=== PATIENT | female | born 1935 | race Caucasian/White ===

== ENCOUNTER 2016-08-24 17:09 | Inpatient (IN) | payer OTHER ==
[~2016-08-24] VITALS: Ht 162.6 cm; Wt 64.8 kg
[~2016-08-24 17:09] MED LIST: ANT25 PO; ASPI325T45 PO; ATOR-22 PO; CITA20TA4 PO; CYAN10004 PO; LCTS240 PO; LISI1TAB3 PO; LISI20TA3 PO; METO-452 PO; OXYB10TA13 PO; WARF5TAB90 PO
[2016-08-24] MEDS ORDERED: PANTOprazole INJ 80 MG in DEXTROSE 5% 100ML IV SCH (17:45)
[2016-08-24 17:55] LABS: URINE APPEARANCE CLEAR (CLEAR); URINE BILIRUBIN NEG (NEG); URINE COLOR YELLOW; URINE NITRITE NEG (NEG); URINE SPECIFIC GRAVITY 1.017 (1.000-1.030); UROBILINOGEN NEG (NEG); ZZUR CULT IF INDIC CLEAN CATCH NO
[2016-08-24 18:00] LABS: MANUAL MICROSCOPIC REQUIRED? NO; REVIEW REQ? NO
[2016-08-24] MEDS ORDERED: PANTOprazole INJ 40 MG in DEXTROSE 5% 100ML IV SCH (18:00)
[2016-08-24 18:22] LABS: INR 2.1 (0.9-1.1); PARTIAL THROMBOPLASTIN RATIO 1.1; PROTHROMBIN TIME (PATIENT) 22.9 SECONDS (9.0-12.0)
[2016-08-24 18:24] LABS: HEMATOCRIT 22.8 % (37-47); MEAN CORPUSCULAR HEMOGLOBIN 18.5 pg (25-34); MEAN CORPUSCULAR HGB CONC 28.9 g/dl (32-36); MEAN PLATELET VOLUME 8.3 fL (7.4-10.4); PLATELET COUNT 326 K/uL (130-400); RED BLOOD COUNT 3.56 M/uL (4.2-5.4); WHITE BLOOD COUNT 6.57 K/uL (4.8-10.8)
[2016-08-24] MEDS ORDERED: SERT50TA PO (18:25)
[2016-08-24] MEDS ORDERED: WARF2TAB8 PO (18:25)
[2016-08-24 18:30] LABS: BLOOD UREA NITROGEN 16 mg/dl (7-18); CALCIUM 8.5 mg/dl (8.5-10.1); CARBON DIOXIDE 27 mmol/L (21-32); CHLORIDE 108 mmol/L (98-107); CREATININE 0.81 mg/dl (0.60-1.20); GLUCOSE 92 mg/dl (70-99); POTASSIUM 4.1 mmol/L (3.5-5.1); SODIUM 142 mmol/L (136-145)
[2016-08-24] MEDS ORDERED: ACET500T57 PO (18:39)
[2016-08-24] MEDS ORDERED: MRLP17X PO (18:39)
[2016-08-24] MEDS ORDERED: LACT10SO17 PO (18:39)
[2016-08-24] MEDS ORDERED: ONDANSETRON INJ 2 MG/ML 2 ML VIAL IV PRN (18:45)
[2016-08-24] MEDS ORDERED: ACETAMINOPHEN 325 MG TAB PO PRN (18:45)
[2016-08-24] MEDS ORDERED: PHYTONADIONE 5 MG TAB PO STA (18:53)
[2016-08-24] MEDS ORDERED: SODIUM CHLORIDE 0.9% 1000ML 1,000 ML IV SCH (19:00)
[2016-08-24 19:20] VITALS: BP 122/75; PULSE 89; TEMP 36.8; O2SAT 100; Ht 162.6 cm; Wt 64.8 kg
[2016-08-24 19:46] LABS: BASO % 0.9 %; BASO ABS # 0.06 K/uL (0-0.2); COMPLETE YES; EOS % 4.4 %; HYPOCHROMIA PRESENT; IG% 0.2 %; LYMPH % 27.4 %; MICROCYTOSIS PRESENT; MONO % 12.5 %; NEUT % 54.6 %; POLYCHROMASIA 1+; TEAR DROP CELLS 1+
--- NOTE | 2016-08-24 20:48 | History and Physical ---
History & Physical Date & Time of Service: August 24, 2016 at 19:05 Chief Complaint: Hemoglobins Are Low Primary Care Physician: Vipul Eduardo M.D.([email or web address]) History of Present Illness Source: patient, family (sons at bedside) This is an 81 year old female with PMH of AF on Coumadin, hx TIA, hypertension, and other problems listed below who was sent to the ED from PCP Dr. Eduardo's office for abnormal labs. Patient was seen in clinic today for routine f/u and outpatient Hg was 6.8 with baseline of 12 on last labs in early 2015. Patient reports generalized weakness, fatigue, PRIETO, intermittent lightheadedness for past few months. She denies noting dark/ tarry stool or hematochezia. No other bleeding noted. She bruises easily. Denies weight loss, fever, URI sx, cough, dyspnea at rest, palpitations, abdominal pain, nausea, vomiting, diarrhea, constipation, dysuria, frequency, focal neurological symptoms. Denies prior GIB. Last colonoscopy in 2013 in [place] significant for polypectomy of tubular adenoma. No prior EGD. Denies hx of GERD or PUD. Last dose of Coumadin was this morning. Denies taking NSAIDs. In the ER rectal exam showed dark brown heme positive per ER provider. 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 (8) TIA (transient ischemic attack) Status: Resolved Surgical Problems: (1) S/P oophorectomy Permanent Comment: left Status: Chronic (2) S/P partial colectomy Permanent Comment: 04/26/98 Status: Chronic (3) S/P partial hysterectomy Status: Chronic (4) S/P small bowel resection Permanent Comment: 01/18/99 Status: Chronic Family History FH: cancer Social History Smoking Status: Never Smoker Alcohol Use: none Marital Status: Multi-Drug Resistant Organisms History of MDRO: No Allergies Coded Allergies: No Known Allergies (Unverified , 08/24/16) Home Medications Scheduled Atorvastatin (Lipitor), 20 MG PO DAILY Lisinopril (Zestril), 30 MG PO DAILY Metoprolol Succinate (Toprol Xl), 25 MG PO DAILY Sertraline (Zoloft), 1.5 TAB PO DAILY Warfarin Sod (Jantoven), 2 MG PO DIRECTED Scheduled PRN Acetaminophen (Acetaminophen), 1,000 MG PO Q6 PRN for Pain or Fever Lactulose (Chronulac), 15 ML PO BID PRN for Constipation Polyethylene (Miralax), 17 GM PO DAILY PRN for Constipation Review of Systems Ten systems reviewed and negative except as noted in HPI. Physical Exam Vital Signs Date Time Temp Pulse Resp B/P Pulse Ox O2 Delivery O2 Flow Rate FiO2 08/24/16 17:15 37.0 98 18 100/67 100 Room Air General Appearance: WD/WN, no apparent distress, + pertinent finding (pleasant alert elderly female, appears comfortable, not in distress, sons at bedside) Head: normocephalic, atraumatic Eyes: normal inspection, PERRL, EOMI ENT: hearing grossly normal, pharynx normal Neck: supple, trachea midline Respiratory/Chest: lungs clear, normal breath sounds, no respiratory distress, no accessory muscle use Cardiovascular: no murmur, + irregularly irregular (rate 90s) Abdomen/GI: normal bowel sounds, non tender, soft Diagnostics Laboratory Results Results Past 24 Hours Test 08/24/16 17:35 08/24/16 18:01 Range/Units Urine Color YELLOW Urine Appearance CLEAR CLEAR Urine pH 6.0 4.5-7.5 Urine Specific [place] 1.017 1.000-1.030 Urine Protein NEG NEG Urine Glucose (UA) NEG NEG Urine Ketones NEG NEG Urine Occult Blood NEG NEG Urine Nitrite NEG NEG Urine Bilirubin NEG NEG Urine Urobilinogen NEG NEG Urine Leukocyte Esterase SMALL NEG Urine WBC (Auto) 1-5 0-5 /hpf Urine RBC (Auto) 0-4 0-4 /hpf Urine Hyaline Casts (Auto) 1-5 0-5 /lpf Urine Epithelial Cells (Auto) 10-20 0-5 /lpf Urine Bacteria (Auto) NEG NEG White Blood Count 6.57 4.8-10.8 K/uL Red Blood Count 3.56 4.2-5.4 M/uL Hemoglobin 6.6 12.0-16.0 g/dL Hematocrit 22.8 37-47 % Mean Corpuscular Volume 64.0 80-100 fL Mean Corpuscular Hemoglobin 18.5 25-34 pg Mean Corpuscular Hemoglobin Concent 28.9 32-36 g/dl Platelet Count 326 130-400 K/uL Mean Platelet Volume 8.3 7.4-10.4 fL RDW Standard Deviation 45.2 36.4-46.3 fL RDW Coefficient of Variation 19.2 11.5-14.5 % Prothrombin Time 22.9 9.0-12.0 SECONDS Prothromb Time International Ratio 2.1 0.9-1.1 Activated Partial Thromboplast Time 29.1 21.0-31.0 SECONDS Partial Thromboplastin Ratio 1.1 Sodium Level 142 136-145 mmol/L Potassium Level 4.1 3.5-5.1 mmol/L Chloride Level 108 98-107 mmol/L Carbon Dioxide Level 27 21-32 mmol/L Anion Gap 7.0 3-11 mmol/L Blood Urea Nitrogen 16 7-18 mg/dl Creatinine 0.81 0.60-1.20 mg/dl Est Creatinine Clear Calc Drug Dose 49.2 ml/min Estimated GFR () 78.9 Estimated GFR (Non- 68.1 BUN/Creatinine Ratio 20.0 10-20 Random Glucose 92 70-99 mg/dl Calcium Level 8.5 8.5-10.1 mg/dl Troponin I < 0.015 0-0.045 ng/ml EKG atrial fibrillation, 95 bpm, no ST or T wave abnormality Impression Assessment and Plan SYMPTOMATIC ANEMIA Secondary to GI bleed in setting of Coumadin anticoagulation (INR is 2.1) Possible upper GIB; noted to have dark heme + stool by ER provider Hemodynamics relatively stable- HR 90s, BP 100 systolic Hg 6.8 as outpatient earlier today -> 6.6 in ER; baseline 12 in early 2005 No prior EGD; colonoscopy 2013- tubular adenoma Continue Protonix drip started in ER Will give 2 units FFP and 5 mg PO vitamin K Transfuse 1 unit pRBC; will hold additional 2 units Monitor H/H q8h; transfuse PRN for goal Hg > 8 Gentle IVFs at 70 cc/ hour NPO except sips/ chips, then NPO after midnight Recheck CBC and INR in am Consult GI; Case aware PERMANENT ATRIAL FIBRILLATION Rate in 90s Continue metoprolol with parameters Hold Coumadin for GIB HYPERTENSION BP is low normal 100 systolic Gentle IVF's Hold lisinopril Continue metoprolol with parameters DEPRESSION Continue Zoloft DYSLIPIDEMIA Hold statin for now DVT PROPHYLAXIS SCDs due to GIB FULL CODE Per my discussion with the patient DISPOSITION Admit to telemetry Lives alone Follows with Dr. Eduardo for primary care Patient seen in collaboration with Dr. Morse. Please see her addendum. ATTENDING NOTE : record reviewed pt interviewed and examined care coordinated with Melissa Bauman PA-C please see her documentation for detail patient history Briefly 81 yo F with hx of Chronic Afib on Coumadin found to have profound anemia during routine office visit pt reports of feeling weak and tired, getting fatigued easily , poor endurance does not recall having dark stool Hb 6.8 with microcytic anemia , concern for possible GI bleed pt in Coumadin INR therapeutic 2.1 stool heme occult positive in ED P/E: GEN : no sign of distress , sclera non icteric HEENT : nAD HT ; regular S1/S2 LUNGS; CTA no wheeze or rales ABDOMEN : soft,non tender EXT : no rash or deformity NEURO: AAO x3, no focal deficit A/P: SYMPTOMATIC ANEMIA : ordered for PRRB tx -goal to Keep H b> 8 pt remains stable hemodynamically NPO ordered for PPI gtt monitor H&H closely GI eval requested possible endoscopic procedure tomorrow CHRONIC AFIB : remains rate controlled monitor in tele cont beta nicole Hold Coumadin for concern for GI bleed need to reverse INR for GI /Endoscopic procedure tomorrow ordered for FFP and vit K repeat INR in AM FULL CODE Please refer to Melissa Zambrano documentation for discussion of other issues Erika Morse MD Resuscitation Status FULL RESUSCITATION VTE Prophylaxis VTE Risk Assessment Done? Y/N: Yes Risk Level: Moderate Given or contraindicated: T.E.D. Stockings, SCD's Additional Copies To Vipul Eduardo M.D.(HUGH)
[2016-08-24] MEDS ORDERED: PNEUMOCOCCAL POLYSACCHARIDES 25 MCG/0.5 ML VIAL/SYR IM. ONE (21:30)
[2016-08-24] MEDS ORDERED: PNEUMOCOCCAL ADMINISTRATION CHARGE ONE (21:30)
[2016-08-24] MEDS: PANTOprazole INJ 40 MG in DEXTROSE 5% 100ML IV SCH (22:04)
--- NOTE | 2016-08-24 23:04 | EMERGENCY ROOM VISIT NOTE ---
History Report prepared by Elidia: Lauren Betancourt Under the Supervision of: Dr. Harlan Deleon M.D. First contact with patient: 17:22 Chief Complaint: ABNORMAL LABS Stated Complaint: HEMOGLOBINS ARE LOW History of Present Illness The patient is a 81 year old female who presents to the Emergency Room with abnormal labs. The patient recently saw her PCP and had her labs checked for the first time in about 1 year. Her hemoglobin level was 6 and she was called today and told to come to the ED for further evaluation. The patient reports that she has been feeling more weak and tired recently. She notes that her stools have been darker than usual. She also reports shortness of breath with exertion. The patient denies headache, vomiting, hematochezia, abdominal pain, chest pain, urinary symptoms, and any leg swelling. She denies any recent injury or falls. She denies any cuts or bleeding. She denies any history of ulcers. She has been eating normally. She is on Coumadin. The patient has been taking her medications as prescribed. She notes only intermittent NSAID use as needed for headaches. Source of History: patient Onset: [employer] Position: other (global) Symptom Intensity: hemoglobin of 6 Timing: constant Modifying Factors (Worsening): exertion Associated Symptoms: + SOB, + fatigue, + melena, + weakness, No abdominal pain, No chest pain, No headache, No hematochezia, No urinary symptoms, No vomiting Review of Systems See HPI for pertinent positives & negatives. A total of 10 systems reviewed and were otherwise negative. 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 Social History Smoking Status: Never Smoker Alcohol Use: none Drug Use: none Marital Status: Housing Status: lives with family Current/Historical Medications Scheduled Atorvastatin (Lipitor), 20 MG PO DAILY Lisinopril (Zestril), 30 MG PO DAILY Metoprolol Succinate (Toprol Xl), 25 MG PO DAILY Sertraline (Zoloft), 1.5 TAB PO DAILY Warfarin Sod (Jantoven), 2 MG PO DIRECTED Scheduled PRN Acetaminophen (Acetaminophen), 1,000 MG PO Q6 PRN for Pain or Fever Lactulose (Chronulac), 15 ML PO BID PRN for Constipation Polyethylene (Miralax), 17 GM PO DAILY PRN for Constipation Allergies Coded Allergies: No Known Allergies (Unverified , 08/24/16) Physical Exam Vital Signs Date Time Temp Pulse Resp B/P Pulse Ox O2 Delivery O2 Flow Rate FiO2 08/24/16 17:15 37.0 98 18 100/67 100 Room Air Physical Exam GENERAL: Patient is well appearing and in no acute distress. HEENT: No acute trauma, normocephalic atraumatic, mucous membranes moist, no nasal congestion, no scleral icterus, pale conjunctiva. NECK: No stridor, no adenopathy, no meningismus, trachea is midline. LUNGS: No dyspnea. Clear to auscultation and equal bilaterally. No wheeze, no rhonchi. HEART: Regular rate and rhythm. No murmurs, rubs, gallops appreciated. ABDOMEN: Soft, nontender, bowel sounds positive, no masses appreciated, no peritonitis. RECTAL: Dark brown, heme positive stool, normal perirectal area, no tenderness, no lacerations. BACK: No midline tenderness, no CVA tenderness EXTREMITIES: Normal motion all extremities, no cyanosis, no edema. NEUROLOGIC: Alert and oriented, no acute motor or sensory deficits, no focal weakness, cranial nerves grossly intact. SKIN: No rash, no jaundice, no diaphoresis. Medical Decision & Procedures Laboratory Results 08/24/16 18:01 Red Blood Count 3.56, Mean Corpuscular Volume 64.0, Mean Corpuscular Hemoglobin 18.5, Mean Corpuscular Hemoglobin Concent 28.9, Mean Platelet Volume 8.3, Neutrophils (%) (Auto) 54.6, Lymphocytes (%) (Auto) 27.4, Monocytes (%) (Auto) 12.5, Eosinophils (%) (Auto) 4.4, Basophils (%) (Auto) 0.9, Neutrophils # (Auto ) 3.59, Lymphocytes # (Auto) 1.80, Monocytes # (Auto) 0.82, Eosinophils # (Auto ) 0.29, Basophils # (Auto) 0.06 08/24/16 18:01 Test 08/24/16 17:35 08/24/16 18:01 Urine Color YELLOW Urine Appearance CLEAR (CLEAR) Urine pH 6.0 (4.5-7.5) Urine Specific [place] 1.017 (1.000-1.030) Urine Protein NEG (NEG) Urine Glucose (UA) NEG (NEG) Urine Ketones NEG (NEG) Urine Occult Blood NEG (NEG) Urine Nitrite NEG (NEG) Urine Bilirubin NEG (NEG) Urine Urobilinogen NEG (NEG) Urine Leukocyte Esterase SMALL (NEG) Urine WBC (Auto) 1-5 /hpf (0-5) Urine RBC (Auto) 0-4 /hpf (0-4) Urine Hyaline Casts (Auto) 1-5 /lpf (0-5) Urine Epithelial Cells (Auto) 10-20 /lpf (0-5) Urine Bacteria (Auto) NEG (NEG) White Blood Count 6.57 K/uL (4.8-10.8) Red Blood Count 3.56 M/uL (4.2-5.4) Hemoglobin 6.6 g/dL (12.0-16.0) Hematocrit 22.8 % (37-47) Mean Corpuscular Volume 64.0 fL (80-100) Mean Corpuscular Hemoglobin 18.5 pg (25-34) Mean Corpuscular Hemoglobin Concent 28.9 g/dl (32-36) Platelet Count 326 K/uL (130-400) Mean Platelet Volume 8.3 fL (7.4-10.4) Neutrophils (%) (Auto) 54.6 % Lymphocytes (%) (Auto) 27.4 % Monocytes (%) (Auto) 12.5 % Eosinophils (%) (Auto) 4.4 % Basophils (%) (Auto) 0.9 % Neutrophils # (Auto) 3.59 K/uL (1.4-6.5) Lymphocytes # (Auto) 1.80 K/uL (1.2-3.4) Monocytes # (Auto) 0.82 K/uL (0.11-0.59) Eosinophils # (Auto) 0.29 K/uL (0-0.5) Basophils # (Auto) 0.06 K/uL (0-0.2) RDW Standard Deviation 45.2 fL (36.4-46.3) RDW Coefficient of Variation 19.2 % (11.5-14.5) Immature Granulocyte % (Auto) 0.2 % Immature Granulocyte # (Auto) 0.01 K/uL (0.00-0.02) Polychromasia 1+ Hypochromasia PRESENT Microcytosis PRESENT Tear Drop Cells 1+ Prothrombin Time 22.9 SECONDS (9.0-12.0) Prothromb Time International Ratio 2.1 (0.9-1.1) Activated Partial Thromboplast Time 29.1 SECONDS (21.0-31.0) Partial Thromboplastin Ratio 1.1 Anion Gap 7.0 mmol/L (3-11) Est Creatinine Clear Calc Drug Dose 49.2 ml/min Estimated GFR () 78.9 Estimated GFR (Non- 68.1 BUN/Creatinine Ratio 20.0 (10-20) Calcium Level 8.5 mg/dl (8.5-10.1) Total Bilirubin 0.9 mg/dl (0.2-1) Direct Bilirubin 0.2 mg/dl (0-0.2) Aspartate Amino Transf (AST/SGOT) 18 U/L (15-37) Alanine Aminotransferase (ALT/SGPT) 16 U/L (12-78) Alkaline Phosphatase 56 U/L (45-117) Troponin I < 0.015 ng/ml (0-0.045) Total Protein 6.7 gm/dl (6.4-8.2) Albumin 3.3 gm/dl (3.4-5.0) Laboratory results as reviewed by me. Medications Administered Medications (Trade) Dose Ordered Sig/[place]aven Route Start Time Stop Time Status Last Admin Dose Admin Pantoprazole Sodium 80 mg/ Dextrose 120 ml @ 480 mls/hr TODAY@1745 IV 08/24/16 17:45 08/24/16 17:59 DC 08/24/16 17:45 480 MLS/HR Pantoprazole Sodium/Dextrose (Protonix Inj/D5 100ml) 100 ml @ 20 mls/hr Q5H IV 08/24/16 18:00 08/24/16 22:59 DC 08/24/16 19:10 20 MLS/HR ECG Indication: weakness Rate (beats per minute): 95 Rhythm: atrial fibrillation Findings: no acute ischemic change, other (normal QTC) ED Course 1722: The patient was evaluated in room C6. A complete history and physical exam was performed. The patient consented to receiving blood. At this time I discussed the results and treatment plan with the patient. I answered all pertaining questions that she had. She expressed understanding and verbalized agreement. 1731: I discussed the patient's case with her son and he is in agreement with the treatment plan as well. 1745: Pantoprazole Sodium 80 mg/Dextrose 120 ml @ 480 mls/hr IV 1746: I spoke with ADAM Iniguez. We discussed the patients case and [facility] 1800: Pantoprazole Sodium 40 mg/Dextrose 100 ml @ 20 mls/hr IV Medical Decision Differential: Diverticulitis, AVM, Coagulopathy, Colitis, Malignancy, Upper GI bleed, Fissure, Hemorrhoids, amongst other pathologies entertained. 81 yr old female arrives for evaluation of anemia. She notes feeling weak over the last few months having periodic dark stools. Clearly heme positive. History of GERD and is on Coumadin. INR 2.1 and discussed with hospitalist who will manage this. Given IV Protonix. 1 Unit PRBC ordered after extensive discussion of risks benefits with patient and she agrees. No abdominal TTP. Stable here and in no distress. Consults Time Called: 1741 Consulting Physician: Carol Bauman PA-C Returned Call: 1745 I spoke with ADAM Iniguez. We discussed the patients case and [facility]. Impression Primary Impression: Acute GI bleeding Additional Impression: Blood loss anemia Scribe Attestation The scribe's documentation has been prepared under my direction and personally reviewed by me in its entirety. I confirm that the note above accurately reflects all work, treatment, procedures, and medical decision making performed by me. Departure Information Dispostion Being Evaluated By Hospitalist Referrals Ruiz Davis M.D. (PCP) Patient Instructions My [facility] Problem Qualifiers
[2016-08-24 23:19] VITALS: BP 126/76; PULSE 90; TEMP 36.7; O2SAT 98
[2016-08-24 23:34] VITALS: BP 125/81; PULSE 85; TEMP 36.9; O2SAT 99
[2016-08-25] VITALS (24 sets, daily range): BP systolic 106–139; BP diastolic 59–96; PULSE 83–98; TEMP 36.5–36.9; O2SAT 93–100
[2016-08-25] MEDS: PANTOprazole INJ 40 MG in DEXTROSE 5% 100ML IV SCH ×3 (05:00→15:29)
[2016-08-25 07:48] LABS: HEMATOCRIT 24.2 % (37-47); MEAN CELL VOLUME 67.8 fL (80-100); MEAN CORPUSCULAR HEMOGLOBIN 20.7 pg (25-34); MEAN CORPUSCULAR HGB CONC 30.6 g/dl (32-36); MEAN PLATELET VOLUME 8.5 fL (7.4-10.4); PLATELET COUNT 264 K/uL (130-400); RED BLOOD COUNT 3.57 M/uL (4.2-5.4); WHITE BLOOD COUNT 6.07 K/uL (4.8-10.8)
--- NOTE | 2016-08-25 07:48 | Gastrointestinal Consultation ---
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 Pt was seen and evaluated this AM. She tells me as an outpatient she was feeling over all well up until about two three months ago. At this time, there was progressive worsening fatigue, weakness and PRIETO. She always felt well after resting. Denies any epigastric abdominal pain, signs of acid reflux, nausea, vomiting, black or bloody stools. Her last colonoscopy was in [facility] in 2013 and was overall benign - there is a distant history of colon CA w/ resection in 1998. Today, denies fever, chills, chest pain, SOB, abdominal pain, black/bloody stools. 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 Past Surgical History: left oophorectomy, partial colectomy 1998, partial hysterectomy, small bowel resection 1998 Family History FH: cancer Social History Smoking Status: Never Smoker Alcohol Use: none Drug Use: none Marital Status: Housing Status: lives with family Allergies Coded Allergies: No Known Allergies (Unverified , 08/24/16) Current Medications Home Meds and Scripts Medications Dose Route/Sig Max Daily Dose Days Date Category Dose Instructions Miralax (Polyethylene) 17 Gm Pow 17 Gm PO DAILY PRN 08/24/16 Reported Chronulac (Lactulose) 10 Gm/15 Ml Syrp 15 Ml PO BID PRN 08/24/16 Reported Acetaminophen 500 Mg Tab 1,000 Mg PO Q6 PRN 15 08/24/16 Reported Zoloft (Sertraline HCl) 50 Mg Tab 1.5 Tab PO DAILY 08/24/16 Reported Jantoven (Warfarin Sodium) 2 Mg Tab 2 Mg PO DIRECTED 08/24/16 Reported Take 2 mg by mouth on Sunday, Sunday, Sunday, Sunday. Take 4 mg by mouth on Sunday, , Sunday. Lipitor (Atorvastatin Calcium) 20 Mg Tab 20 Mg PO DAILY 05/05/15 Reported Zestril (Lisinopril) 30 Mg Tab 30 Mg PO DAILY 05/05/15 Reported Toprol Xl (Metoprolol Succinate) 50 Mg Tab 25 Mg PO DAILY 02/24/12 Reported Review of Systems Constitutional: No chills, No fever Respiratory: No cough, No shortness of breath Abdomen: No GI bleeding, No constipation, No diarrhea, No nausea, No pain, No vomiting Physical Exam Date Time Temp Pulse Resp B/P Pulse Ox O2 Delivery O2 Flow Rate FiO2 08/25/16 06:24 36.9 92 16 119/62 97 08/25/16 05:24 36.8 88 16 125/72 97 08/25/16 04:54 36.8 90 16 126/72 97 08/25/16 04:39 36.7 92 16 115/80 97 08/25/16 04:00 Room Air 08/25/16 03:45 36.7 88 16 116/81 97 08/25/16 02:45 36.8 93 16 115/86 97 08/25/16 02:15 36.8 84 20 117/79 98 08/25/16 02:08 36.8 84 16 118/71 98 08/25/16 01:04 36.8 88 16 110/59 97 08/25/16 00:04 36.7 98 20 120/77 99 08/24/16 23:59 Room Air 08/24/16 23:34 36.9 85 20 125/81 99 08/24/16 23:19 36.7 90 20 126/76 98 08/24/16 19:20 36.8 89 20 122/75 100 Room Air 08/24/16 17:15 37.0 98 18 100/67 100 Room Air General Appearance: no apparent distress Eyes: PERRL ENT: hearing grossly normal Neck: supple Respiratory/Chest: lungs clear Cardiovascular: no murmur, + irregularly irregular Abdomen: normal bowel sounds, non tender, soft, no organomegaly, no pulsatile mass Neurologic/Psych: alert, normal mood/affect, oriented x 3 Skin: normal color, warm/dry Laboratory Results Last 24 Hours Test 08/24/16 17:35 08/24/16 18:01 08/25/16 04:44 08/25/16 06:00 Urine Color YELLOW Urine Appearance CLEAR Urine pH 6.0 Urine Specific [place] 1.017 Urine Protein NEG Urine Glucose (UA) NEG Urine Ketones NEG Urine Occult Blood NEG Urine Nitrite NEG Urine Bilirubin NEG Urine Urobilinogen NEG Urine Leukocyte Esterase SMALL Urine WBC (Auto) 1-5 /hpf Urine RBC (Auto) 0-4 /hpf Urine Hyaline Casts (Auto) 1-5 /lpf Urine Epithelial Cells (Auto) 10-20 /lpf Urine Bacteria (Auto) NEG White Blood Count 6.57 K/uL Red Blood Count 3.56 M/uL Hemoglobin 6.6 g/dL Hematocrit 22.8 % Mean Corpuscular Volume 64.0 fL Mean Corpuscular Hemoglobin 18.5 pg Mean Corpuscular Hemoglobin Concent 28.9 g/dl Platelet Count 326 K/uL Mean Platelet Volume 8.3 fL Neutrophils (%) (Auto) 54.6 % Lymphocytes (%) (Auto) 27.4 % Monocytes (%) (Auto) 12.5 % Eosinophils (%) (Auto) 4.4 % Basophils (%) (Auto) 0.9 % Neutrophils # (Auto) 3.59 K/uL Lymphocytes # (Auto) 1.80 K/uL Monocytes # (Auto) 0.82 K/uL Eosinophils # (Auto) 0.29 K/uL Basophils # (Auto) 0.06 K/uL RDW Standard Deviation 45.2 fL RDW Coefficient of Variation 19.2 % Immature Granulocyte % (Auto) 0.2 % Immature Granulocyte # (Auto) 0.01 K/uL Polychromasia 1+ Hypochromasia PRESENT Microcytosis PRESENT Tear Drop Cells 1+ Prothrombin Time 22.9 SECONDS Prothromb Time International Ratio 2.1 Activated Partial Thromboplast Time 29.1 SECONDS Partial Thromboplastin Ratio 1.1 Sodium Level 142 mmol/L Potassium Level 4.1 mmol/L Chloride Level 108 mmol/L Carbon Dioxide Level 27 mmol/L Anion Gap 7.0 mmol/L Blood Urea Nitrogen 16 mg/dl Creatinine 0.81 mg/dl Est Creatinine Clear Calc Drug Dose 49.2 ml/min Estimated GFR () 78.9 Estimated GFR (Non- 68.1 BUN/Creatinine Ratio 20.0 Random Glucose 92 mg/dl Calcium Level 8.5 mg/dl Total Bilirubin 0.9 mg/dl Direct Bilirubin 0.2 mg/dl Aspartate Amino Transf (AST/SGOT) 18 U/L Alanine Aminotransferase (ALT/SGPT) 16 U/L Alkaline Phosphatase 56 U/L Troponin I < 0.015 ng/ml Total Protein 6.7 gm/dl Albumin 3.3 gm/dl Impression Patient is a 81 year old female with suspected SOLO without any s/s of gross GI bleeding - she caries a history of colon CA w/ resection in 1998. Plan NPO EGD today with Dr. Thakur Colonoscopy Sunday if admitted with Dr. Donnelly Primary team please arrange prep 20 mg of dulcolax at 1700 4L co-lytely 1500 NPO after midnight Continue current treatment Hold Coumadin Trend H&H Transfuse as needed PPI once daily Further recommendations pending results of EGD. GI to follow. ATTESTATION: I have performed a history and physical examination of this patient and reviewed the electronic record. Specifically, on history the patient has not noted bleeding or any significant gastrointestinal symptoms and on physical examination there is on abdominal tenderness. I have discussed the case with ADAM Tolbert. The above note reflects my findings, conclusions, and recommendations. Abdias Thakur MD
[2016-08-25 08:04] LABS: INR 1.6 (0.9-1.1); PROTHROMBIN TIME (PATIENT) 17.2 SECONDS (9.0-12.0)
[2016-08-25 08:22] LABS: BUN/CREATININE RATIO 18.3 (10-20); CREATININE 0.75 mg/dl (0.60-1.20); POTASSIUM 3.7 mmol/L (3.5-5.1)
[2016-08-25] MEDS: METOPROLOL SUCC 25MG EXT REL TAB PO SCH (08:48)
[2016-08-25 08:57] LABS: CALCIUM 8.8 mg/dl (8.5-10.1)
[2016-08-25] MEDS ORDERED: SERTRALINE HCL 50 MG TAB PO SCH (09:00)
[2016-08-25] MEDS ORDERED: PROPOFOL IV EMULSION 10 MG/ML 20 ML VIAL IV ONE (11:49)
[2016-08-25] MEDS ORDERED: LIDOCAINE HCL 2% 2 ML VIAL (20MG/ML) ONE (11:49)
[2016-08-25] MEDS ORDERED: PHENYLEPHRINE HCL INJ 10 MG/ML VIAL ONE (11:49)
--- NOTE | 2016-08-25 12:22 | GI REPORT ---
Procedure Date: 08/25/2016 11:34 AM Procedure: Upper GI endoscopy Indications: Iron deficiency anemia Medicines: Monitored Anesthesia Care Complications: No immediate complications. Estimated blood loss: None. Estimated Blood Loss: Estimated blood loss: none. Procedure: Pre-Anesthesia Assessment: - Prior to the procedure, a History and Physical was performed, and patient medications, allergies and sensitivities were reviewed. The patient's tolerance of previous anesthesia was reviewed. - ASA Grade Assessment: III - A patient with severe systemic disease. After obtaining informed consent, the endoscope was passed under direct vision. Throughout the procedure, the patient's blood pressure, pulse, and oxygen saturations were monitored continuously. The scope was introduced through the mouth, and advanced to the third part of the duodenum. Small bowel enteroscopy was deemed necessary. The upper GI endoscopy was accomplished with ease. The patient tolerated the procedure well. Findings: The upper third of the esophagus, middle third of the esophagus and lower third of the esophagus were normal. A mild Schatzki ring (acquired) was found at the gastroesophageal junction. A medium-sized hiatus hernia was present. The entire examined stomach was normal. Biopsies were taken with a cold forceps for Helicobacter pylori testing. The examined duodenum was normal. Biopsies for histology were taken with a cold forceps for evaluation of celiac disease. Verification of patient identification for the specimens was done by the physician and nurse using the patient's name, date and medical record number. Impression: - Normal upper third of esophagus, middle third of esophagus and lower third of esophagus. - Mild Schatzki ring. - Medium-sized hiatus hernia. - Normal stomach. Biopsied. - Normal examined duodenum. Biopsied. Recommendation: - Perform a colonoscopy at appointment to be scheduled. - [facility]. Abdias Thakur M.D. Abdias Thakur MD 08/25/2016 12:23:17 PM This report has been signed electronically. Note Initiated On: 08/25/2016 11:34 AM I attest to the content of the Intraoperative Record and orders documented therein, exceptions below
[2016-08-25] MEDS ORDERED: ESMOLOL HCL 10 MG/ML 10 ML VIAL ONE (12:26)
--- NOTE | 2016-08-25 13:47 | Anesthesiology Progress Note ---
Anesthesia Post Op Note Date & Time August 25, 2016 at 13:47 Vital Signs Pain Intensity: 0.0 Vital Signs Past 12 Hours Date Time Temp Pulse Resp B/P Pulse Ox O2 Delivery O2 Flow Rate FiO2 08/25/16 13:19 36.5 83 22 115/71 100 Room Air 08/25/16 12:53 98 20 142/82 98 Room Air 08/25/16 12:35 98 20 109/77 98 Room Air 08/25/16 12:20 90 20 111/81 98 Room Air 08/25/16 11:06 37 95 20 119/69 97 Room Air 08/25/16 10:39 36.9 84 18 117/72 96 Room Air 08/25/16 10:38 36.9 84 18 117/72 96 Room Air 08/25/16 08:00 100 Room Air 08/25/16 07:46 36.9 98 16 139/96 100 Room Air 08/25/16 06:24 36.9 92 16 119/62 97 08/25/16 05:24 36.8 88 16 125/72 97 08/25/16 04:54 36.8 90 16 126/72 97 08/25/16 04:39 36.7 92 16 115/80 97 08/25/16 04:00 Room Air 08/25/16 03:45 36.7 88 16 116/81 97 08/25/16 02:45 36.8 93 16 115/86 97 08/25/16 02:15 36.8 84 20 117/79 98 08/25/16 02:08 36.8 84 16 118/71 98 Notes Mental Status: alert / awake / arousable, participated in evaluation Pt Amnestic to Procedure: Yes Nausea / Vomiting: adequately controlled Pain: adequately controlled Airway Patency, RR, SpO2: stable & adequate BP & HR: stable & adequate Hydration State: stable & adequate Anesthetic Complications: no major complications apparent
--- NOTE | 2016-08-25 16:28 | Discharge Instructions ---
Discharge Instructions Date of Service August 25, 2016. Admission Reason for Admission: Anemia Gi Bleed Discharge Discharge Diagnosis / Problem: ANEMIA /POSSIBLE GASTROINTESTINAL BLEED Discharge Goals Goal(s): Decrease discomfort, Improve disease control, Diagnostic testing Activity Recommendations Activity Limitations: resume your previous activity . Instructions / Follow-Up Instructions / Follow-Up HOSPITAL FOLLOW UP WITH DR SMITH IN A WEEK , OFFICE WILL CALL WITH APPOINTMENT YOU CAN START TAKING COUMADIN , LAB WORK : PT/INR , COMPLETE BLOOD COUNT ON Sunday08/28/[address] SMITH OFFICE IF YOU NOTICE DARK STOOL DO NOT TAKE MOTRIN ,ALEVE, NAPROXEN , IBUPROFEN, ADVIL -NO NSAID'S MAY CAUSE WORSENING OF ACID REFLUX , GASTRITIS CAUSING BLEEDING YOU WILL NEED AN OUT PATIENT COLONOSCOPY GASTROENTEROLOGY OFFICE WILL CALL TO SCHEDULE THE APPOINTMENT , COUMADIN NEEDS TO BE ON HOLD 2-3 DAYS PRIOR TO COLONOSCOPY PLEASE CONTACT COUMADIN CLINIC FOR INSTRUCTIONS Current Hospital Diet Patient's current hospital diet: AHA Diet (Heart Healthy) Discharge Diet Recommended Diet: AHA Diet (Heart Healthy) Procedures Procedures Performed: EGD with biopsy Pending Studies Studies pending at discharge: yes List of pending studies: COMPLETE BLOOD COUNT ON Sunday08/28/16 Medical Emergencies . Who to Call and When: Medical Emergencies: If at any time you feel your situation is an emergency, please call 911 immediately. . Non-Emergent Contact Non-Emergency issues call your: Primary Care Provider . . "Provider Documentation" section prepared by Erika Morse. . VTE Core Measure Inpt VTE Proph given/why not?: Jacinto Arthur, SCD's [place] Drug Monitoring Program Search Results: no issues identified
--- NOTE | 2016-08-25 20:08 | Progress Note ---
Internal Med Progress Note Date of Service: August 25, 2016. Provider Documentation: SUBJECTIVE: feels fine , weakness and fatigue has improved no dark stool tolerating diet well had EGD earlier , normal finding , no evidence of bleeding noted pt is will be scheduled for out pt colonoscopy next week OBJECTIVE: Vital Signs-as noted below Exam: General-elderly female, very pleasant , no sign of distress Eyes-sclera non icteric ENT-NAd Neck-no JVD , no thyromegaly Lungs-CTA Heart-regular S1/S2 Abdomen-soft, non tender Extremities-no lower ext edema, no rash or deformity Neuro-no focal neurological deficit , AAO x3 Lab data as noted below. ASSESSMENT & PLAN: SYMPTOMATIC ANEMIA possible secondary to GI bleed in setting of Coumadin anticoagulation (INR is 2.1) Possible upper GIB; noted to have dark heme + stool by ER provider Hemodynamics relatively stable- HR 90s, BP 100 systolic on presentation Hg 6.8 as outpatient -> 6.6 in ER; baseline 12 in early 2005 No prior EGD; colonoscopy 2013- tubular adenoma pt given 1 unit of PRBC transfusion , Hb improved to 7.6 appropriate correction will order 1 more Unit of PRBC tx today -goal Hb > 8 given 2 units FFP and 5 mg PO vitamin K to reverse INR for EGD underwent EGD -no evidence of bleeding noted diet advanced IV Protonix D/aditya appreciate GI eval plan to discharge home after correction of anemia out pt colonoscopic eval PERMANENT ATRIAL FIBRILLATION remains rate controlled in Afib Continue metoprolol with parameters Hold Coumadin for GIB HYPERTENSION BP stable Continue metoprolol with parameters DEPRESSION Continue Zoloft DYSLIPIDEMIA resume statin DVT PROPHYLAXIS scd and Teds avoid anticoagulation due to concern for GI bleed /anemia DISPOSITION Plan for discharge home tomorrow Medicine follow up with Dr Eduardo pt will need out pt follow up with GI for colonoscopy Vital Signs: Date Time Temp Pulse Resp B/P Pulse Ox O2 Delivery O2 Flow Rate FiO2 08/25/16 19:38 36.7 96 18 106/76 96 Room Air 08/25/16 18:49 36.9 85 16 125/77 98 08/25/16 17:49 36.8 91 16 108/66 95 08/25/16 17:30 36.5 92 17 111/81 97 08/25/16 16:57 36.6 95 16 106/66 96 Room Air 08/25/16 16:00 96 Room Air 08/25/16 13:19 36.5 83 22 115/71 100 Room Air 08/25/16 12:53 98 20 142/82 98 Room Air 08/25/16 12:35 98 20 109/77 98 Room Air 08/25/16 12:20 90 20 111/81 98 Room Air 08/25/16 11:06 37 95 20 119/69 97 Room Air 08/25/16 10:39 36.9 84 18 117/72 96 Room Air 08/25/16 10:38 36.9 84 18 117/72 96 Room Air 08/25/16 08:00 100 Room Air 08/25/16 07:46 36.9 98 16 139/96 100 Room Air 08/25/16 06:24 36.9 92 16 119/62 97 08/25/16 05:24 36.8 88 16 125/72 97 08/25/16 04:54 36.8 90 16 126/72 97 08/25/16 04:39 36.7 92 16 115/80 97 08/25/16 04:00 Room Air 08/25/16 03:45 36.7 88 16 116/81 97 08/25/16 02:45 36.8 93 16 115/86 97 08/25/16 02:15 36.8 84 20 117/79 98 08/25/16 02:08 36.8 84 16 118/71 98 08/25/16 01:04 36.8 88 16 110/59 97 08/25/16 00:04 36.7 98 20 120/77 99 08/24/16 23:59 Room Air 08/24/16 23:34 36.9 85 20 125/81 99 08/24/16 23:19 36.7 90 20 126/76 98 Lab Results: Results Past 24 Hours Test 08/25/16 06:44 08/25/16 14:17 Range/Units White Blood Count 6.07 4.8-10.8 K/uL Red Blood Count 3.57 4.2-5.4 M/uL Hemoglobin 7.4 7.7 12.0-16.0 g/dL Hematocrit 24.2 27.0 37-47 % Mean Corpuscular Volume 67.8 80-100 fL Mean Corpuscular Hemoglobin 20.7 25-34 pg Mean Corpuscular Hemoglobin Concent 30.6 32-36 g/dl RDW Standard Deviation 51.6 36.4-46.3 fL RDW Coefficient of Variation 21.2 11.5-14.5 % Platelet Count 264 130-400 K/uL Mean Platelet Volume 8.5 7.4-10.4 fL Prothrombin Time 17.2 9.0-12.0 SECONDS Prothromb Time International Ratio 1.6 0.9-1.1 Sodium Level 142 136-145 mmol/L Potassium Level 3.7 3.5-5.1 mmol/L Chloride Level 107 98-107 mmol/L Carbon Dioxide Level 27 21-32 mmol/L Anion Gap 8.0 3-11 mmol/L Blood Urea Nitrogen 14 7-18 mg/dl Creatinine 0.75 0.60-1.20 mg/dl Est Creatinine Clear Calc Drug Dose 50.8 ml/min Estimated GFR () 86.6 Estimated GFR (Non- 74.8 BUN/Creatinine Ratio 18.3 10-20 Random Glucose 84 70-99 mg/dl Calcium Level 8.8 8.5-10.1 mg/dl
[2016-08-25] MEDS: PANTOprazole SOD 40 MG TAB PO SCH (20:34)
[2016-08-26 00:08] VITALS: BP 110/70; PULSE 74; TEMP 36.7; O2SAT 96
[2016-08-26 06:26] LABS: HEMATOCRIT 29.4 % (37-47)
[2016-08-26 06:41] LABS: INR 1.4 (0.9-1.1); PROTHROMBIN TIME (PATIENT) 15.2 SECONDS (9.0-12.0)
[2016-08-26] MEDS: METOPROLOL SUCC 25MG EXT REL TAB PO SCH (07:53)
[2016-08-26] MEDS: PANTOprazole SOD 40 MG TAB PO SCH (07:53)
[2016-08-26 07:57] VITALS: BP 138/78; PULSE 100; TEMP 36.6; O2SAT 100
[2016-08-26 08:31] VITALS: O2SAT 100
[2016-08-26] MEDS ORDERED: ATORVASTATIN 20 MG TAB PO SCH (09:00)
[2016-08-26] MEDS ORDERED: LISINOPRIL 10 MG TAB PO SCH (09:00)
[2016-08-26 10:57] VITALS: BP 138/78; PULSE 100; TEMP 36.6; O2SAT 100
--- NOTE | 2016-08-26 13:24 | Progress Note ---
Internal Med Progress Note Date of Service: August 26, 2016. Provider Documentation: SUBJECTIVE: pt been ready since 8 am today to discharged no complain of fatigue or weakness, no SOB no dark stool morning H&H shows Hb 9 no nausea finished regular diet breakfast Son and daughter present at bedside OBJECTIVE: Vital Signs-as noted below Exam: General-elderly female, very pleasant , no sign of distress Eyes-sclera non icteric ENT-NAd Neck-no JVD , no thyromegaly Lungs-CTA Heart-regular S1/S2 Abdomen-soft, non tender Extremities-no lower ext edema, no rash or deformity Neuro-no focal neurological deficit , AAO x3 Lab data as noted below. ASSESSMENT & PLAN: SYMPTOMATIC ANEMIA possible secondary to GI bleed in setting of Coumadin anticoagulation (INR i 2.1 ) Possible upper GIB; noted to have dark heme + stool by ER provider Hemodynamics relatively stable- HR 90s, BP 100 systolic on presentation Hg 6.8 as outpatient -> 6.6 in ER; baseline 12 in early 2005 No prior EGD; colonoscopy 2013- tubular adenoma pt given total 2 units of PRBC transfusion , Hb improved to ~9 appropriate correction given 2 units FFP and 5 mg PO vitamin K to reverse INR for EGD underwent EGD -no evidence of bleeding noted appreciate GI eval plan to discharge home after correction of anemia out pt colonoscopic eval Coumadin resumed, needs to be held 2-3 days prior to coloscopy needs to be coordinated with Coumadin clinic stable to be discharged home today PERMANENT ATRIAL FIBRILLATION remains rate controlled in Afib Continue metoprolol with parameters Coumadin resumed -high risk for CVA ; Hx of prior TIA Calculated CHAD2 score ~3 pt will have repeat Lab check CBC , PT/INR check on Sunday08/28/16 Coumadin needs to be held 2-3 days prior to coloscopy needs to be coordinated with Coumadin clinic HYPERTENSION BP stable Continue metoprolol /Lisinopril DEPRESSION Continue Zoloft DYSLIPIDEMIA on statin FORGETFULNESS /POSSIBLE EARLY DEMENTIA /DEPRESSION : pt's children Daughter and son are concern regarding pt's memory and cognitive decline having more forgetfulness, reports of paying same bill twice strong family hx of dementia also been depressed since her last October pt recently moved to [facility] in [facility] was scheduled to see Neurology for possible dementia assessment pt's last visit to Dr Eduardo on 08/24/16 where her depression symptom was addressed Zoloft dose was increased to 75 mg daily ( was on 50 mg daily ) pt wants to follow up with her Family physician for depression /dementia management pt and family counselled regarding safety issues encouraged the Daughter /son to help in financial decision making /paying bills and participate in medical decision making family in agreement DVT PROPHYLAXIS scd and Teds avoid anticoagulation due to concern for GI bleed /anemia DISPOSITION discharge home today Medicine follow up with Dr Eduardo pt will need out pt follow up with GI for colonoscopy Vital Signs: Date Time Temp Pulse Resp B/P Pulse Ox O2 Delivery O2 Flow Rate FiO2 08/26/16 10:57 36.6 100 16 100 Room Air 08/26/16 08:31 100 Room Air 08/26/16 08:00 Room Air 08/26/16 07:57 36.6 100 16 138/78 100 Room Air 08/26/16 00:08 36.7 74 16 110/70 96 08/26/16 00:00 Room Air 08/25/16 22:06 36.5 88 16 126/78 93 Room Air 08/25/16 21:43 36.8 95 20 97 08/25/16 20:00 Room Air 08/25/16 19:49 36.6 85 16 117/71 98 08/25/16 19:38 36.7 96 18 106/76 96 Room Air 08/25/16 18:49 36.9 85 16 125/77 98 08/25/16 17:49 36.8 91 16 108/66 95 08/25/16 17:30 36.5 92 17 111/81 97 08/25/16 16:57 36.6 95 16 106/66 96 Room Air 08/25/16 16:00 96 Room Air 08/25/16 13:19 36.5 83 22 115/71 100 Room Air Lab Results: Results Past 24 Hours Test 08/25/16 14:17 08/26/16 05:40 Range/Units Hemoglobin 7.7 9.0 12.0-16.0 g/dL Hematocrit 27.0 29.4 37-47 % Prothrombin Time 15.2 9.0-12.0 SECONDS Prothromb Time International Ratio 1.4 0.9-1.1
--- NOTE | 2016-08-26 13:27 | Discharge Summary ---
Discharge Summary Date of Service August 26, 2016. Discharge Summary Admission Date: August 24, 2016 at 18:08 Discharge Date: August 26, 2016 Discharge Disposition: Home Principal Diagnosis: ANEMIA /POSSIBLE GASTROINTESTINAL BLEED Procedures: Procedures Performed: EGD with biopsy Impression: - Normal upper third of esophagus, middle third of esophagus and lower third of esophagus. - Mild Schatzki ring. - Medium-sized hiatus hernia. - Normal stomach. Biopsied. - Normal examined duodenum. Biopsied. Consultations: [facility] DR DANIEL Pending Studies/Follow-Up: List of pending studies: COMPLETE BLOOD COUNT ON Sunday08/28/16 Medication Reconciliation Continued Medications: Acetaminophen (Acetaminophen) 500 Mg Tab 1000 MG PO Q6 PRN for Pain or Fever for 15 Days, #120 TAB Atorvastatin (Lipitor) 20 Mg Tab 20 MG PO DAILY, TAB Lactulose (Chronulac) 10 Gm/15 Ml Syrp 15 ML PO BID PRN for Constipation Lisinopril (Zestril) 30 Mg Tab 30 MG PO DAILY, TAB Metoprolol Succinate (Toprol Xl) 50 Mg Tab 25 MG PO DAILY, TAB Polyethylene (Miralax) 17 Gm Pow 17 GM PO DAILY PRN for Constipation Sertraline (Zoloft) 50 Mg Tab 1.5 TAB PO DAILY, TAB Warfarin Sod (Jantoven) 2 Mg Tab 2 MG PO DIRECTED, TAB Take 2 mg by mouth on Sunday, Sunday, Sunday, Sunday. Take 4 mg by mouth on Sunday, , Sunday. Referrals At Discharge Follow up Referrals: Physician Referral - Please Call For Appointment with Vipul Smith M.D.( RINKU) Admission Information HPI (per Admitting provider): This is an 81 year old female with PMH of AF on Coumadin, hx TIA, hypertension, and other problems listed below who was sent to the ED from PCP Dr. Smith's office for abnormal labs. Patient was seen in clinic today for routine f/u and outpatient Hg was 6.8 with baseline of 12 on last labs in early 2016. Patient reports generalized weakness, fatigue, PRIETO, intermittent lightheadedness for past few months. She denies noting dark/ tarry stool or hematochezia. No other bleeding noted. She bruises easily. Denies weight loss, fever, URI sx, cough, dyspnea at rest, palpitations, abdominal pain, nausea, vomiting, diarrhea, constipation, dysuria, frequency, focal neurological symptoms. Denies prior GIB. Last colonoscopy in 2013 in [place] significant for polypectomy of tubular adenoma. No prior EGD. Denies hx of GERD or PUD. Last dose of Coumadin was this morning. Denies taking NSAIDs. In the ER rectal exam showed dark brown heme positive per ER provider. Physical Exam (per Admitting): General Appearance: WD/WN, no apparent distress, + pertinent finding ( pleasant alert elderly female, appears comfortable, not in distress, sons at bedside) Head: normocephalic, atraumatic Eyes: normal inspection, PERRL, EOMI ENT: hearing grossly normal, pharynx normal Neck: supple, trachea midline Respiratory/Chest: lungs clear, normal breath sounds, no respiratory distress, no accessory muscle use Cardiovascular: no murmur, + irregularly irregular (rate 90s) Abdomen/GI: normal bowel sounds, non tender, soft Hospital Course SYMPTOMATIC ANEMIA possible secondary to GI bleed in setting of Coumadin anticoagulation (INR i 2.1 ) Possible upper GIB; noted to have dark heme + stool by ER provider Hemodynamics relatively stable- HR 90s, BP 100 systolic on presentation Hg 6.8 as outpatient -> 6.6 in ER; baseline 12 in early 2005 No prior EGD; colonoscopy 2013- tubular adenoma pt given total 2 units of PRBC transfusion , Hb improved to ~9 appropriate correction given 2 units FFP and 5 mg PO vitamin K to reverse INR for EGD underwent EGD -no evidence of bleeding noted appreciate GI eval plan to discharge home after correction of anemia out pt colonoscopic eval Coumadin resumed, needs to be held 2-3 days prior to coloscopy needs to be coordinated with Coumadin clinic stable to be discharged home today PERMANENT ATRIAL FIBRILLATION remains rate controlled in Afib Continue metoprolol with parameters Coumadin resumed -high risk for CVA ; Hx of prior TIA Calculated CHAD2 score ~3 pt will have repeat Lab check CBC , PT/INR check on Sunday08/28/16 Coumadin needs to be held 2-3 days prior to coloscopy needs to be coordinated with Coumadin clinic HYPERTENSION BP stable Continue metoprolol /Lisinopril DEPRESSION Continue Zoloft DYSLIPIDEMIA on statin FORGETFULNESS /POSSIBLE EARLY DEMENTIA /DEPRESSION : pt's children Daughter and son are concern regarding pt's memory and cognitive decline having more forgetfulness, reports of paying same bill twice strong family hx of dementia also been depressed since her last October pt recently moved to [facility] in [facility] was scheduled to see Neurology for possible dementia assessment pt's last visit to Dr Smith on 08/24/16 where her depression symptom was addressed Zoloft dose was increased to 75 mg daily ( was on 50 mg daily ) pt wants to follow up with her Family physician for depression /dementia management pt and family counselled regarding safety issues encouraged the Daughter /son to help in financial decision making /paying bills and participate in medical decision making family in agreement DVT PROPHYLAXIS scd and Teds avoid anticoagulation due to concern for GI bleed /anemia DISPOSITION discharge home today Medicine follow up with Dr Smith pt will need out pt follow up with GI for colonoscopy Total time spent on discharge = This includes examination of the patient, discharge planning, medication reconciliation, and communication with other providers. Discharge Instructions Discharge Instructions Date of Service August 25, 2016. Admission Reason for Admission: Anemia Gi Bleed Discharge Discharge Diagnosis / Problem: ANEMIA /POSSIBLE GASTROINTESTINAL BLEED Discharge Goals Goal(s): Decrease discomfort, Improve disease control, Diagnostic testing Activity Recommendations Activity Limitations: resume your previous activity . Instructions / Follow-Up Instructions / Follow-Up HOSPITAL FOLLOW UP WITH DR SMITH IN A WEEK , OFFICE WILL CALL WITH APPOINTMENT YOU CAN START TAKING COUMADIN , LAB WORK : PT/INR , COMPLETE BLOOD COUNT ON Sunday08/28/[address] SMITH OFFICE IF YOU NOTICE DARK STOOL DO NOT TAKE MOTRIN ,ALEVE, NAPROXEN , IBUPROFEN, ADVIL -NO NSAID'S MAY CAUSE WORSENING OF ACID REFLUX , GASTRITIS CAUSING BLEEDING YOU WILL NEED AN OUT PATIENT COLONOSCOPY GASTROENTEROLOGY OFFICE WILL CALL TO SCHEDULE THE APPOINTMENT , COUMADIN NEEDS TO BE ON HOLD 2-3 DAYS PRIOR TO COLONOSCOPY PLEASE CONTACT COUMADIN CLINIC FOR INSTRUCTIONS Current Hospital Diet Patient's current hospital diet: AHA Diet (Heart Healthy) Discharge Diet Recommended Diet: AHA Diet (Heart Healthy) Procedures Procedures Performed: EGD with biopsy Pending Studies Studies pending at discharge: yes List of pending studies: COMPLETE BLOOD COUNT ON Sunday08/28/16 Medical Emergencies . Who to Call and When: Medical Emergencies: If at any time you feel your situation is an emergency, please call 911 immediately. . Non-Emergent Contact Non-Emergency issues call your: Primary Care Provider . . "Provider Documentation" section prepared by Erika Morse. . VTE Core Measure Inpt VTE Proph given/why not?: JONNY Wilson's [place] Drug Monitoring Program Search Results: no issues identified Additional Copies To Vipul Smith M.D.(RINKU) Abdias Daniel M.D.
[2016-08-26] MEDS ORDERED: WARFARIN SOD 2 MG TAB PO ONE (16:00)
[2016-08-27] MEDS ORDERED: BISACODYL 5 MG TABEC PO ONE (17:00)
[2016-08-27] MEDS ORDERED: LAVAGE SOLUTION 4000ML PO ONE (17:00)
[2016-09-06] MEDS ORDERED: CHOL100010 PO (08:08)
[2016-09-06] MEDS ORDERED: CALC-393 PO (08:08)
[2016-10-09] MEDS ORDERED: SERT-234 PO (10:26)
[2016-10-09] MEDS ORDERED: CYAN500T13 PO (10:26)
[2016-10-09] MEDS ORDERED: MECL1TAB42 PO (10:26)
[2016-10-12] MEDS ORDERED: METO-478 PO (15:28)
== END 2016-08-26 12:30 | disposition home or self-care (01) | DRG 378 ==
LOC: ENRESERVDT → ENRESERVTM → C.EDB 17:10 → C.2E 18:08 → C.MS2W 08-25 21:58
PROVIDERS: ADMIT Hospitalist; ATTEND Hospitalist
PROC: 0DJ08ZZ Inspection of Upper Intestinal Tract, Via Natural or Artificial Opening Endoscopic (ICD-10-PCS; principal; 2016-08-25 11:00)
DX: K92.2 Gastrointestinal hemorrhage, unspecified (principal); D59.4 Other nonautoimmune hemolytic anemias; F32.9 Major depressive disorder, single episode, unspecified; E78.5 Hyperlipidemia, unspecified; I48.2 Chronic atrial fibrillation; I10 Essential (primary) hypertension; Z86.73 Personal history of transient ischemic attack (TIA), and cerebral infarction without residual deficits; Z90.711 Acquired absence of uterus with remaining cervical stump; Z79.01 Long term (current) use of anticoagulants

== ENCOUNTER → 2016-10-02 | Outpatient (CLI) | payer OTHER ==
[~2016-10-02] MED LIST changes: +ACET500T57 PO; -ANT25 PO; -ASPI325T45 PO; +CALC-393 PO; +CHOL100010 PO; -CITA20TA4 PO; -CYAN10004 PO; +CYAN500T13 PO; +LACT10SO17 PO; -LCTS240 PO; -LISI20TA3 PO; +MECL1TAB42 PO; +METO-478 PO; +MRLP17X PO; +OPTIRAY 320 IV PRN; -OXYB10TA13 PO; +SERT-234 PO; +SERT50TA PO; +TPRSR50 PO; +WARF2TAB8 PO; -WARF5TAB90 PO
[2016-10-02 12:26] LABS: BLOOD UREA NITROGEN 16 mg/dl (7-18); BUN/CREATININE RATIO 21.8 (10-20); CREATININE 0.72 mg/dl (0.60-1.20)
--- NOTE | 2016-10-02 14:26 | DIAGNOSTIC IMAGING REPORT ---
CT SCAN OF THE ABDOMEN AND PELVIS WITH IV CONTRAST CLINICAL HISTORY: Colon cancer. COMPARISON STUDY: No priors. TECHNIQUE: Following the IV administration of 92 cc of Optiray 320, CT scan of the abdomen and pelvis is performed from the lung bases to the proximal femora. Images are reviewed in the axial, sagittal, and coronal planes. IV contrast was administered without complication. Automated dose control exposure was utilized. CT DOSE: 365.57 mGy.cm FINDINGS: Lung bases: The heart is mildly enlarged and without pericardial effusion. Emphysematous changes observed. No airspace consolidation or pleural effusion is seen. There are numerous (greater than 5) 2-3 mm pulmonary nodules at the right lung base. Liver: The contrast-enhanced liver is normal in size, contour, and attenuation. There is minimal central intrahepatic biliary ductal dilatation. The hepatic veins and portal veins are patent. Gallbladder: Surgically absent noting clips in the gallbladder fossa. Spleen: Normal in size and attenuation. A 10 mm low-attenuation/cystic lesion in the spleen seen on image #59 and is of indeterminant but of doubtful significance. Pancreas: There is moderate glandular atrophy of the pancreas which is grossly unremarkable. Adrenal glands: Unremarkable. Kidneys: The contrast enhanced kidneys are atrophic and without hydronephrosis. There are bilateral extrarenal pelvises. The kidneys enhance symmetrically. Foci of cortical scarring are noted in the interpolar right kidney. Abdominal vasculature: The abdominal aorta is normal in course and caliber noting moderate atherosclerotic calcification. Stomach and bowel: There is a moderate to large hiatal hernia with the proximally half of the stomach located in the thoracic cavity. The duodenum is normal in configuration. There are postoperative changes from sigmoid colon resection with colocolonic anastomosis. No bowel obstruction is seen. There is mild colonic fecal retention. Scattered colonic diverticula are identified. There is no CT evidence of acute diverticulitis. The appendix is not identified and reported surgically absent. Peritoneum: There is no intraperitoneal free air or abdominal ascites. Lymphadenopathy: None. Pelvic viscera: The bladder is decompressed and grossly unremarkable. The uterus is surgically absent. No adnexal lesion is seen. Skeletal structures: The skeletal structures are osteopenic. Sclerotic change is noted in the pubic symphysis. Mild lumbosacral spondylosis is observed. No lytic or blastic lesions are seen. IMPRESSION: 1. There is no evidence of metastatic disease in the abdomen or pelvis. 2. There are postoperative changes from sigmoid colon resection with colocolonic anastomosis. No bowel obstruction is seen. 3. There are several (greater than 5) 2-3 mm pulmonary nodules at the right lung base. Some of these demonstrate a groundglass configuration and these are of indeterminant but doubtful significance. 4. Cardiomegaly. 5. Moderate to large hiatal hernia. 6. Additional findings as above. Electronically signed by: David Parmar M.D. 10/02/2016 2:24 PM Dictated Date/Time: 10/02/2016 2:17 PM
== END | disposition home or self-care (01) ==
LOC: C.CTS 11:16
PROVIDERS: ATTEND Surgery
DX: C18.9 Malignant neoplasm of colon, unspecified (principal)

== ENCOUNTER 2016-10-24 08:47 | Inpatient (IN) | payer OTHER ==
[2016-10-09 10:26] VITALS: BMI 25.0
--- NOTE | 2016-10-09 11:00 | PAT Medication Instructions ---
Service Date Oct 09, 2016. Current Home Medication List Acetaminophen (Acetaminophen), 500 MG PO Q6 PRN for Pain or Fever Atorvastatin (Lipitor), 20 MG PO QAM Calcium Carbonate (Calcium), 1 TAB PO QAM Cholecalciferol (Vitamin D), 1 TAB PO QAM Cyanocobalamin (Vitamin B12 500MCG), 1,000 MCG PO QAM Lactulose (Chronulac), 15 ML PO BID PRN for Constipation Lisinopril (Zestril), 30 MG PO QAM Meclizine Hcl (Meclizine Hcl), 1 TAB PO TID PRN for N Metoprolol Succinate (Toprol Xl), 25 MG PO QAM Polyethylene (Miralax), 17 GM PO DAILY PRN for Constipation Sertraline (Zoloft), 100 MG PO QAM Warfarin Sod (Jantoven), 2 MG PO DIRECTED Medication Instructions For Your Scheduled Surgery - Check with surgeon/coumadin clinic for instructions: Warfarin Sod (Jantoven), 2 MG PO DIRECTED - Hold the following medications the morning of surgery: Polyethylene (Miralax), 17 GM PO DAILY PRN for Constipation Lisinopril (Zestril), 30 MG PO QAM Lactulose (Chronulac), 15 ML PO BID PRN for Constipation Calcium Carbonate (Calcium), 1 TAB PO QAM Cholecalciferol (Vitamin D), 1 TAB PO QAM Cyanocobalamin (Vitamin B12 500MCG), 1,000 MCG PO QAM - Take the following medications the morning of surgery with a sip of water: Sertraline (Zoloft), 100 MG PO QAM Metoprolol Succinate (Toprol Xl), 25 MG PO QAM Meclizine Hcl (Meclizine Hcl), 1 TAB PO TID PRN for N (if needed) Acetaminophen (Acetaminophen), 500 MG PO Q6 PRN for Pain or Fever (if needed) Atorvastatin (Lipitor), 20 MG PO QAM - Take the following medications as scheduled the night before surgery: Polyethylene (Miralax), 17 GM PO DAILY PRN for Constipation Meclizine Hcl (Meclizine Hcl), 1 TAB PO TID PRN for N (if needed) Acetaminophen (Acetaminophen), 500 MG PO Q6 PRN for Pain or Fever (if needed) Atorvastatin (Lipitor), 20 MG PO QAM If you have any questions please call us at [phone] or [phone] or [phone]
[2016-10-09 11:33] LABS: BASO % 0.9 %; BASO ABS # 0.07 K/uL (0-0.2); EOS % 5.7 %; HEMATOCRIT 30.7 % (37-47); IG% 0.3 %; LYMPH % 24.6 %; LYMPH ABS # 1.86 K/uL (1.2-3.4); MEAN CELL VOLUME 72.9 fL (80-100); MEAN CORPUSCULAR HEMOGLOBIN 22.1 pg (25-34); MEAN CORPUSCULAR HGB CONC 30.3 g/dl (32-36); MEAN PLATELET VOLUME 8.7 fL (7.4-10.4); MONO % 10.7 %; NEUT % 57.8 %; PLATELET COUNT 343 K/uL (130-400); RED BLOOD COUNT 4.21 M/uL (4.2-5.4); WHITE BLOOD COUNT 7.55 K/uL (4.8-10.8)
[2016-10-09 12:10] LABS: ANISOCYTOSIS PRESENT; COMPLETE YES; HYPOCHROMIA PRESENT; POLYCHROMASIA 1+
[~2016-10-24] VITALS: Ht 160 cm; Wt 70.1 kg
[2016-10-24] VITALS (10 sets, daily range): BP systolic 100–134; BP diastolic 67–97; PULSE 91–147; TEMP 36.4–37.4; O2SAT 91–100; Ht 160 cm; Wt 70.1 kg
[~2016-10-24 08:47] MED LIST changes: +ATROPINE SULFATE 0.1 MG/ML 5ML SYR IV PRN; +EpHEDrine SULFATE INJ 50 MG/ML AMP IV PRN; +FENTANYL CITRATE INJ 50 MCG/1 ML 2 ML VIAL IV PRN; +HYDROmorphone INJ 1 MG/ML SYR IV PRN; +LACTATED RINGER'S 1000ML 1,000 ML IV SCH; -METO-452 PO; -METO-478 PO; +METO1TAB31 PO; +ONDANSETRON INJ 2 MG/ML 2 ML VIAL IV PRN; -OPTIRAY 320 IV PRN; -SERT50TA PO; -TPRSR50 PO
[2016-10-24 09:19] LABS: HEMATOCRIT 31.2 % (37-47)
[2016-10-24 09:38] LABS: INR 1.1 (0.9-1.1); PARTIAL THROMBOPLASTIN RATIO 0.9; PROTHROMBIN TIME (PATIENT) 11.4 SECONDS (9.0-12.0)
[2016-10-24] MEDS ORDERED: FENTANYL CITRATE INJ 50 MCG/1 ML 2 ML VIAL ONE (11:12)
--- NOTE | 2016-10-24 11:12 | History & Physical Bridge Note ---
H&P Re-Evaluation Bridge Note: I have examined the patient, reviewed the History & Physical and in the interval since the performance of the History & Physical I have noted the following changes of clinical significance: No changes noted family x5 at bedside
[2016-10-24] MEDS ORDERED: CEFOXITIN SOD 1 GM VIAL ONE (11:53)
[2016-10-24] MEDS ORDERED: ONDANSETRON INJ 2 MG/ML 2 ML VIAL ONE ×2 (12:34→14:13)
[2016-10-24] MEDS ORDERED: LIDOCAINE HCL 2% 2 ML VIAL (20MG/ML) ONE (12:34)
[2016-10-24] MEDS ORDERED: ROCURONIUM BROMIDE 10 MG/ML 5 ML VIAL ONE (12:34)
[2016-10-24] MEDS ORDERED: PROPOFOL IV EMULSION 10 MG/ML 20 ML VIAL IV ONE (12:34)
[2016-10-24] MEDS ORDERED: PHENYLEPHRINE HCL INJ 10 MG/ML VIAL ONE (12:36)
[2016-10-24] MEDS ORDERED: EpHEDrine SULFATE INJ 50 MG/ML AMP ONE (12:36)
[2016-10-24] MEDS ORDERED: GLYCOPYRROLATE INJ 0.2 MG/ML VIAL ONE (13:26)
[2016-10-24] MEDS ORDERED: NEOSTIGMINE METHYLSULFATE 5 MG/5 ML SYR ONE (13:26)
[2016-10-24] MEDS ORDERED: ONDANSETRON INJ 2 MG/ML 2 ML VIAL IV PRN (13:45)
[2016-10-24] MEDS ORDERED: MoRPHine SULFATE 2 MG/ML CARP IV PRN (13:45)
--- NOTE | 2016-10-24 13:49 | [facility] Operative Report ---
Operative Report Operative Date Oct 24, 2016. Pre-Operative Diagnosis Hepatic Flexure Mass Post-Operative Diagnosis Same as preoperative, adhesions Procedure(s) Performed Exploratory Laparatomy, Lysis of Adhesion, Partial Omentectomy, Hepatic Flexure Resection with side to side ascending colon to transverse colon anastomosis hand sewn Surgeon Dr. Lai Piper Drug Safety Scientist Surgeon(s) Vipul Lawrence PA-C Estimated Blood Loss 75ml Findings dense abd adhesion tattooed area hepatic flexure Specimens Microbiology: 1. 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 Description of Procedure general anesthesia, diehl placed midline incision marta 5 inches long adhesions of omentum to abd found thick , partial omentectomy performed , adhesions to ruq incision from open gallbladder taken down, tattooed area identified hepatic flexure mass palpated immobilized ascending colon, small bowel prox to ileocolic valve strictly adherent pelvis(did not molest) elected to resect hep flexure from ascending colon to right of middle colic artery(concerned about blood supply since pt had previous sigmoid resection) staple line on resection oversewn with 3-0 silk, side to side anastomosis performed usin 3-0 chromic inner layer and 3-0 silk outer layer(good blood supply at anastomosis mesenteric closed with 3-0 silk. ng tube positioned in stomach, fascia closed with interrupted 1-0 pbs, 1/4 liliana sub cut, lauro skin edges, dressing applied ebl marta 75cc spec to lab I attest to the content of the Intraoperative Record and any orders documented therein. Any exceptions are noted below.
--- NOTE | 2016-10-24 14:29 | Anesthesiology Progress Note ---
Anesthesia Post Op Note Date & Time Oct 24, 2016 at 14:28 Vital Signs Pain Intensity: 2 Vital Signs Past 12 Hours Date Time Temp Pulse Resp B/P (MAP) Pulse Ox O2 Delivery O2 Flow Rate FiO2 10/24/16 14:20 36.2 88 20 106/78 100 Nasal Cannula 2 10/24/16 14:10 88 21 117/70 100 Nasal Cannula 2 10/24/16 14:00 96 22 110/70 100 Mask 10 10/24/16 13:50 129 24 117/70 98 Mask 10 10/24/16 13:44 36.0 114 14 114/97 100 Mask 10 10/24/16 09:20 36.8 147 22 134/97 99 Notes Mental Status: alert / awake / arousable, participated in evaluation Pt Amnestic to Procedure: Yes Nausea / Vomiting: adequately controlled Pain: adequately controlled Airway Patency, RR, SpO2: stable & adequate BP & HR: stable & adequate Hydration State: stable & adequate Anesthetic Complications: no major complications apparent
[2016-10-24] MEDS: LACTATED RINGER'S 1000ML 1,000 ML IV SCH ×2 (15:16→20:13)
[2016-10-24] MEDS ORDERED: METOPROLOL TARTRATE 25 MG TAB PO ONE (16:26)
--- NOTE | 2016-10-24 16:46 | Cardiology Consultation ---
Cardiology Consultation Date of Consultation: Oct 24, 2016 Requesting Physician: Dr. Piper Attending Statement Processor: Dr. Vicente Ledesma History of Present Illness Patient is a 81 year old female seen for consultation regarding atrial fibrillation. Patient had abdominal surgery, colectomy performed today for colon cancer. Currently nothing by mouth with NG tube to low intermittent suction. History of chronic atrial fibrillation on chronic oral anticoagulation with Coumadin. Heart rates averaging 100-110 bpm. Patient is still mildly sedated from her procedure. She denies chest pain or shortness of breath at rest. No abdominal discomfort, lower extremity edema, orthopnea, PND , or palpitations. Offers no complaints at this time. 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 Head: The patient denies headache and prior head trauma. Cardiovascular: The patient denies chest pain or chest discomfort, dyspnea on exertion, palpitations, PND, orthopnea, edema, spontaneous shortness of breath, syncope and near syncope. Pulmonary: The patient denies cough, wheeze, pleurisy, hemoptysis, sputum, and excessive snoring. Gastrointestinal: The patient denies nausea, vomiting, diarrhea, constipation, bloating, hematemesis, hematochezia, and abdominal pain. Skin: The patient denies diaphoresis and rash. Musculoskeletal: The patient denies joint pain, joint swelling, myalgia, back pain, neck pain and prior injuries. Neurological: The patient denies prior stroke and seizures Allergies Coded Allergies: No Known Allergies (Unverified , 10/24/16) Medications Reported Home Medications Medications Dose Route/Sig Max Daily Dose Days Date Category Toprol Xl (Metoprolol Succinate) 25 Mg Tab 25 Mg PO BID 10/12/16 Reported Vitamin B12 500MCG (Cyanocobalamin) 500 Mcg Tab 1,000 Mcg PO QAM 10/09/16 Reported Zoloft (Sertraline HCl) 100 Mg Tab 100 Mg PO QAM 10/09/16 Reported Meclizine Hcl 25 Mg Tab 1 Tab PO TID PRN 10 10/09/16 Reported Vitamin D (Cholecalciferol) 1,000 Unit Tab 1 Tab PO QAM 09/06/16 Reported Calcium (Calcium Carbonate) 600 Mg Tab 1 Tab PO QAM 09/06/16 Reported Miralax (Polyethylene) 17 Gm Pow 17 Gm PO DAILY PRN 08/24/16 Reported Chronulac (Lactulose) 10 Gm/15 Ml Syrp 15 Ml PO BID PRN 08/24/16 Reported Acetaminophen 500 Mg Tab 500 Mg PO Q6 PRN 15 08/24/16 Reported Jantoven (Warfarin Sodium) 2 Mg Tab 2 Mg PO DIRECTED 08/24/16 Reported Lipitor (Atorvastatin Calcium) 20 Mg Tab 20 Mg PO QAM 05/05/15 Reported Zestril (Lisinopril) 30 Mg Tab 30 Mg PO QAM 05/05/15 Reported Physical Exam Vital Signs (Last 8hrs): Last 8 Hrs Date Time Temp Pulse Resp B/P (MAP) Pulse Ox O2 Delivery O2 Flow Rate FiO2 10/24/16 16:14 113 16 100/67 (78) 91 Room Air 10/24/16 16:00 Room Air 10/24/16 15:44 92 16 108/77 (87) 95 Room Air 10/24/16 15:30 36.4 94 16 102/68 97 Room Air 10/24/16 15:14 94 16 102/68 (79) 97 Room Air 10/24/16 15:00 36.4 91 16 103/68 (80) 100 Nasal Cannula 2.0 10/24/16 14:40 91 20 103/61 100 Nasal Cannula 2 10/24/16 14:20 36.2 88 20 106/78 100 Nasal Cannula 2 10/24/16 14:10 88 21 117/70 100 Nasal Cannula 2 10/24/16 14:00 96 22 110/70 100 Mask 10 10/24/16 13:50 129 24 117/70 98 Mask 10 10/24/16 13:44 36.0 114 14 114/97 100 Mask 10 10/24/16 09:20 36.8 147 22 134/97 99 General Appearance: Sedated, however, arousable to verbal stimuli. NAD. Chronically ill. Frail appearing. Head: Normocephalic Atraumatic. Eyes: PERRLA, EOMI, conjunctiva and sclera clear Neck: Supple. No carotid bruits noted. No JVD. No HJD. Respiratory: Breath sounds clear to auscultation bilaterally. No w/r/r. Cardiovascular: Irregular rate and rhythm with borderline tachycardia. S1 and S2 noted. No murmurs, rubs, gallops. PMI non displace. Abdomen: Diffusely tender to palpitation without rebound or guarding. Diminished bowel sounds noted. no abdominal bruits. Extremities: No edema, no clubbing or cyanosis. distal pulses 2/4 bilaterally. Neuro: No focal deficits. Psychiatric: Normal affect. Data Last 24 Hours Test 10/24/16 09:05 Hemoglobin 9.8 g/dL Hematocrit 31.2 % Prothrombin Time 11.4 SECONDS Prothromb Time International Ratio 1.1 Activated Partial Thromboplast Time 22.2 SECONDS Partial Thromboplastin Ratio 0.9 EKG: Atrial fibrillation with rapid ventricular response Telemetry reviewed: Atrial fibrillation with heart rate ranging from 100-110 bpm Assessment & Plan Final impression: 1. 81-year-old female with recurrent colon cancer postop day 0 exploratory laparatomy, lysis of adhesion, partial omentectomy, hepatic flexure resection with side to side ascending colon to transverse colon anastomosis. 2. Chronic atrial fibrillation with borderline rate control. [id number] = 6 -Chronic outpatient anticoagulation with Coumadin 3. HTN - controlled 4. H/O embolic CVA Plan/recommendations: Patient is currently NPO with NGT in place. I will order intravenous metoprolol 2.5 mg every 6 hours to maintain rate control overnight. We'll resume anticoagulation with Coumadin when able to take oral medications as well. Bridging therapy not recommended the past due to recent significant GI bleeding and chronic anemia. Will restart her other outpatient cardiovascular medications when able. I will continue to follow closely during hospitalization. Thank you for allow me to take part in the care of this patient.
[2016-10-24] MEDS ORDERED: METOPROLOL TARTRATE 1 MG/ML VIAL IV. ONE (17:00)
[2016-10-24] MEDS: METOPROLOL TARTRATE 1 MG/ML VIAL IV. SCH ×2 (20:13→23:59)
[2016-10-24] MEDS: HEPARIN SOD 5000 UNIT/0.5 ML CARP SQ SCH (20:17)
[2016-10-24] MEDS: CEFOXITIN IV 2,000 MG in DEXTROSE 5% 50ML 50 ML IV SCH (20:39)
[2016-10-24] MEDS ORDERED: METOPROLOL SUCC 25MG EXT REL TAB PO SCH (21:00)
[2016-10-24] MEDS ORDERED: METOPROLOL TARTRATE 25 MG TAB PO SCH (23:30)
[2016-10-25] VITALS (10 sets, daily range): BP systolic 94–133; BP diastolic 60–77; PULSE 97–135; TEMP 36.7–37.3; O2SAT 92–95
[2016-10-25] MEDS: CEFOXITIN IV 2,000 MG in DEXTROSE 5% 50ML 50 ML IV SCH ×2 (03:59→11:24)
[2016-10-25] MEDS: LACTATED RINGER'S 1000ML 1,000 ML IV SCH ×3 (04:50→22:51)
[2016-10-25] MEDS: METOPROLOL TARTRATE 1 MG/ML VIAL IV. SCH (06:41)
[2016-10-25 07:12] LABS: BASO % 0.1 %; BASO ABS # 0.01 K/uL (0-0.2); HEMATOCRIT 25.8 % (37-47); IG% 0.2 %; LYMPH % 10.1 %; LYMPH ABS # 1.31 K/uL (1.2-3.4); MEAN CELL VOLUME 71.7 fL (80-100); MEAN CORPUSCULAR HEMOGLOBIN 22.8 pg (25-34); MEAN CORPUSCULAR HGB CONC 31.8 g/dl (32-36); MEAN PLATELET VOLUME 8.6 fL (7.4-10.4); MONO % 11.1 %; NEUT % 78.5 %; PLATELET COUNT 296 K/uL (130-400); WHITE BLOOD COUNT 12.93 K/uL (4.8-10.8)
--- NOTE | 2016-10-25 07:12 | Surgery Progress Note ---
Surgery Progress Note Date of Service Oct 25, 2016. Subjective Post OP Day: 1 s/p resection hepatic flexure no complaints except thirsty Objective Vital Signs: Date Time Temp Pulse Resp B/P (MAP) Pulse Ox O2 Delivery O2 Flow Rate FiO2 10/25/16 06:41 135 133/72 10/25/16 04:00 Room Air 10/25/16 03:29 36.9 135 20 133/72 (92) 94 Room Air 10/25/16 00:01 Room Air 10/24/16 23:59 142 126/81 10/24/16 23:57 37.4 142 16 126/81 (96) 93 Room Air 10/24/16 20:13 122 115/73 10/24/16 20:00 37.2 137 18 113/77 (89) 95 Room Air 10/24/16 20:00 Room Air 10/24/16 17:14 99 16 117/77 (90) 96 Room Air 10/24/16 16:59 103 110/73 10/24/16 16:14 113 16 100/67 (78) 91 Room Air 10/24/16 16:00 Room Air 10/24/16 15:44 92 16 108/77 (87) 95 Room Air 10/24/16 15:30 36.4 94 16 102/68 97 Room Air 10/24/16 15:14 94 16 102/68 (79) 97 Room Air 10/24/16 15:00 36.4 91 16 103/68 (80) 100 Nasal Cannula 2.0 10/24/16 14:40 91 20 103/61 100 Nasal Cannula 2 10/24/16 14:20 36.2 88 20 106/78 100 Nasal Cannula 2 10/24/16 14:10 88 21 117/70 100 Nasal Cannula 2 10/24/16 14:00 96 22 110/70 100 Mask 10 10/24/16 13:50 129 24 117/70 98 Mask 10 10/24/16 13:44 36.0 114 14 114/97 100 Mask 10 10/24/16 09:20 36.8 147 22 134/97 99 General Appearance: + pertinent finding (alert coherent in no distress intraop findings discussed with pt) Head: normocephalic, + pertinent finding (mouth dry) Abdomen: + pertinent finding (soft minimally distended dressing dry) Laboratory Results: Results Past 24 Hours Test 10/24/16 09:05 10/25/16 06:25 Range/Units Hemoglobin 9.8 12.0-16.0 g/dL Hematocrit 31.2 37-47 % Prothrombin Time 11.4 9.0-12.0 SECONDS Prothromb Time International Ratio 1.1 0.9-1.1 Activated Partial Thromboplast Time 22.2 21.0-31.0 SECONDS Partial Thromboplastin Ratio 0.9 Microbiology Results 10/24/16 Urine Culture, Received Pending Assessment & Plan 10/25/16 will d/c ng tube start clears ambulate lab pending keep fluid current rate transfer to reg floor when ok with cardiology will restart coumadin l
[2016-10-25] MEDS ORDERED: WARFARIN SOD 5 MG TAB PO ONE (07:15)
[2016-10-25 07:37] LABS: BUN/CREATININE RATIO 12.7 (10-20); CALCIUM 8.3 mg/dl (8.5-10.1); CREATININE 1.3 mg/dl (0.60-1.20); POTASSIUM 4.5 mmol/L (3.5-5.1)
[2016-10-25 07:44] LABS: ANISOCYTOSIS PRESENT; COMPLETE YES; HYPOCHROMIA PRESENT; MICROCYTOSIS PRESENT
[2016-10-25] MEDS: HEPARIN SOD 5000 UNIT/0.5 ML CARP SQ SCH ×2 (07:56→19:32)
--- NOTE | 2016-10-25 08:03 | Anesthesiology Progress Note ---
Anesthesia Post Op Note Date & Time Oct 25, 2016 at 08:03 Vital Signs Pain Intensity: 0.0 Vital Signs Past 12 Hours Date Time Temp Pulse Resp B/P (MAP) Pulse Ox O2 Delivery O2 Flow Rate FiO2 10/25/16 06:41 135 133/72 10/25/16 04:00 Room Air 10/25/16 03:29 36.9 135 20 133/72 (92) 94 Room Air 10/25/16 00:01 Room Air 10/24/16 23:59 142 126/81 10/24/16 23:57 37.4 142 16 126/81 (96) 93 Room Air 10/24/16 20:13 122 115/73 Notes Mental Status: alert / awake / arousable, participated in evaluation Pt Amnestic to Procedure: Yes Nausea / Vomiting: adequately controlled Pain: adequately controlled Airway Patency, RR, SpO2: stable & adequate BP & HR: stable & adequate Hydration State: stable & adequate Anesthetic Complications: no major complications apparent
--- NOTE | 2016-10-25 08:04 | Clinical Documentation Query ---
SAMI JonhsonATORE : CLINICAL DOCUMENTATION QUERY Patient is an 81 year old female who underwent exploratory laparotomy, lysis of adhesions, mass resection, ascending to transverse colon anastomosis. Preoperative H&H was 9.8 g/dl and 31.2%. Repeat values this a.m. are 8.2 g/dl and 25.8%. Red cell indices noted to demonstrate microcytosis, hypochromia. History of GI bleed. Additionally, net I/O this admission positive for 2234 ml at this time per [place]. As appropriate, consider documentation as suggested below as this impacts DRG assignments. Thank you. 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 Clinical Indicators: As above Treatment: I/O, serial hematology Risk Factors: Surgery, IVF administration Please clarify and document your clinical opinion in the progress notes and discharge summary. Terms such as "probable", "suspected", "likely", "questionable", "possible", or "still to be ruled out" are acceptable. IF IN AGREEMENT, YOU MUST DOCUMENT ABOVE DIAGNOSTIC STATEMENT IN DAILY PROGRESS NOTES AND DISCHARGE SUMMARY. This document is not part of the patient's record. Thank You, Kamran Gomez, KAREN [phone]
[2016-10-25] MEDS: ACETAMINOPHEN IV 100 ML IV PRN ×2 (08:23→19:52)
[2016-10-25] MEDS ORDERED: NURSING VERBAL MED ORDER ONE (09:15)
--- NOTE | 2016-10-25 09:34 | Cardiology Follow-Up ---
Subjective General Date of Service: Oct 25, 2016. Chief Complaint: POD 1 colon resection Pt evaluation today including: conversation w/ patient, conversation w/ family , physical exam, chart review, lab review, review of studies, review of inpatient medication list History of Present Illness Patient feeling ok. Minimal abdominal pain. No chest pain, SOB, sense of palpitations or dizziness. No cough, fever, chills. no orthopnea, PND or edema. NG tube removed this AM. Progressing to oral liquids. Ok to take oral medications. Allergies Coded Allergies: No Known Allergies (Unverified , 10/24/16) Social History Smoking Status: Never Smoker Hx Tobacco Use In Past Year?: No Hx Alcohol Use - Type And Amou: No Hx Substance Use - Type And Am: No Problem List Medical Problems: (1) Acute GI bleeding Status: Acute (2) Blood loss anemia Status: Acute Review of Systems Respiratory: No cough, No sputum, No wheezing, No shortness of breath, No dyspnea at rest, No hemoptysis Cardiac: No chest pain, No orthopnea, No PND, No edema, No palpitations Physical Exam Vital Signs Last Vital Signs Documentation Date Time Temp Pulse Resp B/P (MAP) Pulse Ox O2 Delivery O2 Flow Rate FiO2 10/25/16 08:16 36.7 132 16 113/77 (89) 94 Room Air 10/24/16 15:00 2.0 Physical Exam Constitutional: Level of Distress: NAD, chronically ill Psychiatric: Mental Status: active & alert Orientation: to time, to place, to person Head: normocephalic Eyes: Pupils: PERRLA Neck: supple Lungs: Respiratory effort: no dyspnea Auscultation: no wheezing, no rales/crackles, no rhonchi Cardiovascular: Heart Auscultation: no murmurs, no rubs, no gallops, tachycardia, irregular rate rhythm Peripheral Pulses: Dorsalis Pedis Pulse: normal on the left, normal on the right Extremities: no cyanosis, no edema Assessment and Plan Assessment and Plan Final impression: 81 year old female 1. POD 1 exploratory laparotomy, lysis of adhesion, partial omentectomy, hepatic flexure resection with side to side ascending colon to transverse colon anastomosis. 2. Post op anemia - hbg 8.2 2. Chronic atrial fibrillation with elevated ventricular rates overnight. IV lopressor, now able to take oral metoprolol. Resume [id number] = 6 -Chronic outpatient anticoagulation with Coumadin 3. HTN - controlled 4. H/O embolic CVA Plan/recommendations: NG tube removed this AM. Resume oral cardiac medications including metoprolol tartrate 25 mg BID (was on Toprol 25 mg BID at home), coumadin. INR in AM with cbc and prp. Holding lisinopril and atorvastatin for now. Case to be discussed with Dr. Ledesma. Cardiology Attending Physician: Patient seen and examined at the bedside. Family is present as well today. Patient is more alert and interactive today. Tolerating clear liquids. Heart rate elevated overnight. Oral metoprolol restarted this morning with improvement. Denies palpitations or chest discomfort. Offers no complaints at this time. PE: VSS, Gen: NAD, chronically ill. Heart: Irregular, borderline tachycardic. Lungs: Clear B/L, No R/R/W. Abd; soft, diffusely tender, no rebound or guarding. Hypoactive bowel sounds. Ext: No edema. A/P: Agree with above PAC history, physical exam, assessment and plan. Continue oral metoprolol. Coumadin restarted yesterday. Repeat PT/INR in the a.m. Will continue to follow closely during hospitalization. Vicente Ledesma DO, [facility] Laboratory Results Last 24 Hours Test 10/25/16 06:25 White Blood Count 12.93 K/uL Red Blood Count 3.60 M/uL Hemoglobin 8.2 g/dL Hematocrit 25.8 % Mean Corpuscular Volume 71.7 fL Mean Corpuscular Hemoglobin 22.8 pg Mean Corpuscular Hemoglobin Concent 31.8 g/dl Platelet Count 296 K/uL Mean Platelet Volume 8.6 fL Neutrophils (%) (Auto) 78.5 % Lymphocytes (%) (Auto) 10.1 % Monocytes (%) (Auto) 11.1 % Eosinophils (%) (Auto) 0.0 % Basophils (%) (Auto) 0.1 % Neutrophils # (Auto) 10.15 K/uL Lymphocytes # (Auto) 1.31 K/uL Monocytes # (Auto) 1.43 K/uL Eosinophils # (Auto) 0.00 K/uL Basophils # (Auto) 0.01 K/uL RDW Standard Deviation 56.1 fL RDW Coefficient of Variation 21.3 % Immature Granulocyte % (Auto) 0.2 % Immature Granulocyte # (Auto) 0.03 K/uL Hypochromasia PRESENT Anisocytosis PRESENT Microcytosis PRESENT Sodium Level 140 mmol/L Potassium Level 4.5 mmol/L Chloride Level 106 mmol/L Carbon Dioxide Level 28 mmol/L Anion Gap 6.0 mmol/L Blood Urea Nitrogen 17 mg/dl Creatinine 1.30 mg/dl Est Creatinine Clear Calc Drug Dose 30.8 ml/min Estimated GFR () 44.6 Estimated GFR (Non- 38.4 BUN/Creatinine Ratio 12.7 Random Glucose 128 mg/dl Calcium Level 8.3 mg/dl
[2016-10-25] MEDS: METOPROLOL TARTRATE 25 MG TAB PO SCH ×2 (09:50→19:31)
[2016-10-25] MEDS: PANTOprazole INJ 40 MG in SYRINGE 0 ML IV SCH (11:24)
[2016-10-25] MEDS ORDERED: METOPROLOL TARTRATE 1 MG/ML VIAL IV. SCH (12:00)
[2016-10-25 14:29] LABS: BASO % 0.1 %; BASO ABS # 0.01 K/uL (0-0.2); EOS % 0.2 %; HEMATOCRIT 24.7 % (37-47); IG% 0.2 %; LYMPH ABS # 1.65 K/uL (1.2-3.4); MEAN CELL VOLUME 71.4 fL (80-100); MEAN CORPUSCULAR HGB CONC 30.8 g/dl (32-36); MONO % 11.8 %; NEUT % 74.7 %; PLATELET COUNT 265 K/uL (130-400); RED BLOOD COUNT 3.46 M/uL (4.2-5.4); WHITE BLOOD COUNT 12.67 K/uL (4.8-10.8)
[2016-10-25 14:57] LABS: ANISOCYTOSIS PRESENT; COMPLETE YES; MICROCYTOSIS PRESENT
[2016-10-25 22:22] LABS: BASO % 0.2 %; BASO ABS # 0.02 K/uL (0-0.2); EOS % 0.3 %; HEMATOCRIT 27.7 % (37-47); IG% 0.3 %; LYMPH % 7.3 %; LYMPH ABS # 0.95 K/uL (1.2-3.4); MEAN CELL VOLUME 73.1 fL (80-100); MEAN CORPUSCULAR HEMOGLOBIN 23.2 pg (25-34); MEAN CORPUSCULAR HGB CONC 31.8 g/dl (32-36); MEAN PLATELET VOLUME 8.4 fL (7.4-10.4); MONO % 9.9 %; PLATELET COUNT 231 K/uL (130-400); RED BLOOD COUNT 3.79 M/uL (4.2-5.4); WHITE BLOOD COUNT 13.08 K/uL (4.8-10.8)
[2016-10-25 23:00] LABS: ANISOCYTOSIS PRESENT; COMPLETE YES; ECHINOCYTES 1+; HYPERSEGMENTED POLYS OCCASIONAL
[2016-10-26] VITALS (8 sets, daily range): BP systolic 112–137; BP diastolic 63–91; PULSE 84–142; TEMP 36.4–37.1; O2SAT 91–98
[2016-10-26] MEDS: LACTATED RINGER'S 1000ML 1,000 ML IV SCH (05:47)
--- NOTE | 2016-10-26 06:12 | Surgery Progress Note ---
Surgery Progress Note Date of Service Oct 26, 2016. Subjective Post OP Day: 2 no major issues tolerated clear liquid had 1 u PRBC transfused yesterday for HG below 8 likely do to rehydration and re equilibration from preop state Objective Vital Signs: Date Time Temp Pulse Resp B/P (MAP) Pulse Ox O2 Delivery O2 Flow Rate FiO2 10/26/16 04:00 Room Air 10/26/16 03:28 36.9 107 18 112/69 (83) 98 Room Air 10/26/16 00:04 Room Air 10/25/16 23:44 37.0 106 17 109/76 (87) 93 Room Air 10/25/16 20:00 Room Air 10/25/16 19:10 37.0 97 17 114/75 (88) 92 Room Air 10/25/16 18:00 37.2 116 18 118/77 93 10/25/16 17:00 37.0 126 16 114/72 95 10/25/16 16:30 37.3 113 18 114/72 94 10/25/16 16:15 37.3 113 16 109/71 94 10/25/16 16:00 Room Air 10/25/16 15:22 36.8 117 19 109/69 (82) 94 Room Air 10/25/16 12:03 36.9 112 16 94/60 (71) 93 Room Air 10/25/16 12:00 Room Air 10/25/16 08:16 36.7 132 16 113/77 (89) 94 Room Air 10/25/16 08:00 Room Air 10/25/16 06:41 135 133/72 General Appearance: WD/WN Abdomen: + pertinent finding (soft incision without drainage dry blood on dressing not changed since OR liliana sub cut) Laboratory Results: Results Past 24 Hours Test 10/25/16 06:25 10/25/16 14:15 10/25/16 22:11 10/26/16 06:00 Range/Units White Blood Count 12.93 12.67 13.08 4.8-10.8 K/uL Red Blood Count 3.60 3.46 3.79 4.2-5.4 M/uL Hemoglobin 8.2 7.6 8.8 12.0-16.0 g/dL Hematocrit 25.8 24.7 27.7 37-47 % Mean Corpuscular Volume 71.7 71.4 73.1 80-100 fL Mean Corpuscular Hemoglobin 22.8 22.0 23.2 25-34 pg Mean Corpuscular Hemoglobin Concent 31.8 30.8 31.8 32-36 g/dl Platelet Count 296 265 231 130-400 K/uL Mean Platelet Volume 8.6 8.0 8.4 7.4-10.4 fL Neutrophils (%) (Auto) 78.5 74.7 82.0 % Lymphocytes (%) (Auto) 10.1 13.0 7.3 % Monocytes (%) (Auto) 11.1 11.8 9.9 % Eosinophils (%) (Auto) 0.0 0.2 0.3 % Basophils (%) (Auto) 0.1 0.1 0.2 % Neutrophils # (Auto) 10.15 9.46 10.73 1.4-6.5 K/uL Lymphocytes # (Auto) 1.31 1.65 0.95 1.2-3.4 K/uL Monocytes # (Auto) 1.43 1.49 1.30 0.11-0.59 K/uL Eosinophils # (Auto) 0.00 0.03 0.04 0-0.5 K/uL Basophils # (Auto) 0.01 0.01 0.02 0-0.2 K/uL RDW Standard Deviation 56.1 56.6 55.0 36.4-46.3 fL RDW Coefficient of Variation 21.3 21.6 20.6 11.5-14.5 % Immature Granulocyte % (Auto) 0.2 0.2 0.3 % Immature Granulocyte # (Auto) 0.03 0.03 0.04 0.00-0.02 K/uL Hypochromasia PRESENT Anisocytosis PRESENT PRESENT PRESENT Microcytosis PRESENT PRESENT Sodium Level 140 136-145 mmol/L Potassium Level 4.5 3.5-5.1 mmol/L Chloride Level 106 98-107 mmol/L Carbon Dioxide Level 28 21-32 mmol/L Anion Gap 6.0 3-11 mmol/L Blood Urea Nitrogen 17 7-18 mg/dl Creatinine 1.30 0.60-1.20 mg/dl Est Creatinine Clear Calc Drug Dose 30.8 ml/min Estimated GFR () 44.6 Estimated GFR (Non- 38.4 BUN/Creatinine Ratio 12.7 10-20 Random Glucose 128 70-99 mg/dl Calcium Level 8.3 8.5-10.1 mg/dl Nucleated RBC Absolute Count (auto) 0.02 0-0 K/uL Nucleated Red Blood Cells % 0.2 % Hypersegmented Polys OCCASIONAL Echinocytes 1+ Assessment & Plan 10/25/16 will d/c ng tube start clears ambulate lab pending keep fluid current rate transfer to reg floor when ok with cardiology will restart coumadin l 10/26/16 lab from this am pending slow with increase diet may need another u PRBC 10/25/16 will d/c ng tube start clears ambulate lab pending keep fluid current rate transfer to reg floor when ok with cardiology will restart coumadin l
[2016-10-26] MEDS ORDERED: OXYCODONE/ACETAMINOPHEN 5-325 TAB PO PRN (06:15)
[2016-10-26 06:32] LABS: BASO % 0.2 %; BASO ABS # 0.02 K/uL (0-0.2); EOS % 0.8 %; IG% 0.3 %; LYMPH % 10.3 %; LYMPH ABS # 1.34 K/uL (1.2-3.4); MEAN CELL VOLUME 72.4 fL (80-100); MEAN CORPUSCULAR HEMOGLOBIN 23.7 pg (25-34); MEAN CORPUSCULAR HGB CONC 32.7 g/dl (32-36); MEAN PLATELET VOLUME 8.2 fL (7.4-10.4); MONO % 8.5 %; NEUT % 79.9 %; PLATELET COUNT 224 K/uL (130-400); RED BLOOD COUNT 3.59 M/uL (4.2-5.4); WHITE BLOOD COUNT 12.99 K/uL (4.8-10.8)
[2016-10-26 06:42] LABS: INR 1.5 (0.9-1.1); PROTHROMBIN TIME (PATIENT) 16.7 SECONDS (9.0-12.0)
[2016-10-26 07:05] LABS: ANISOCYTOSIS PRESENT; COMPLETE YES
[2016-10-26 07:21] LABS: BUN/CREATININE RATIO 16.9 (10-20); CALCIUM 8.4 mg/dl (8.5-10.1); CREATININE 0.75 mg/dl (0.60-1.20); POTASSIUM 4.4 mmol/L (3.5-5.1)
[2016-10-26] MEDS: METOPROLOL TARTRATE 25 MG TAB PO SCH (07:59)
--- NOTE | 2016-10-26 09:34 | Cardiology Follow-Up ---
Subjective General Date of Service: Oct 26, 2016. Chief Complaint: POD 2 colon resection History of Present Illness Patient sitting up in bed feeling fairly well. Notes generalized abdominal soreness but pain controlled. Denies chest pain or SOB. No cough, fever, chills. No orthopnea, PND or edema. No sense of palpitations or tachypalpitations. No dizziness. Allergies Coded Allergies: No Known Allergies (Unverified , 10/24/16) Social History Smoking Status: Never Smoker Hx Tobacco Use In Past Year?: No Hx Alcohol Use - Type And Amou: No Hx Substance Use - Type And Am: No Problem List Medical Problems: (1) Acute GI bleeding Status: Acute (2) Blood loss anemia Status: Acute Review of Systems Respiratory: No cough, No sputum, No wheezing, No shortness of breath, No dyspnea on exertion, No dyspnea at rest, No hemoptysis Cardiac: No chest pain, No orthopnea, No PND, No edema, No palpitations Physical Exam Vital Signs Last Vital Signs Documentation Date Time Temp Pulse Resp B/P (MAP) Pulse Ox O2 Delivery O2 Flow Rate FiO2 10/26/16 07:53 36.4 120 18 118/77 (91) 95 Room Air 10/24/16 15:00 2.0 Physical Exam Constitutional: Level of Distress: NAD, chronically ill Psychiatric: Mental Status: active & alert Orientation: to time, to place, to person Head: normocephalic Eyes: Pupils: PERRLA Neck: supple Lungs: Respiratory effort: no dyspnea Auscultation: no wheezing, no rales/crackles, no rhonchi Cardiovascular: Heart Auscultation: no murmurs, no rubs, no gallops, tachycardia, irregular rate rhythm Peripheral Pulses: Dorsalis Pedis Pulse: normal on the left, normal on the right Extremities: no cyanosis, no edema Assessment and Plan Assessment and Plan Final impression: 81 year old female 1. POD 12exploratory laparotomy, lysis of adhesion, partial omentectomy, hepatic flexure resection with side to side ascending colon to transverse colon anastomosis. 2. Post op anemia - Hbg dropped to 7.6 yesterday, received 1 unit PRBC's. Hbg improved and currently 8.5 this AM. Repeat labs pending for this afternoon. If drops < 8, would transfuse another unit. 3. Chronic atrial fibrillation with elevated ventricular rates in the post op setting, multifactorial. -Oral metoprolol tartrate 25 mg BID initiated yesterday when she was able to start liquids and PO intake. -HR's elevated this morning. Upon review of home records, she was on Toprol 25 mg BID at home. Will transition to long acting tonight. -At time of visit this AM, HR's were approx 120, but she had just received metoprolol 30 minutes prior. Asymptomatic. Will monitor. -PRN IV Lopressor today if needed. -[id number] = 6 -Chronic outpatient anticoagulation with Coumadin, Coumadin resumed yesterday at 5 mg x 1 dose. INR 1.5 today. Coumadin 3mg ordered for today. Monitor PT/INR (home dose 2mg daily) 3. HTN - controlled -lisinopril still on hold. 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 Ledesma. Will follow. Cardiology Attending Physician: Patient seen and examined at the bedside. Patient feeling well today. Elevated heart rates noted overnight. Denies chest pain or shortness of breath. Received one unit of packed red blood cells yesterday. Hemoglobin has improved. Patient offers no complaints at this time. PE: VSS, Gen: NAD, chronically ill. Heart: Irregular, borderline tachycardic. Lungs: Clear B/L, No R/R/W. Abd; soft, diffusely tender, no rebound or guarding. Hypoactive bowel sounds. Ext: No edema. A/P: Agree with above PAC history, physical exam, assessment and plan. Transition metoprolol tartrate to succinate formulation. Continue other medications as previously ordered including Coumadin for goal INR of 2.0-3.0. Repeat PT/INR in the a.m. We will continue to follow during hospitalization. Vicente Ledesma DO, [facility] Laboratory Results Last 24 Hours Test 10/25/16 14:15 10/25/16 22:11 10/26/16 06:17 White Blood Count 12.67 K/uL 13.08 K/uL 12.99 K/uL Red Blood Count 3.46 M/uL 3.79 M/uL 3.59 M/uL Hemoglobin 7.6 g/dL 8.8 g/dL 8.5 g/dL Hematocrit 24.7 % 27.7 % 26.0 % Mean Corpuscular Volume 71.4 fL 73.1 fL 72.4 fL Mean Corpuscular Hemoglobin 22.0 pg 23.2 pg 23.7 pg Mean Corpuscular Hemoglobin Concent 30.8 g/dl 31.8 g/dl 32.7 g/dl Platelet Count 265 K/uL 231 K/uL 224 K/uL Mean Platelet Volume 8.0 fL 8.4 fL 8.2 fL Neutrophils (%) (Auto) 74.7 % 82.0 % 79.9 % Lymphocytes (%) (Auto) 13.0 % 7.3 % 10.3 % Monocytes (%) (Auto) 11.8 % 9.9 % 8.5 % Eosinophils (%) (Auto) 0.2 % 0.3 % 0.8 % Basophils (%) (Auto) 0.1 % 0.2 % 0.2 % Neutrophils # (Auto) 9.46 K/uL 10.73 K/uL 10.37 K/uL Lymphocytes # (Auto) 1.65 K/uL 0.95 K/uL 1.34 K/uL Monocytes # (Auto) 1.49 K/uL 1.30 K/uL 1.11 K/uL Eosinophils # (Auto) 0.03 K/uL 0.04 K/uL 0.11 K/uL Basophils # (Auto) 0.01 K/uL 0.02 K/uL 0.02 K/uL RDW Standard Deviation 56.6 fL 55.0 fL 55.0 fL RDW Coefficient of Variation 21.6 % 20.6 % 20.6 % Immature Granulocyte % (Auto) 0.2 % 0.3 % 0.3 % Immature Granulocyte # (Auto) 0.03 K/uL 0.04 K/uL 0.04 K/uL Anisocytosis PRESENT PRESENT PRESENT Microcytosis PRESENT Nucleated RBC Absolute Count (auto) 0.02 K/uL Nucleated Red Blood Cells % 0.2 % Hypersegmented Polys OCCASIONAL Echinocytes 1+ Prothrombin Time 16.7 SECONDS Prothromb Time International Ratio 1.5 Sodium Level 138 mmol/L Potassium Level 4.4 mmol/L Chloride Level 105 mmol/L Carbon Dioxide Level 28 mmol/L Anion Gap 5.0 mmol/L Blood Urea Nitrogen 13 mg/dl Creatinine 0.75 mg/dl Est Creatinine Clear Calc Drug Dose 54.1 ml/min Estimated GFR () 86.6 Estimated GFR (Non- 74.8 BUN/Creatinine Ratio 16.9 Random Glucose 88 mg/dl Calcium Level 8.4 mg/dl
[2016-10-26] MEDS: HEPARIN SOD 5000 UNIT/0.5 ML CARP SQ SCH ×2 (10:13→19:39)
[2016-10-26] MEDS: PANTOprazole INJ 40 MG in SYRINGE 0 ML IV SCH (10:14)
[2016-10-26] MEDS ORDERED: METOPROLOL TARTRATE 1 MG/ML VIAL IV ONE (14:10)
[2016-10-26 14:45] LABS: BASO % 0.3 %; BASO ABS # 0.04 K/uL (0-0.2); EOS % 1.5 %; HEMATOCRIT 27.2 % (37-47); IG% 0.2 %; LYMPH % 11.3 %; LYMPH ABS # 1.45 K/uL (1.2-3.4); MEAN CELL VOLUME 73.7 fL (80-100); MEAN CORPUSCULAR HEMOGLOBIN 23.3 pg (25-34); MEAN CORPUSCULAR HGB CONC 31.6 g/dl (32-36); MEAN PLATELET VOLUME 8.9 fL (7.4-10.4); MONO % 8.3 %; NEUT % 78.4 %; PLATELET COUNT 256 K/uL (130-400); RED BLOOD COUNT 3.69 M/uL (4.2-5.4); WHITE BLOOD COUNT 12.84 K/uL (4.8-10.8)
[2016-10-26 15:13] LABS: ANISOCYTOSIS PRESENT; COMPLETE YES
[2016-10-26] MEDS ORDERED: WARFARIN SOD 3 MG TAB PO ONE (16:00)
[2016-10-26] MEDS: METOPROLOL SUCC 25MG EXT REL TAB PO SCH (19:37)
[2016-10-26 22:38] LABS: BASO % 0.2 %; BASO ABS # 0.03 K/uL (0-0.2); EOS % 2.1 %; HEMATOCRIT 27.2 % (37-47); IG% 0.4 %; LYMPH % 11.4 %; LYMPH ABS # 1.49 K/uL (1.2-3.4); MEAN CELL VOLUME 72.7 fL (80-100); MEAN CORPUSCULAR HEMOGLOBIN 23.3 pg (25-34); MEAN PLATELET VOLUME 8.4 fL (7.4-10.4); MONO % 7.8 %; NEUT % 78.1 %; PLATELET COUNT 262 K/uL (130-400); RED BLOOD COUNT 3.74 M/uL (4.2-5.4); WHITE BLOOD COUNT 13.12 K/uL (4.8-10.8)
[2016-10-26 23:43] LABS: ANISOCYTOSIS PRESENT; COMPLETE YES; POIKILOCYTOSIS PRESENT; POLYCHROMASIA 1+; TEAR DROP CELLS 1+
[2016-10-27] MEDS: LACTATED RINGER'S 1000ML 1,000 ML IV SCH ×2 (00:52→20:34)
[2016-10-27 04:03] VITALS: BP 120/75; PULSE 107; TEMP 37.2; O2SAT 93
--- NOTE | 2016-10-27 06:02 | Surgery Progress Note ---
Surgery Progress Note Date of Service Oct 27, 2016. Subjective Post OP Day: 3 comfortable no complaints no flatus or bm yet Objective Vital Signs: Date Time Temp Pulse Resp B/P (MAP) Pulse Ox O2 Delivery O2 Flow Rate FiO2 10/27/16 04:03 37.2 107 22 120/75 (90) 93 Room Air 10/26/16 23:59 37.1 116 20 118/74 (89) 92 Room Air 10/26/16 19:34 37.0 142 22 137/91 (106) 94 Room Air 10/26/16 18:33 118 10/26/16 16:32 Room Air 10/26/16 15:34 37.1 115 22 115/74 (88) 91 Room Air 10/26/16 14:34 134 10/26/16 12:38 36.9 84 20 121/63 (82) 96 10/26/16 12:00 Room Air 10/26/16 10:24 116 113/75 (88) 116/68 (84) 10/26/16 08:00 Room Air 10/26/16 07:53 36.4 120 18 118/77 (91) 95 Room Air Abdomen: + pertinent finding (softly distended no loc tenderness dressing dry) Laboratory Results: Results Past 24 Hours Test 10/26/16 06:17 10/26/16 14:18 10/26/16 22:29 10/27/16 04:44 Range/Units White Blood Count 12.99 12.84 13.12 4.8-10.8 K/uL Red Blood Count 3.59 3.69 3.74 4.2-5.4 M/uL Hemoglobin 8.5 8.6 8.7 12.0-16.0 g/dL Hematocrit 26.0 27.2 27.2 37-47 % Mean Corpuscular Volume 72.4 73.7 72.7 80-100 fL Mean Corpuscular Hemoglobin 23.7 23.3 23.3 25-34 pg Mean Corpuscular Hemoglobin Concent 32.7 31.6 32.0 32-36 g/dl Platelet Count 224 256 262 130-400 K/uL Mean Platelet Volume 8.2 8.9 8.4 7.4-10.4 fL Neutrophils (%) (Auto) 79.9 78.4 78.1 % Lymphocytes (%) (Auto) 10.3 11.3 11.4 % Monocytes (%) (Auto) 8.5 8.3 7.8 % Eosinophils (%) (Auto) 0.8 1.5 2.1 % Basophils (%) (Auto) 0.2 0.3 0.2 % Neutrophils # (Auto) 10.37 10.07 10.26 1.4-6.5 K/uL Lymphocytes # (Auto) 1.34 1.45 1.49 1.2-3.4 K/uL Monocytes # (Auto) 1.11 1.06 1.02 0.11-0.59 K/uL Eosinophils # (Auto) 0.11 0.19 0.27 0-0.5 K/uL Basophils # (Auto) 0.02 0.04 0.03 0-0.2 K/uL RDW Standard Deviation 55.0 56.6 54.5 36.4-46.3 fL RDW Coefficient of Variation 20.6 20.7 20.7 11.5-14.5 % Immature Granulocyte % (Auto) 0.3 0.2 0.4 % Immature Granulocyte # (Auto) 0.04 0.03 0.05 0.00-0.02 K/uL Anisocytosis PRESENT PRESENT PRESENT Prothrombin Time 16.7 9.0-12.0 SECONDS Prothromb Time International Ratio 1.5 0.9-1.1 Sodium Level 138 136-145 mmol/L Potassium Level 4.4 3.5-5.1 mmol/L Chloride Level 105 98-107 mmol/L Carbon Dioxide Level 28 21-32 mmol/L Anion Gap 5.0 3-11 mmol/L Blood Urea Nitrogen 13 7-18 mg/dl Creatinine 0.75 0.60-1.20 mg/dl Est Creatinine Clear Calc Drug Dose 54.1 ml/min Estimated GFR () 86.6 Estimated GFR (Non- 74.8 BUN/Creatinine Ratio 16.9 10-20 Random Glucose 88 70-99 mg/dl Calcium Level 8.4 8.5-10.1 mg/dl Nucleated RBC Absolute Count (auto) 0.04 0-0 K/uL Nucleated Red Blood Cells % 0.3 % Polychromasia 1+ Poikilocytosis PRESENT Tear Drop Cells 1+ Assessment & Plan 10/26/16 lab from this am pending slow with increase diet may need another u PRBC 10/25/16 will d/c ng tube start clears ambulate lab pending keep fluid current rate transfer to reg floor when ok with cardiology will restart coumadin l 10/27/16 making good slow progress lab pending this am coumadin being titrated transfer to reg floor when ok with cardiology path pending sub cut drain out later today Dr Wilson covering weekend 10/26/16 lab from this am pending slow with increase diet may need another u PRBC 10/25/16 will d/c ng tube start clears ambulate lab pending keep fluid current rate transfer to reg floor when ok with cardiology will restart coumadin l
[2016-10-27 06:59] VITALS: BP 121/81; PULSE 120; TEMP 37.2; O2SAT 94
[2016-10-27 07:15] LABS: BASO % 0.3 %; BASO ABS # 0.03 K/uL (0-0.2); EOS % 3.4 %; HEMATOCRIT 27.8 % (37-47); IG% 0.4 %; LYMPH % 15.4 %; LYMPH ABS # 1.75 K/uL (1.2-3.4); MEAN CELL VOLUME 74.7 fL (80-100); MEAN CORPUSCULAR HEMOGLOBIN 23.1 pg (25-34); MEAN CORPUSCULAR HGB CONC 30.9 g/dl (32-36); MEAN PLATELET VOLUME 8.8 fL (7.4-10.4); MONO % 8.7 %; NEUT % 71.8 %; PLATELET COUNT 263 K/uL (130-400); RED BLOOD COUNT 3.72 M/uL (4.2-5.4); WHITE BLOOD COUNT 11.34 K/uL (4.8-10.8)
[2016-10-27 07:24] LABS: INR 2.1 (0.9-1.1); PROTHROMBIN TIME (PATIENT) 23.3 SECONDS (9.0-12.0)
[2016-10-27 07:47] LABS: ANISOCYTOSIS PRESENT; COMPLETE YES; POLYCHROMASIA 1+
[2016-10-27 07:49] LABS: BUN/CREATININE RATIO 14.6 (10-20); CALCIUM 8.4 mg/dl (8.5-10.1); CREATININE 0.66 mg/dl (0.60-1.20); POTASSIUM 4.3 mmol/L (3.5-5.1)
[2016-10-27] MEDS: METOPROLOL SUCC 25MG EXT REL TAB PO SCH ×2 (07:53→20:35)
[2016-10-27] MEDS: HEPARIN SOD 5000 UNIT/0.5 ML CARP SQ SCH ×2 (07:57→20:39)
[2016-10-27] MEDS ORDERED: METOPROLOL SUCC 25MG EXT REL TAB PO ONE (10:52)
--- NOTE | 2016-10-27 11:07 | Cardiology Follow-Up ---
Subjective General Date of Service: Oct 27, 2016. Chief Complaint: POD 2 colon resection Pt evaluation today including: conversation w/ patient, physical exam, chart review, lab review, review of studies, review of inpatient medication list History of Present Illness Patient feeling fairly well this AM. Denies acute complaints. No chest pain or SOB. No fever, cough, chills. HR's remain slightly elevated. She is asymptomatic. No orthopnea, PND or edema. Allergies Coded Allergies: No Known Allergies (Unverified , 10/24/16) Social History Smoking Status: Never Smoker Hx Tobacco Use In Past Year?: No Hx Alcohol Use - Type And Amou: No Hx Substance Use - Type And Am: No Problem List Medical Problems: (1) Acute GI bleeding Status: Acute (2) Blood loss anemia Status: Acute Review of Systems Respiratory: No cough, No sputum, No wheezing, No shortness of breath, No dyspnea at rest, No hemoptysis Cardiac: No chest pain, No orthopnea, No PND, No edema, No palpitations Physical Exam Vital Signs Last Vital Signs Documentation Date Time Temp Pulse Resp B/P (MAP) Pulse Ox O2 Delivery O2 Flow Rate FiO2 10/27/16 06:59 37.2 120 17 121/81 (94) 94 Room Air 10/24/16 15:00 2.0 Physical Exam Constitutional: Level of Distress: NAD, chronically ill Psychiatric: Mental Status: active & alert Orientation: to time, to place, to person Head: normocephalic Eyes: Pupils: PERRLA Neck: supple Lungs: Respiratory effort: no dyspnea Auscultation: no wheezing, no rales/crackles, no rhonchi Cardiovascular: Heart Auscultation: no murmurs, no rubs, no gallops, tachycardia, irregular rate rhythm Peripheral Pulses: Dorsalis Pedis Pulse: normal on the left, normal on the right Extremities: no cyanosis, no edema Assessment and Plan Assessment and Plan Final impression: 81 year old female 1. POD 3 exploratory laparotomy, lysis of adhesion, partial omentectomy, hepatic flexure resection with side to side ascending colon to transverse colon anastomosis. 2. Post op anemia - Stable. -received 1 unit PRBC's on POD1 3. Chronic atrial fibrillation with elevated ventricular rates in the post op setting, multifactorial. -Home dose of Toprol xl 25 mg BID initiated. HR still elevated. -Increase toprol to 50 mg in AM and 25 mg in PM today. -PRN IV Lopressor today if needed. -[id number] = 6 -Chronic outpatient anticoagulation with Coumadin, Coumadin resumed yesterday at 5 mg x 1 dose. INR 2.1 today. Will resume home dose of coumadin at 2mg daily. Monitor PT/INR daily 3. HTN - controlled -lisinopril still on hold. 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 Ledesma. Will follow. Cardiology Attending Physician: Patient seen and examined at the bedside. Patient feeling well today. Daughter present at baseline. Intermittent elevated heart rates recorded. Patient notes mild abdominal discomfort. She is not passing gas or moving her bowels. Denies chest pain or shortness of breath. PE: VSS, Gen: NAD, chronically ill. Heart: Irregular, borderline tachycardic. Lungs: Clear B/L, No R/R/W. Abd; soft, diffusely tender, no rebound or guarding. Hypoactive bowel sounds. Ext: No edema. A/P: Agree with above PA-C history, physical exam, assessment and plan. Increase Toprol-XL to 50 mg in the a.m., 25 mg in the evening. She will receive an additional 25 mg 1 now. Continue telemetry monitoring. Repeat PT/ INR in the a.m. Vicente Ledesma DO [facility] Laboratory Results Last 24 Hours Test 10/26/16 14:18 10/26/16 22:29 10/27/16 06:42 White Blood Count 12.84 K/uL 13.12 K/uL 11.34 K/uL Red Blood Count 3.69 M/uL 3.74 M/uL 3.72 M/uL Hemoglobin 8.6 g/dL 8.7 g/dL 8.6 g/dL Hematocrit 27.2 % 27.2 % 27.8 % Mean Corpuscular Volume 73.7 fL 72.7 fL 74.7 fL Mean Corpuscular Hemoglobin 23.3 pg 23.3 pg 23.1 pg Mean Corpuscular Hemoglobin Concent 31.6 g/dl 32.0 g/dl 30.9 g/dl Platelet Count 256 K/uL 262 K/uL 263 K/uL Mean Platelet Volume 8.9 fL 8.4 fL 8.8 fL Neutrophils (%) (Auto) 78.4 % 78.1 % 71.8 % Lymphocytes (%) (Auto) 11.3 % 11.4 % 15.4 % Monocytes (%) (Auto) 8.3 % 7.8 % 8.7 % Eosinophils (%) (Auto) 1.5 % 2.1 % 3.4 % Basophils (%) (Auto) 0.3 % 0.2 % 0.3 % Neutrophils # (Auto) 10.07 K/uL 10.26 K/uL 8.15 K/uL Lymphocytes # (Auto) 1.45 K/uL 1.49 K/uL 1.75 K/uL Monocytes # (Auto) 1.06 K/uL 1.02 K/uL 0.99 K/uL Eosinophils # (Auto) 0.19 K/uL 0.27 K/uL 0.38 K/uL Basophils # (Auto) 0.04 K/uL 0.03 K/uL 0.03 K/uL RDW Standard Deviation 56.6 fL 54.5 fL 57.6 fL RDW Coefficient of Variation 20.7 % 20.7 % 21.0 % Immature Granulocyte % (Auto) 0.2 % 0.4 % 0.4 % Immature Granulocyte # (Auto) 0.03 K/uL 0.05 K/uL 0.04 K/uL Anisocytosis PRESENT PRESENT PRESENT Nucleated RBC Absolute Count (auto) 0.04 K/uL Nucleated Red Blood Cells % 0.3 % Polychromasia 1+ 1+ Poikilocytosis PRESENT Tear Drop Cells 1+ Prothrombin Time 23.3 SECONDS Prothromb Time International Ratio 2.1 Sodium Level 139 mmol/L Potassium Level 4.3 mmol/L Chloride Level 105 mmol/L Carbon Dioxide Level 28 mmol/L Anion Gap 6.0 mmol/L Blood Urea Nitrogen 10 mg/dl Creatinine 0.66 mg/dl Est Creatinine Clear Calc Drug Dose 61.8 ml/min Estimated GFR () 96.0 Estimated GFR (Non- 82.8 BUN/Creatinine Ratio 14.6 Random Glucose 90 mg/dl Calcium Level 8.4 mg/dl
[2016-10-27] MEDS: PANTOprazole INJ 40 MG in SYRINGE 0 ML IV SCH (11:40)
[2016-10-27] MEDS: ACETAMINOPHEN IV 100 ML IV PRN (11:55)
[2016-10-27 11:58] VITALS: BP 124/82; PULSE 121; TEMP 36.5; O2SAT 93
[2016-10-27 15:35] VITALS: BP 113/77; PULSE 106; TEMP 36.8; O2SAT 97
[2016-10-27] MEDS: WARFARIN SOD 2 MG TAB PO SCH (17:00)
[2016-10-27 20:15] VITALS: BP 120/80; PULSE 110; TEMP 36.8; O2SAT 96
[2016-10-27 23:48] VITALS: BP 116/78; PULSE 93; TEMP 37; O2SAT 99
[2016-10-28] VITALS (7 sets, daily range): BP systolic 116–130; BP diastolic 75–86; PULSE 107–122; TEMP 36.9–37.3; O2SAT 94–97
[2016-10-28] MEDS: METOPROLOL SUCC 50MG EXT REL TAB PO SCH (08:12)
[2016-10-28 08:51] LABS: HEMATOCRIT 29.6 % (37-47); MEAN CELL VOLUME 73.4 fL (80-100); MEAN CORPUSCULAR HEMOGLOBIN 22.6 pg (25-34); MEAN CORPUSCULAR HGB CONC 30.7 g/dl (32-36); MEAN PLATELET VOLUME 8.4 fL (7.4-10.4); PLATELET COUNT 304 K/uL (130-400); RED BLOOD COUNT 4.03 M/uL (4.2-5.4); WHITE BLOOD COUNT 9.52 K/uL (4.8-10.8)
[2016-10-28] MEDS: HEPARIN SOD 5000 UNIT/0.5 ML CARP SQ SCH ×2 (09:00→20:05)
[2016-10-28 09:03] LABS: PROTHROMBIN TIME (PATIENT) 42.8 SECONDS (9.0-12.0)
[2016-10-28 09:06] LABS: INR 3.8 (0.9-1.1)
[2016-10-28 09:10] LABS: BUN/CREATININE RATIO 12.1 (10-20); CALCIUM 8.4 mg/dl (8.5-10.1); CREATININE 0.81 mg/dl (0.60-1.20); MAGNESIUM 1.5 mg/dl (1.8-2.4)
--- NOTE | 2016-10-28 09:14 | Surgery Progress Note ---
Surgery Progress Note Date of Service Oct 28, 2016. Subjective Post OP Day: 4 + feeling well pt had small bm last night. somewhat hungry. giles liquids. no new complaints. Objective Vital Signs: Date Time Temp Pulse Resp B/P (MAP) Pulse Ox O2 Delivery O2 Flow Rate FiO2 10/28/16 07:22 37.3 112 18 123/83 (96) 97 Room Air 10/28/16 04:18 37.3 122 22 121/77 (92) 95 Room Air 10/28/16 04:00 Room Air 10/28/16 00:00 Room Air 10/27/16 23:48 37.0 93 22 116/78 (91) 99 Room Air 10/27/16 20:15 36.8 110 18 120/80 (93) 96 Room Air 10/27/16 20:00 Room Air 10/27/16 15:35 36.8 106 18 113/77 (89) 97 Room Air 10/27/16 11:58 36.5 121 16 124/82 (96) 93 Room Air General Appearance: no apparent distress Abdomen: non distended, soft Incision(s): clean, dry, intact Laboratory Results: Results Past 24 Hours Test 10/28/16 08:39 Range/Units White Blood Count 9.52 4.8-10.8 K/uL Red Blood Count 4.03 4.2-5.4 M/uL Hemoglobin 9.1 12.0-16.0 g/dL Hematocrit 29.6 37-47 % Mean Corpuscular Volume 73.4 80-100 fL Mean Corpuscular Hemoglobin 22.6 25-34 pg Mean Corpuscular Hemoglobin Concent 30.7 32-36 g/dl RDW Standard Deviation 56.6 36.4-46.3 fL RDW Coefficient of Variation 20.9 11.5-14.5 % Platelet Count 304 130-400 K/uL Mean Platelet Volume 8.4 7.4-10.4 fL Nucleated RBC Absolute Count (auto) 0.04 0-0 K/uL Nucleated Red Blood Cells % 0.4 % Prothrombin Time 42.8 9.0-12.0 SECONDS Prothromb Time International Ratio 3.8 0.9-1.1 Sodium Level 137 136-145 mmol/L Potassium Level 4.0 3.5-5.1 mmol/L Chloride Level 103 98-107 mmol/L Carbon Dioxide Level 29 21-32 mmol/L Anion Gap 5.0 3-11 mmol/L Blood Urea Nitrogen 10 7-18 mg/dl Creatinine 0.81 0.60-1.20 mg/dl Est Creatinine Clear Calc Drug Dose 50.8 ml/min Estimated GFR () 78.9 Estimated GFR (Non- 68.1 BUN/Creatinine Ratio 12.1 10-20 Random Glucose 122 70-99 mg/dl Calcium Level 8.4 8.5-10.1 mg/dl Magnesium Level 1.5 1.8-2.4 mg/dl Assessment & Plan doing well pod 4 will slowly advance diet pt/ot path pending. pain controlled. d/c planning possibly sunday
[2016-10-28] MEDS: WARFARIN SOD 2 MG TAB PO SCH (16:00)
[2016-10-28] MEDS: PANTOprazole INJ 40 MG in SYRINGE 0 ML IV SCH (16:00)
[2016-10-28] MEDS: LACTATED RINGER'S 1000ML 1,000 ML IV SCH (18:21)
[2016-10-28] MEDS: METOPROLOL SUCC 25MG EXT REL TAB PO SCH (20:06)
[2016-10-29] VITALS (7 sets, daily range): BP systolic 113–139; BP diastolic 72–88; PULSE 96–121; TEMP 36.6–37.2; O2SAT 94–99
[2016-10-29 06:46] LABS: MEAN CELL VOLUME 74.4 fL (80-100); MEAN CORPUSCULAR HEMOGLOBIN 23.1 pg (25-34); MEAN CORPUSCULAR HGB CONC 31.1 g/dl (32-36); MEAN PLATELET VOLUME 8.8 fL (7.4-10.4); PLATELET COUNT 267 K/uL (130-400); RED BLOOD COUNT 3.63 M/uL (4.2-5.4); WHITE BLOOD COUNT 9.43 K/uL (4.8-10.8)
[2016-10-29 06:57] LABS: PROTHROMBIN TIME (PATIENT) 42.8 SECONDS (9.0-12.0)
[2016-10-29 07:18] LABS: CALCIUM 8.3 mg/dl (8.5-10.1); CREATININE 0.62 mg/dl (0.60-1.20); POTASSIUM 3.7 mmol/L (3.5-5.1)
[2016-10-29 07:27] LABS: INR 3.8 (0.9-1.1)
[2016-10-29] MEDS: METOPROLOL SUCC 50MG EXT REL TAB PO SCH ×2 (07:38→16:50)
[2016-10-29] MEDS: HEPARIN SOD 5000 UNIT/0.5 ML CARP SQ SCH (07:38)
--- NOTE | 2016-10-29 10:52 | Surgery Progress Note ---
Surgery Progress Note Date of Service Oct 29, 2016. Subjective pt doing well... no new issues. giles diet. Objective Vital Signs: Date Time Temp Pulse Resp B/P (MAP) Pulse Ox O2 Delivery O2 Flow Rate FiO2 10/29/16 08:00 Room Air 10/29/16 07:39 37.0 119 18 132/85 (101) 94 Room Air 10/29/16 04:00 36.6 121 20 127/88 (101) 96 Room Air 10/29/16 04:00 95 Room Air 10/29/16 00:00 95 Room Air 10/28/16 23:50 37.2 107 16 130/86 (101) 94 Room Air 10/28/16 20:00 95 Room Air 2.0 10/28/16 19:32 37.3 112 20 116/75 (89) 95 Room Air 10/28/16 15:52 37.0 115 18 120/82 (95) 95 Room Air 10/28/16 11:19 36.9 107 18 124/84 (97) 96 Room Air General Appearance: no apparent distress Abdomen: non distended, soft Incision(s): clean, dry, intact Laboratory Results: Results Past 24 Hours Test 10/29/16 05:55 Range/Units White Blood Count 9.43 4.8-10.8 K/uL Red Blood Count 3.63 4.2-5.4 M/uL Hemoglobin 8.4 12.0-16.0 g/dL Hematocrit 27.0 37-47 % Mean Corpuscular Volume 74.4 80-100 fL Mean Corpuscular Hemoglobin 23.1 25-34 pg Mean Corpuscular Hemoglobin Concent 31.1 32-36 g/dl RDW Standard Deviation 57.2 36.4-46.3 fL RDW Coefficient of Variation 20.8 11.5-14.5 % Platelet Count 267 130-400 K/uL Mean Platelet Volume 8.8 7.4-10.4 fL Nucleated RBC Absolute Count (auto) 0.04 0-0 K/uL Nucleated Red Blood Cells % 0.4 % Prothrombin Time 42.8 9.0-12.0 SECONDS Prothromb Time International Ratio 3.8 0.9-1.1 Sodium Level 137 136-145 mmol/L Potassium Level 3.7 3.5-5.1 mmol/L Chloride Level 103 98-107 mmol/L Carbon Dioxide Level 28 21-32 mmol/L Anion Gap 6.0 3-11 mmol/L Blood Urea Nitrogen 9 7-18 mg/dl Creatinine 0.62 0.60-1.20 mg/dl Est Creatinine Clear Calc Drug Dose 67.8 ml/min Estimated GFR () 98.0 Estimated GFR (Non- 84.6 BUN/Creatinine Ratio 14.0 10-20 Random Glucose 97 70-99 mg/dl Calcium Level 8.3 8.5-10.1 mg/dl Assessment & Plan 10/29/16 pt doing well awaiting PT eval giles diet likely d/c tomorrow 10/28/16 doing well pod 4 will slowly advance diet pt/ot path pending. pain controlled. d/c planning possibly sunday doing well pod 4 will slowly advance diet pt/ot path pending. pain controlled. d/c planning possibly sunday
[2016-10-29] MEDS: LACTATED RINGER'S 1000ML 1,000 ML IV SCH (11:24)
[2016-10-29] MEDS: WARFARIN SOD 2 MG TAB PO SCH (11:24)
[2016-10-29] MEDS: PANTOprazole INJ 40 MG in SYRINGE 0 ML IV SCH (11:24)
--- NOTE | 2016-10-29 11:51 | CARDIOLOGY PROGRESS NOTE ---
DATE: 10/29/2016 DATE: 10/29/2016. The patient seen and examined. Chart, medications, telemetry reviewed. SUBJECTIVE: The patient is recovering from abdominal surgery well but heart rates continue to trend higher than usual baseline. She notes no dizziness or lightheadedness, is unaware of any tachypalpitations. Does feel her heart rate and appears unsettled when standing. Notes no melena, hematochezia, dysuria or hematuria. Has resumed appetite and oral intake. OBJECTIVE: VITAL SIGNS: Heart rate is 110-120, blood pressure is 132/85. The patient is afebrile. O2 saturations 94% on room air. HEAD, EYES, EARS, NOSE, AND THROAT: Normocephalic, atraumatic. NECK: There is no jugular venous distention. LUNGS: Clear to auscultation. CARDIOVASCULAR EXAMINATION: Irregularly irregular. There is no S3 gallop. ABDOMEN: Soft with minimal distention. EXTREMITIES: Without cyanosis or clubbing. There is no peripheral edema. There are intact distal pulses. No cord or Homans sign. LABORATORY DATA: Sodium is 137, potassium is 3.7, chloride is 103, bicarbonate 28, BUN 9, creatinine is 0.62. INR is 3.8. Hemoglobin is 8.4, stable. IMPRESSION: An 81-year-old female recovering from abdominal surgery, underlying history of chronic atrial fibrillation though with heart rates running elevated postoperatively, likely being driven by stressors of surgery and hospitalization. PLAN: Will be to increase Toprol-XL to 50 mg twice per day. Follow heart rates in the hospital. The patient has resumed anticoagulation through [facility] this morning. No signs or symptoms of bleeding or acute infection. Respiratory status is stable. We will follow as clinical course progresses. Overall, the patient continuing to make improvement.
[2016-10-30] VITALS (8 sets, daily range): BP systolic 118–129; BP diastolic 78–83; PULSE 104–118; TEMP 36.7–37.3; O2SAT 94–100
[2016-10-30] MEDS: LACTATED RINGER'S 1000ML 1,000 ML IV SCH (06:55)
--- NOTE | 2016-10-30 07:51 | Surgery Progress Note ---
Surgery Progress Note Date of Service Oct 30, 2016. Subjective 6th post op day s/p limited resection hepatic flexure polypoid lesion family at bedside alert coherent eating breakfast bowel function returned path pending INR suprarx pending today Objective Vital Signs: Date Time Temp Pulse Resp B/P (MAP) Pulse Ox O2 Delivery O2 Flow Rate FiO2 10/30/16 07:29 36.8 110 20 122/78 (93) 94 Room Air 10/30/16 04:05 Room Air 10/30/16 03:05 37.2 114 18 129/79 (96) 96 Room Air 10/30/16 00:05 Room Air 10/29/16 23:15 37.0 113 18 139/87 (104) 97 Room Air 10/29/16 20:22 37.1 118 18 114/77 (89) 94 Room Air 10/29/16 20:10 Room Air 10/29/16 16:00 Room Air 10/29/16 15:34 37.2 116 18 121/78 (92) 96 Room Air 10/29/16 12:00 Room Air 10/29/16 11:43 36.7 100 18 120/83 (95) 95 10/29/16 08:00 Room Air Abdomen: + pertinent finding (soft not distended incision clean lauro intact) Laboratory Results: Results Past 24 Hours Test 10/30/16 07:21 10/30/16 07:23 Range/Units Assessment & Plan 10/30/16 await placement and ok to d/c per cardiology approval 10/27/16 making good slow progress lab pending this am coumadin being titrated transfer to reg floor when ok with cardiology path pending sub cut drain out later today Dr Wilson covering weekend 10/26/16 lab from this am pending slow with increase diet may need another u PRBC 10/25/16 will d/c ng tube start clears ambulate lab pending keep fluid current rate transfer to reg floor when ok with cardiology will restart coumadin l 10/27/16 making good slow progress lab pending this am coumadin being titrated transfer to reg floor when ok with cardiology path pending sub cut drain out later today Dr Wilson covering weekend 10/26/16 lab from this am pending slow with increase diet may need another u PRBC 10/25/16 will d/c ng tube start clears ambulate lab pending keep fluid current rate transfer to reg floor when ok with cardiology will restart coumadin l
[2016-10-30 08:00] LABS: BASO % 0.3 %; BASO ABS # 0.03 K/uL (0-0.2); EOS % 3.1 %; HEMATOCRIT 28.6 % (37-47); IG% 0.4 %; LYMPH % 11.5 %; LYMPH ABS # 1.22 K/uL (1.2-3.4); MEAN CELL VOLUME 74.7 fL (80-100); MEAN CORPUSCULAR HGB CONC 30.8 g/dl (32-36); MEAN PLATELET VOLUME 8.5 fL (7.4-10.4); MONO % 10.7 %; PLATELET COUNT 277 K/uL (130-400); RED BLOOD COUNT 3.83 M/uL (4.2-5.4); WHITE BLOOD COUNT 10.59 K/uL (4.8-10.8)
[2016-10-30 08:09] LABS: INR 2.4 (0.9-1.1); PROTHROMBIN TIME (PATIENT) 26.5 SECONDS (9.0-12.0)
[2016-10-30] MEDS: METOPROLOL SUCC 50MG EXT REL TAB PO SCH ×2 (08:09→16:55)
[2016-10-30 08:30] LABS: ANISOCYTOSIS PRESENT; COMPLETE YES; POIKILOCYTOSIS PRESENT; POLYCHROMASIA 1+
[2016-10-30 08:32] LABS: BUN/CREATININE RATIO 12.1 (10-20); CALCIUM 8.3 mg/dl (8.5-10.1); CREATININE 0.63 mg/dl (0.60-1.20); POTASSIUM 3.8 mmol/L (3.5-5.1)
[2016-10-30 08:35] LABS: ALB/GLOB RATIO 0.6 (0.9-2); MAGNESIUM 1.5 mg/dl (1.8-2.4)
--- NOTE | 2016-10-30 09:48 | Cardiology Follow-Up ---
Subjective General Date of Service: Oct 30, 2016. Chief Complaint: Chronic atrial fibrillation, elevated heart rates Pt evaluation today including: conversation w/ patient, conversation w/ family , physical exam, chart review, lab review, review of studies, review of inpatient medication list History of Present Illness The patient seen and examined. Family at bedside. No complaints. Denies chest pain, palpitations, cough, dyspnea, orthopnea, PND, edema, lightheadedness, or dizziness. Bowels moved yesterday, not yet today. No dysuria. Telemetry: Atrial fibrillation ~100-110 bpm. No periods of sinus. No bradyarrhythmias or pauses. Allergies Coded Allergies: No Known Allergies (Unverified , 10/24/16) Social History Smoking Status: Never Smoker Hx Tobacco Use In Past Year?: No Hx Alcohol Use - Type And Amou: No Hx Substance Use - Type And Am: No Problem List Medical Problems: (1) Acute GI bleeding Status: Acute (2) Blood loss anemia Status: Acute Physical Exam Vital Signs Last Vital Signs Documentation Date Time Temp Pulse Resp B/P (MAP) Pulse Ox O2 Delivery O2 Flow Rate FiO2 10/30/16 08:00 Room Air 10/30/16 07:29 36.8 110 20 122/78 (93) 94 10/28/16 20:00 2.0 Physical Exam Constitutional: Level of Distress: NAD, chronically ill Psychiatric: Mental Status: active & alert Orientation: to time, to place, to person Head: normocephalic Eyes: Pupils: PERRLA Neck: supple Lungs: Respiratory effort: no dyspnea Auscultation: no wheezing, no rales/crackles, no rhonchi Cardiovascular: Heart Auscultation: no murmurs, no rubs, no gallops, tachycardia, irregular rate rhythm Peripheral Pulses: Dorsalis Pedis Pulse: normal on the left, normal on the right Abdomen: Bowel Sounds: normal Extremities: no cyanosis, no edema, no clubbing Neurologic: Cranial Nerves: grossly intact Assessment and Plan Assessment and Plan Status post October 24, 2016 exploratory laparotomy, lysis of Adhesion, partial omentectomy, hepatic flexure resection with side to side ascending colon to transverse colon anastomosis by Dr. Piper. Chronic atrial fibrillation with elevated heart rates postoperatively, likely being driven hospitalization, anemia, etc. Toprol XL increased from 25 BID to 50 mg BID. Will continue Toprol-XL at 50 mg twice per day for now, along with proper Coumadin anticoagulation. Outpatient Cardiology follow-up in [place] with Mrs. Sheriff RADHA on November 14, 2016, time to be determined. Patient sen and personally examined, agree with assessment and plan as above. Kyle Painting MD Laboratory Results Last 24 Hours Test 10/30/16 07:46 White Blood Count 10.59 K/uL Red Blood Count 3.83 M/uL Hemoglobin 8.8 g/dL Hematocrit 28.6 % Mean Corpuscular Volume 74.7 fL Mean Corpuscular Hemoglobin 23.0 pg Mean Corpuscular Hemoglobin Concent 30.8 g/dl Platelet Count 277 K/uL Mean Platelet Volume 8.5 fL Neutrophils (%) (Auto) 74.0 % Lymphocytes (%) (Auto) 11.5 % Monocytes (%) (Auto) 10.7 % Eosinophils (%) (Auto) 3.1 % Basophils (%) (Auto) 0.3 % Neutrophils # (Auto) 7.84 K/uL Lymphocytes # (Auto) 1.22 K/uL Monocytes # (Auto) 1.13 K/uL Eosinophils # (Auto) 0.33 K/uL Basophils # (Auto) 0.03 K/uL RDW Standard Deviation 56.3 fL RDW Coefficient of Variation 20.4 % Immature Granulocyte % (Auto) 0.4 % Immature Granulocyte # (Auto) 0.04 K/uL Nucleated RBC Absolute Count (auto) 0.03 K/uL Nucleated Red Blood Cells % 0.3 % Polychromasia 1+ Poikilocytosis PRESENT Anisocytosis PRESENT Prothrombin Time 26.5 SECONDS Prothromb Time International Ratio 2.4 Sodium Level 137 mmol/L Potassium Level 3.8 mmol/L Chloride Level 101 mmol/L Carbon Dioxide Level 31 mmol/L Anion Gap 5.0 mmol/L Blood Urea Nitrogen 8 mg/dl Creatinine 0.63 mg/dl Est Creatinine Clear Calc Drug Dose 65.7 ml/min Estimated GFR () 97.5 Estimated GFR (Non- 84.1 BUN/Creatinine Ratio 12.1 Random Glucose 92 mg/dl Calcium Level 8.3 mg/dl Magnesium Level 1.5 mg/dl Total Bilirubin 0.9 mg/dl Aspartate Amino Transf (AST/SGOT) 21 U/L Alanine Aminotransferase (ALT/SGPT) 18 U/L Alkaline Phosphatase 75 U/L Total Protein 6.0 gm/dl Albumin 2.2 gm/dl Globulin 3.8 gm/dl Albumin/Globulin Ratio 0.6
[2016-10-30] MEDS: MAGNESIUM OXIDE 400 MG TAB PO SCH ×2 (12:38→21:12)
[2016-10-30] MEDS ORDERED: TPRSR50 PO (13:06)
--- NOTE | 2016-10-30 13:09 | Discharge Instructions ---
Discharge Instructions Date of Service Oct 30, 2016. Admission Reason for Admission: Colon Cancer Discharge Discharge Diagnosis / Problem: partial colon resction (hepatic flexure) Discharge Goals Goal(s): Improve disease control Activity Recommendations Activity Level: Assistance Required Therapies: Physical Therapy, Occupational Therapy Lifting Limitations: no more than 10 pounds Shower/Bathe: no limitations . Additional Information Patient informed of condition: Yes Advance Directives: No DNR: No Level of Care: Skilled Communicable Disease: No Prognosis: Improving Current Hospital Diet Patient's current hospital diet: Regular Diet Discharge Diet Recommended Diet: AHA Diet (Heart Healthy) Procedures Procedures Performed: Exploratory Laparatomy, Lysis of Adhesion, Partial Omentectomy, Hepatic Flexure Resection with side to side ascending colon to transverse colon anastomosis hand sewn Pending Studies Studies pending at discharge: no Medical Emergencies . Who to Call and When: Medical Emergencies: If at any time you feel your situation is an emergency, please call 911 immediately. . Non-Emergent Contact Non-Emergency issues call your: Surgeon Call Non-Emergent contact if: you have a fever, temperature is above 101.5, your pain is not controlled, wound has increased redness . . "Provider Documentation" section prepared by Vipul Lawrence. . Core Measure Problem Core Measures: None
--- NOTE | 2016-10-30 13:30 | Discharge Summary ---
Discharge Summary Date of Service Oct 30, 2016. Admission Date/Reason Oct 24, 2016 at 13:44 Colon Cancer. Discharge Date/Disposition Nov 01, 2016 Home with services Diagnosis Principal Diagnosis: 1. Adenocarcinoma of colon 2. Chronic anemia 3. Chronic A-fib 4. HTN Procedure(s) Performed Exploratory Laparatomy, Lysis of Adhesion, Partial Omentectomy, Hepatic Flexure Resection with side to side anastomosis Consultations [facility], chronic atrial fibrillation Medication Reconciliation New Medications: Metoprolol Succinate (Metoprolol Succinate ER) 50 Mg Tabcr 50 MG PO BID17 for 30 Days Continued Medications: Acetaminophen (Acetaminophen) 500 Mg Tab 500 MG PO Q6 PRN for Pain or Fever for 15 Days, #60 TAB Atorvastatin (Lipitor) 20 Mg Tab 20 MG PO QAM, TAB Calcium Carbonate (Calcium) 600 Mg Tab 1 TAB PO QAM Cholecalciferol (Vitamin D) 1,000 Unit Tab 1 TAB PO QAM Cyanocobalamin (Vitamin B12 500MCG) 500 Mcg Tab 1000 MCG PO QAM, TAB Lactulose (Chronulac) 10 Gm/15 Ml Syrp 15 ML PO BID PRN for Constipation Lisinopril (Zestril) 30 Mg Tab 30 MG PO QAM, TAB Meclizine Hcl (Meclizine Hcl) 25 Mg Tab 1 TAB PO TID PRN for N for 10 Days, #30 TAB Polyethylene (Miralax) 17 Gm Pow 17 GM PO DAILY PRN for Constipation Sertraline (Zoloft) 100 Mg Tab 100 MG PO QAM, TAB Warfarin Sod (Jantoven) 2 Mg Tab 2 MG PO DIRECTED, TAB Discontinued Medications: Metoprolol Succinate (Toprol Xl) 25 Mg Tab 25 MG PO BID, #30 TAB Admission Physical Exam As per Admitting History & Physical. Hospital Course 81 y/o female with mass of hepatic flexure and anemia brought in thru Same Day and taken to the OR for resection. The procedure was well tolerated, she was admitted to telemetry and cardiology consulted routinely for her A-fib. She was given IV beta-nicole perioperatively. Her NG was removed on POD 1 and she was given clears, and coumadin and poHer metoprolol restarted. her hemoglobin fell from 9.3 to 7.6 and she was transfused 1 unit PRBCs and remained above 8 for the remainder of admission. Her heart rate remained elevated, her metoprolol was titrated upward. By POD 4 she was tolerating regular diet. She was transferred to the floor on POD 5 as discharge arrangements were made. Her incision was healing well. BP 118/81 with pulse 112. Hemoglobin stable at 8.8. She was stable for discharge on POD 8 with Home Health. Discharge Instructions Follow-up Dr. Piper in 1 week, [phone] Follow-up with [facility] ([place]) on Nov 14 Please refer to the electronic Patient Visit Report (Discharge Instructions) for additional information.
[2016-10-30] MEDS: WARFARIN SOD 2 MG TAB PO SCH (16:06)
[2016-10-31 08:03] LABS: HEMATOCRIT 26.3 % (37-47); MEAN CELL VOLUME 74.3 fL (80-100); MEAN CORPUSCULAR HEMOGLOBIN 23.2 pg (25-34); MEAN CORPUSCULAR HGB CONC 31.2 g/dl (32-36); MEAN PLATELET VOLUME 8.7 fL (7.4-10.4); PLATELET COUNT 275 K/uL (130-400); RED BLOOD COUNT 3.54 M/uL (4.2-5.4); WHITE BLOOD COUNT 9.74 K/uL (4.8-10.8)
[2016-10-31 08:05] VITALS: BP 122/84; PULSE 100; TEMP 36.9; O2SAT 97
[2016-10-31 08:10] LABS: INR 2.3 (0.9-1.1); PROTHROMBIN TIME (PATIENT) 25.1 SECONDS (9.0-12.0)
[2016-10-31 08:29] LABS: BUN/CREATININE RATIO 15.6 (10-20); CALCIUM 8.3 mg/dl (8.5-10.1); CREATININE 0.59 mg/dl (0.60-1.20); POTASSIUM 3.8 mmol/L (3.5-5.1)
[2016-10-31 08:49] VITALS: O2SAT 97
[2016-10-31] MEDS: MAGNESIUM OXIDE 400 MG TAB PO SCH ×2 (09:12→21:03)
[2016-10-31] MEDS: METOPROLOL SUCC 50MG EXT REL TAB PO SCH ×2 (09:12→16:29)
--- NOTE | 2016-10-31 10:57 | Surgery Progress Note ---
Surgery Progress Note Date of Service Oct 31, 2016. Subjective Post OP Day: 7 + feeling well, + bowel movement Objective Vital Signs: Date Time Temp Pulse Resp B/P (MAP) Pulse Ox O2 Delivery O2 Flow Rate FiO2 10/31/16 08:49 97 Room Air 10/31/16 08:05 36.9 100 16 122/84 (97) 97 Room Air 10/31/16 07:30 Room Air 10/31/16 00:00 Room Air 10/30/16 22:55 36.8 104 16 118/79 (92) 98 Room Air 10/30/16 16:58 108 118/78 (91) 10/30/16 16:00 Room Air 10/30/16 14:59 36.9 118 18 119/79 (92) 100 Room Air 10/30/16 14:51 37.3 112 18 95 2.0 10/30/16 14:30 36.7 118 16 120/83 (95) 97 Room Air 10/30/16 12:00 Room Air 10/30/16 11:09 37.3 112 18 118/81 (93) 95 Abdomen: non tender, non distended, soft Incision(s): clean, dry, no erythema Laboratory Results: Results Past 24 Hours Test 10/31/16 07:49 Range/Units White Blood Count 9.74 4.8-10.8 K/uL Red Blood Count 3.54 4.2-5.4 M/uL Hemoglobin 8.2 12.0-16.0 g/dL Hematocrit 26.3 37-47 % Mean Corpuscular Volume 74.3 80-100 fL Mean Corpuscular Hemoglobin 23.2 25-34 pg Mean Corpuscular Hemoglobin Concent 31.2 32-36 g/dl RDW Standard Deviation 55.8 36.4-46.3 fL RDW Coefficient of Variation 20.2 11.5-14.5 % Platelet Count 275 130-400 K/uL Mean Platelet Volume 8.7 7.4-10.4 fL Prothrombin Time 25.1 9.0-12.0 SECONDS Prothromb Time International Ratio 2.3 0.9-1.1 Sodium Level 138 136-145 mmol/L Potassium Level 3.8 3.5-5.1 mmol/L Chloride Level 102 98-107 mmol/L Carbon Dioxide Level 31 21-32 mmol/L Anion Gap 5.0 3-11 mmol/L Blood Urea Nitrogen 9 7-18 mg/dl Creatinine 0.59 0.60-1.20 mg/dl Est Creatinine Clear Calc Drug Dose 70.2 ml/min Estimated GFR () 99.6 Estimated GFR (Non- 86.0 BUN/Creatinine Ratio 15.6 10-20 Random Glucose 95 70-99 mg/dl Calcium Level 8.3 8.5-10.1 mg/dl Assessment & Plan s/p resection hepatic flexure doing well, stable for transfer to SNF H&H stable f/u next week for staple removal
--- NOTE | 2016-10-31 11:07 | Cardiology Follow-Up ---
Subjective General Date of Service: Oct 31, 2016. Chief Complaint: Chronic atrial fibrillation, elevated heart rates Pt evaluation today including: conversation w/ patient, physical exam, chart review, lab review, review of studies, review of inpatient medication list History of Present Illness The patient seen and examined. No complaints. Denies chest pain, palpitations, cough, dyspnea, orthopnea, PND, edema, lightheadedness, or dizziness. To be discharged, transferred to [facility] pending authorization from [facility]. Allergies Coded Allergies: No Known Allergies (Unverified , 10/24/16) Social History Smoking Status: Never Smoker Hx Tobacco Use In Past Year?: No Hx Alcohol Use - Type And Amou: No Hx Substance Use - Type And Am: No Problem List Medical Problems: (1) Acute GI bleeding Status: Acute (2) Blood loss anemia Status: Acute Physical Exam Vital Signs Last Vital Signs Documentation Date Time Temp Pulse Resp B/P (MAP) Pulse Ox O2 Delivery O2 Flow Rate FiO2 10/31/16 08:49 97 Room Air 10/31/16 08:05 36.9 100 16 122/84 (97) 10/30/16 14:51 2.0 Physical Exam Constitutional: Level of Distress: NAD Psychiatric: Mental Status: active & alert Orientation: to time, to place, to person Head: normocephalic, atraumatic Eyes: Pupils: PERRLA Neck: pertinent finding (No JVD) Lungs: Respiratory effort: no dyspnea Auscultation: breath sounds normal, no wheezing, no rales/crackles, no rhonchi Cardiovascular: Heart Auscultation: no murmurs, no rubs, no gallops, tachycardia (100 bpm), irregular rate rhythm Peripheral Pulses: Dorsalis Pedis Pulse: normal on the left, normal on the right Abdomen: Bowel Sounds: normal Extremities: no cyanosis, no edema, no clubbing Neurologic: Cranial Nerves: grossly intact Assessment and Plan Assessment and Plan Status post October 24, 2016 exploratory laparotomy, lysis of adhesions, partial omentectomy, hepatic flexure resection with side to side ascending to transverse colon anastomosis by Dr. Piper. Chronic atrial fibrillation with elevated heart rates postoperatively, likely being driven hospitalization, anemia, etc. Toprol XL increased from 25 BID to 50 mg BID this admission. Continue Toprol-XL at 50 mg twice per day for now, along with proper Coumadin anticoagulation. Outpatient Cardiology follow-up in [place] with Mrs. Sheriff RADHA on November 14, 2016 at 1:45 PM Laboratory Results Last 24 Hours Test 10/31/16 07:49 White Blood Count 9.74 K/uL Red Blood Count 3.54 M/uL Hemoglobin 8.2 g/dL Hematocrit 26.3 % Mean Corpuscular Volume 74.3 fL Mean Corpuscular Hemoglobin 23.2 pg Mean Corpuscular Hemoglobin Concent 31.2 g/dl RDW Standard Deviation 55.8 fL RDW Coefficient of Variation 20.2 % Platelet Count 275 K/uL Mean Platelet Volume 8.7 fL Prothrombin Time 25.1 SECONDS Prothromb Time International Ratio 2.3 Sodium Level 138 mmol/L Potassium Level 3.8 mmol/L Chloride Level 102 mmol/L Carbon Dioxide Level 31 mmol/L Anion Gap 5.0 mmol/L Blood Urea Nitrogen 9 mg/dl Creatinine 0.59 mg/dl Est Creatinine Clear Calc Drug Dose 70.2 ml/min Estimated GFR () 99.6 Estimated GFR (Non- 86.0 BUN/Creatinine Ratio 15.6 Random Glucose 95 mg/dl Calcium Level 8.3 mg/dl
[2016-10-31 15:01] VITALS: BP 121/78; PULSE 104; TEMP 37.4; O2SAT 95
[2016-10-31] MEDS: WARFARIN SOD 2 MG TAB PO SCH (16:28)
[2016-10-31 23:03] VITALS: BP 115/74; PULSE 107; TEMP 36.8; O2SAT 96
[2016-11-01 07:49] VITALS: BP 122/80; PULSE 104; TEMP 36.9; O2SAT 97
--- NOTE | 2016-11-01 08:07 | Surgery Progress Note ---
Surgery Progress Note Date of Service Nov 01, 2016. Subjective Post OP Day: 8 + feeling well, + ambulating, + diet (regular) Objective Vital Signs: Date Time Temp Pulse Resp B/P (MAP) Pulse Ox O2 Delivery O2 Flow Rate FiO2 11/01/16 07:49 36.9 104 16 122/80 (94) 97 Room Air 11/01/16 00:15 Room Air 10/31/16 23:03 36.8 107 16 115/74 (88) 96 Room Air 10/31/16 15:22 Room Air 10/31/16 15:01 37.4 104 17 121/78 (92) 95 Room Air 10/31/16 08:49 97 Room Air Abdomen: non tender, non distended, soft Incision(s): clean, dry, no erythema Laboratory Results: Results Past 24 Hours Test 11/01/16 08:00 Range/Units Assessment & Plan s/p resection hepatic flexure d/c planning H&H stable f/u next week for staple removal seen with Dr. Piper
[2016-11-01] MEDS: METOPROLOL SUCC 50MG EXT REL TAB PO SCH (08:40)
[2016-11-01] MEDS: MAGNESIUM OXIDE 400 MG TAB PO SCH (08:40)
[2016-11-01 08:46] VITALS: O2SAT 97
[2016-11-01 09:08] LABS: HEMATOCRIT 27.3 % (37-47); MEAN CELL VOLUME 74.4 fL (80-100); MEAN CORPUSCULAR HEMOGLOBIN 23.4 pg (25-34); MEAN CORPUSCULAR HGB CONC 31.5 g/dl (32-36); MEAN PLATELET VOLUME 8.7 fL (7.4-10.4); PLATELET COUNT 317 K/uL (130-400); RED BLOOD COUNT 3.67 M/uL (4.2-5.4); WHITE BLOOD COUNT 8.44 K/uL (4.8-10.8)
[2016-11-01 09:14] LABS: INR 2.5 (0.9-1.1); PROTHROMBIN TIME (PATIENT) 27.5 SECONDS (9.0-12.0)
[2016-11-01 09:35] LABS: BUN/CREATININE RATIO 9.6 (10-20); CALCIUM 8.7 mg/dl (8.5-10.1); CREATININE 0.76 mg/dl (0.60-1.20); POTASSIUM 3.9 mmol/L (3.5-5.1)
--- NOTE | 2016-11-01 11:34 | Discharge Instructions ---
Discharge Instructions Date of Service Nov 01, 2016. Admission Reason for Admission: Colon Cancer Discharge Discharge Diagnosis / Problem: partial colon resection Discharge Goals Goal(s): Improve disease control Activity Recommendations Activity Limitations: as noted below Lifting Limitations: no more than 10 pounds Shower/Bathe: no limitations . Instructions / Follow-Up Instructions / Follow-Up Dr. Shields office next week, call [phone] if you do not have an appt already scheduled Current Hospital Diet Patient's current hospital diet: Regular Diet Discharge Diet Recommended Diet: Regular Diet Procedures Procedures Performed: Exploratory Laparatomy, Lysis of Adhesion, Partial Omentectomy, Hepatic Flexure Resection with side to side ascending colon to transverse colon anastomosis hand sewn Pending Studies Studies pending at discharge: no Medical Emergencies . Who to Call and When: Medical Emergencies: If at any time you feel your situation is an emergency, please call 911 immediately. . Non-Emergent Contact Non-Emergency issues call your: Surgeon Call Non-Emergent contact if: you have a fever, temperature is above 101.5, your pain is not controlled, wound has increased redness, you have any medication questions . "Provider Documentation" section prepared by Vipul Lawrence. . VTE Core Measure Inpt VTE Proph given/why not?: Unfractionated heparin SQ, SCD's
[2016-11-01 13:18] VITALS: BP 122/80; PULSE 104; TEMP 36.9; O2SAT 97
== END 2016-11-01 13:41 | disposition home health service (06) | DRG 330 ==
LOC: C.ACU 08:47 → C.2T 13:44 → ENRESERV 14:29 → C.MSW 10-30 14:27
PROVIDERS: ADMIT Surgery; ATTEND Surgery
PROC: 0DBK0ZZ Excision of Ascending Colon, Open Approach (ICD-10-PCS; principal; 2016-10-24 10:45)
DX: C18.3 Malignant neoplasm of hepatic flexure (principal); C77.2 Secondary and unspecified malignant neoplasm of intra-abdominal lymph nodes; D62 Acute posthemorrhagic anemia; Z92.3 Personal history of irradiation; I48.2 Chronic atrial fibrillation; F32.9 Major depressive disorder, single episode, unspecified; E78.5 Hyperlipidemia, unspecified; M81.0 Age-related osteoporosis without current pathological fracture; I10 Essential (primary) hypertension; Z86.73 Personal history of transient ischemic attack (TIA), and cerebral infarction without residual deficits

== ENCOUNTER 2020-02-29 14:04 | Inpatient (IN) ==
[2020-02-29] MEDS ORDERED: ONDANSETRON INJ 2 MG/ML 2 ML VIAL ONE (14:23)
[2020-02-29] MEDS ORDERED: OPTIRAY 320 125ml IV ONE (14:27)
--- NOTE | 2020-02-29 14:29 | CT Scan Report ---
CT head/brain wo con CLINICAL HISTORY: Acute stroke. Aphasia. COMPARISON STUDY: 09/25/2018 TECHNIQUE: Axial CT of the brain is performed from the vertex to the skull base. IV contrast was not administered for this examination. A dose lowering technique was utilized adhering to the principles of ALARA. CT DOSE: 921.40 mGy.cm FINDINGS: No intra or extra-axial mass lesions are visualized. There is no CT evidence of acute cortical infarc tion. There is no evidence of midline shift. There is no acute hemorrhage. No calvarial fractures ar e visualized. There are patchy white matter hypodensities likely on a small vessel basis. There is an old right par ietal infarct, an old left occipital infarct. There is no evidence of pathologic ventricular dilatation. There is no evidence of acute sinusitis. 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 The examination is motion degraded. IMPRESSION: 1. Motion degraded study 2. No acute intracranial findings 3. 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 Electronically signed by: Elmer Lau M.D. 02/29/2020 2:28 PM
--- NOTE | 2020-02-29 14:44 | CT Scan Report ---
CT angio head w con CLINICAL HISTORY: Acute stroke TECHNIQUE: CT angiography of the head was performed in a dynamic helical fashion during intravenous a dministration of 118 cc of Optiray 320. MIP imaging was performed. A dose lowering technique was util ized adhering to the principles of ALARA. CT DOSE: 530.22 mGy.cm COMPARISON STUDY: No previous studies for comparison. FINDINGS: The left internal carotid artery is occluded. The anterior communicating artery is patent. There are no lesion suspicious for aneurysm. The dural venous sinuses appear patent. There is occlusi on of the M1 segment of the left middle cerebral artery. There is stenosis of the P2 segment of the r ight posterior cerebral artery. IMPRESSION: 1. Left internal carotid artery occlusion 2. Occlusion of the M1 segment left middle cerebral artery 3. Stenosis of the P2 segment of the right posterior cerebral artery ACT 112: Negative or not required by law. Electronically signed by: Elmer Lau M.D. 02/29/2020 2:43 PM
--- NOTE | 2020-02-29 14:48 | CT Scan Report ---
CT angio neck with con CLINICAL HISTORY: stroke COMPARISON STUDY: Acute stroke TECHNIQUE: CT angiography was performed from the aortic arch to the skull base. MIP imaging was perfo rmed. The patient was scanned in a dynamic helical fashion during intravenous administration of 118 c c of Optiray 320. A dose lowering technique was utilized adhering to the principles of ALARA. CT DOSE: Technique: CT angiogram of the carotid and vertebral arteries was obtained using intravenous contrast and 3-D reconstruction. NASCET criteria was utilized. Findings: There is a solid 4 mm pulmonary nodule within the right lung apex. In a low-risk patient, no further follow-up is indicated. The right carotid revealed no evidence of aneurysm and no evidence of dissection. There is no evidenc e of hemodynamic significant stenosis. The left internal carotid artery occludes shortly after its origin. The etiology of this occlusion is unknown. A dissection must be considered given the configuration of the contrast. There is no evidence of hemodynamically significant vertebral stenosis. There is no evidence of verte bral dissection. IMPRESSION: 1. The left internal carotid artery occludes shortly after its origin. The etiology of this occlusion is unknown. A dissection cannot be excluded given the configuration of the contrast. ACT 112: Negative or not required by law. Electronically signed by: Elmer Lau M.D. 02/29/2020 2:47 PM
[2020-02-29 14:51] LABS: Basophils # (auto) 0.03 K/uL (0-0.2); Basophils % (auto) 0.3 %; Eosinophils # (auto) 0.28 K/uL (0-0.5); Eosinophils % (auto) 2.3 %; Hematocrit (blood only) 37.4 % (37-47); Hemoglobin 12.1 g/dL (12.0-16.0); Immature Granulocytes # (auto) 0.04 K/uL (0.00-0.02); Immature Granulocytes % (auto) 0.3 %; Lymphocytes # (auto) 1.77 K/uL (1.2-3.4); Lymphocytes % (auto) 14.8 %; Mean Corpuscular Hemoglobin 27.1 pg (25-34); Mean Corpuscular Hgb Conc 32.4 g/dL (32-36); Mean Corpuscular Volume 83.7 fL (80-100); Mean Platelet Volume 9.7 fL (7.4-10.4); Monocytes # (auto) 0.65 K/uL (0.11-0.59); Monocytes % (auto) 5.4 %; Neutrophils # (auto) 9.22 K/uL (1.4-6.5); Neutrophils % (auto) 76.9 %; Platelet Count 295 K/uL (130-400); RDW Standard Deviation 48.7 fL (36.4-46.3); Red Blood Count 4.47 M/uL (4.2-5.4); White Blood Count 11.99 K/uL (4.8-10.8)
[2020-02-29 15:02] LABS: INR 1.7 (0.9-1.1); Partial Thromboplastin Time 28.5 Seconds (21.0-31.0); Prothrombin Time 17.6 Seconds (9.0-12.0)
[2020-02-29 15:04] LABS: iSTAT Creatinine 0.7 mg/dl (0.6-1.3); iSTAT Hemoglobin 12.9 g/dl (12.0-16.0); iSTAT Ionized Calcium 1.22 mmol/l (1.12-1.32)
[2020-02-29] MEDS ORDERED: TPA for Stroke IV STA (15:07)
[2020-02-29 15:13] LABS: Alanine Aminotransferase 16 U/L (12-78); Albumin Level 3.3 gm/dl (3.4-5.0); Aspartate Aminotransferase 16 U/L (15-37); BUN Creatinine Ratio 10.7 (10-20); Blood Urea Nitrogen 9 mg/dl (7-18); Calcium 8.6 mg/dl (8.5-10.1); Carbon Dioxide 29 mmol/L (21-32); Chloride 106 mmol/L (98-107); Est GFR (African American) 71.4; Est GFR (Non-African American) 61.6; Glucose 148 mg/dl (70-99); Magnesium 1.5 mg/dl (1.8-2.4); Potassium 4.2 mmol/L (3.5-5.1); Sodium 139 mmol/L (136-145)
[2020-02-29] MEDS ORDERED: Alteplase Bolus 7.4 MG in SYRINGE 0 ML IV ONE (15:17)
--- NOTE | 2020-02-29 15:17 | History & Physical Report ---
Date of Service February 29, 2020 Assessment & Plan (1) Acute CVA (cerebrovascular accident): Acute CVA Acute metabolic encephalopathy Angioedema S/P TPA--developed anaphylactic reaction to TPA Subtherapeutic INR Hypomagnesemia Lactic acidosis Prolonged QTC Chronic atrial fibrillation Metastatic colon cancer Dyslipidemia Hypertension Vascular dementia CKD stage III Patient was initially admitted to ICU post TPA. Patient developed anaphylactic reaction to TPA and was discontinued as a result. She received Solu-Medrol, Benadryl, epinephrine, phenylephrine. Patient is on Coumadin for atrial fibrillation but INR is subtherapeutic at 1.7. Plan was to transition to comfort measures if patient clinically deteriorates. Patient's son who is the POA confirm CODE STATUS to be DNI DNR and suggested no aggressive measures. Patient's family is aware of the complications of TPA and very high risk for bleeding. Family discussed with ICU team and patient was transitioned to comfort measures based on family's wishes. Patient's family understands and agrees with current management. History of Present Illness Chief Complaint: Altered mental status Primary Care Provider: Vipul Eduardo MD Patient is an 85-year-old female with history of atrial fibrillation, metastatic colon cancer, dementia, dyslipidemia, depression, hypertension, multiple TIAs, CKD stage III and other medical problems presents with history of altered mental status. Patient is obtunded while in ED and unable to provide any history secondary to mental status. Most of the history is obtained from patient's son at bedside, ER physician and old records. Patient was known to be well this afternoon watching football game along with transportation aid. At around 1:15 PM, patient slipped out of her chair and became obtunded. While in ED, patient is nonverbal and remains obtunded. She does not follow commands but still was able to move her extremities although decreased movement in right upper extremity noted. Stroke alert was called, and as per recommendations from daily neurology--TPA was administered based on CTA findings. Shortly after administering TPA's, patient had anaphylactic reaction to TPA and was discontinued. Patient received Solu-Medrol, Benadryl, famotidine, epinephrine and was transferred to ICU for further management. Patient son who is the POA confirmed the CODE STATUS to be DNI DNR. Allergies Allergy/AdvReac Type Severity Reaction Status Date / Time No Known Allergies Allergy Unverified 02/29/20 15:33 Home Medications Medication Instructions Recorded Confirmed Type atorvastatin 20 mg PO QAM #0 tab 05/05/15 02/29/20 History warfarin 2 mg PO 4XWK #0 tab 08/24/16 02/29/20 History sertraline 100 mg PO QAM #0 tab 10/09/16 02/29/20 History metoprolol succinate 50 mg PO BID 04/17/18 02/29/20 History warfarin 1 mg PO TUTHSA 04/17/18 02/29/20 History lisinopril 30 mg PO DAILY 02/29/20 02/29/20 History Past Med/Surg History Medical History Anemia Atrial fibrillation Depression Dyslipidemia GI bleed H/O secondary malignant neoplasm of retroperitoneum and peritoneum HTN (hypertension) Mass of hepatic flexure of colon 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 TIA (transient ischemic attack) Vertigo Surgical History S/P partial colectomy "04/26/98" S/P partial hysterectomy S/P small bowel resection "01/18/99" Social History Smoking Status: Never smoker Feels Safe at Home: Yes Review of Systems Review of Systems: Unobtainable due to reduced consciousness Physical Exam Physical Exam: Physical Exam: Vitals signs as noted above General Appearance:Moderately built and nourished, no apparent distress Head: normocephalic, Atraumatic Eyes: normal inspection, sluggish pupillary reaction Neck: supple, Trachea midline Respiratory/Chest: Normal breath sounds, CTA, No accessory muscle use Cardiovascular: Irregularly irregular No murmur Abdomen/GI:Soft, Non tender, Bowel sounds present Extremities/Musculoskelatal:normal inspection, + B/L LE edema Neurologic/Psych: Obtunded, complete neurological exam could not be performed. Skin: normal color, warm Results & Data Results & Data ([facility]) Laboratory Results Short CBC 02/29/20 Range/Units 14:30 WBC 11.99 H (4.8-10.8) K/uL Hgb 12.1 (12.0-16.0) g/dL Hct 37.4 (37-47) % Plt Count 295 (130-400) K/uL BMP 02/29/20 14:30 Sodium 139 Potassium 4.2 Chloride 106 Carbon Dioxide 29 BUN 9 Creatinine 0.86 Glucose 148 H Calcium 8.6 Cardiac Enzymes 02/29/20 02/29/20 Range/Units 14:30 18:19 Troponin I < 0.015 < 0.015 (0-0.045) ng/ml Liver Function 02/29/20 Range/Units 14:30 Total Bilirubin 1.1 H (0.2-1) mg/dl AST 16 (15-37) U/L ALT 16 (12-78) U/L Alkaline Phosphatase 72 (45-117) U/L Albumin 3.3 L (3.4-5.0) gm/dl Urine 02/29/20 Range/Units 15:50 Urine Color Yellow Urine Appearance Clear (Clear) Urine pH 5.0 (4.5-7.5) Ur Specific [place] > 1.045 H (1.000-1.030) Urine Protein Negative (Negative) Urine Glucose (UA) Negative (Negative) Diagnostic Findings Head CT: 1. Motion degraded study 2. No acute intracranial findings 3. 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 Left internal carotid artery occlusion 2. Occlusion of the M1 segment left middle cerebral artery 3. Stenosis of the P2 segment of the right posterior cerebral artery Neck CTA: The left internal carotid artery occludes shortly after its origin. The etiology of this occlusion is unknown. A dissection cannot be excluded given the configuration of the contrast. ECG Additional Comments: EKG: Atrial fibrillation, nonspecific ST-T wave changes QTc 474
[2020-02-29 15:18] LABS: Albumin Globulin Ratio 0.9 (0.9-2); Alkaline Phosphatase 72 U/L (45-117); Bilirubin,Total 1.1 mg/dl (0.2-1); Globulin 3.6 gm/dl (2.5-4.0); Total Protein 6.9 gm/dl (6.4-8.2); Troponin I < 0.015 ng/ml (0-0.045)
[2020-02-29] MEDS ORDERED: PRIMARY PLUMSET, PE LINED TUBING, 113 IN, NON-DEHP (2260-0500) IV ONE (15:18)
[2020-02-29] MEDS ORDERED: ALTEPLASE, RECOMBINANT 66 MG in EMPTY BAG 0 ML IV ONE (15:18)
--- NOTE | 2020-02-29 16:04 | Emergency Department Note ---
Impression & Plan Stroke, Atrial fibrillation, Angioedema, Carotid artery occlusion ED Provider Note Provider: Alfonzo Rodas MD DATE OF SERVICE:02/29/2020 CHIEF COMPLAINT: Altered mental status HISTORY OF PRESENT ILLNESS: Patient is a 85-year-old female history of hypertension, TIA, atrial fibrillation on Coumadin presented to ED ambulance from her [facility] apartment. 115 was her last known well when she slumped over in front of kil[employer]/friend department. Ambulance immediately called. Nonverbal for them not following commands with some left gaze deviation made a stroke alert prior to arrival. We will evaluate in the CT scanner. No significant trauma reported. Patient is also noted provide additional history. Withdraws all 4 extremities to pain although somewhat lessened on the right side . Patient's son arrives and states she is normally talkative and ambulatory but with some moderate dementia. States she is usually very compliant with her Coumadin. REVIEW OF SYSTEMS: Limited secondary mental status PAST MEDICAL HISTORY: As noted above MEDICATIONS: Reviewed home medication list SOCIAL HISTORY: Non-smoker, lives in apartment at the [facility] PHYSICAL EXAM: GENERAL: On stretcher his eyes closed not following commands, nonverbal Head: normocephalic and atraumatic EYES: No injection, discharge or icterus. PERRL eyes facing midline and to the left NECK: Trachea midline. Supple. ENT: Mucous membranes pink and moist. LUNGS: Airway patent. No retractions. Breath sounds clear HEART: Irregularly irregular rate and rhythm. No chest wall tenderness ABDOMEN: Soft and non-tender, without guarding or rebound. SKIN: Acyanotic, warm, dry EXTREMITIES: Mild bilateral trace edema. NEUROLOGICAL: Withdraws to pain in all 4 but diminished movement of the right upper arm in particular. Flicker of movement in the right bilateral feet. Not following commands. Somewhat of a left gaze deviation but difficult to get a true sense that she is again not following commands and if you have to open her eyes manually. EK bpm atrial fibrillation without acute ST segment elevation or depression. Normal QRS interval. Normal axis. No PVCs noted. CONTINUOUS CARDIAC MONITORING: was ordered and showed a heart rate of 98 bpm in atrial fibrillation occasionally a heart rate in the low 100s. Patient's laboratory studies and imaging reviewed. Differential includes Infection, dehydration, metabolic abnormality, hypo/hyperglycemia, electrolyte disturbance, anemia, hypoxia, cardiac sources, intracerebral event, toxicologic, neurologic, as well as other pathologies. IMPRESSION/MEDICAL DECISION MAKING: Patient is an 85-year-old female presenting today after sudden change in mental status witnessed within the TPA window. Made a stroke alert prior to arrival. Taken immediately to scanner. Patient began to vomit after CT angiograms were completed. Rolled on to her side and taken to room C11. Suctioning and Zofran was given with resolution. Patient does mildly resist care and suctioning. Telestroke was initiated. No evidence of acute intracranial bleed on CT. Patient is on Coumadin -- thus concern with TPA use. [id number] INR elevated at 1.9 which would be a contraindication. Son present. Discussion with him and with telestroke MD. CT angiogram is completed shows evidence of a left carotid artery occlusion as well as occlusion of the left middle cerebral artery likely acute. Concerned this is causing her significant symptoms and sudden onset. Patient is in a generally rate controlled atrial fibrillation. Neuro exam is quite poor and again not following commands and nonverbal. Discussed with telestroke and given her age and comorbidities with mild dementia [place] telestroke do not feel the patient was interventional candidate. They did update the patient's son who understood. Did discuss with the patient options regarding TPA usage but initially held TPA secondary to elevated [id number] INR on [id number] test which would be a contraindication at 1.9. Formal INR from the laboratory returned at 1.7 within the parameters and as such in discussion with telestroke and her son TPA was administered. Patient son understood limitations of intervention and with her comorbidities outcome is questionable. Initially discussed with the ICU team monitoring after the TPA was ordered. He states he does not want any aggressive measures such as surgery, CPR, or intubation. Patient later was noted to be somewhat hypertensive and mildly agitated. Glove mitts were applied for patient safety. Initially some labetalol was ordered given the significant diastolic hypertension however patient's blood pressure then began to decline. Given additional IV fluid at this time the patient did not receive any labetalol in the ER. Later evaluation noted increased edema of the tongue appears unfortunately consistent with post TPA angioedema. Patient was almost finished with the hour-long infusion of TPA but was stopped approximately 5 to 10 minutes early upon noting the angioedema findings. Solu-Medrol and Pepcid were ordered as well as some Benadryl. Hospitalist team is aware. Again there was some delay initially in giving the TPA due to the point of care INR being falsely elevated in comparison to formal lab INR. Patient did require some suctioning of oral secretions but was no acute respiratory distress or stridor. Given patient's son does not wish for aggressive airway intervention or intubation. Did discuss with him the gravity of her condition. DIAGNOSIS: Stroke status post TPA, altered mental status, angioedema DISPOSITION: Hospitalist will evaluate for further care Critical Care I have personally spent 75 minutes of critical care time in the direct management of this patient. This includes bedside care, interpretation of diagnostic studies, and testing, discussion with consultants, patient, and family members, and other required patient management activities. These 75 minutes is in excess of all separately billable procedures. 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 TIA (transient ischemic attack) Vertigo Surgical History S/P partial colectomy "04/26/98" S/P partial hysterectomy S/P small bowel resection "01/18/99" Social History Smoking Status: Never smoker Feels Safe at Home: Yes Allergies Allergies Allergy/AdvReac Type Severity Reaction Status Date / Time No Known Allergies Allergy Unverified 02/29/20 15:33 Home Meds Home Medications Medication Instructions Recorded Confirmed atorvastatin 20 mg PO QAM #0 tab 05/05/15 02/29/20 warfarin 2 mg PO 4XWK #0 tab 08/24/16 02/29/20 sertraline 100 mg PO QAM #0 tab 10/09/16 02/29/20 metoprolol succinate 50 mg PO BID 04/17/18 02/29/20 warfarin 1 mg PO TUTHSA 04/17/18 02/29/20 lisinopril 30 mg PO DAILY 02/29/20 02/29/20 Results & Data (ED) Vital Signs Vital Signs - 24 hr 02/29/20 14:39 02/29/20 14:42 02/29/20 14:45 Temperature Temperature Source Pulse Rate 97 H 87 86 Pulse Rate [Left Finger] Pulse Rate from SpO2 Sensor 95 H 91 H 89 Pulse Rhythm [Left Finger] Pulse Strength [Left Finger] Respiratory Rate 23 18 19 Respiratory Effort / Characteristics Respiratory Depth Respiratory Pattern Blood Pressure 172/159 H 141/99 H 144/97 H Blood Pressure [Right Arm] Blood Pressure Mean 165 108 123 Blood Pressure Mean [Right Arm] Blood Pressure Position [Right Arm] Pulse Oximetry 100 100 100 Oxygen Delivery Method Sepsis Recent Fever Within 48 Hours Sepsis New/Unexplained Change in Mental Status Sepsis Action Taken by Nursing 02/29/20 14:56 02/29/20 15:01 02/29/20 15:04 Temperature 36.4 C L Temperature Source Oral Pulse Rate 88 92 H Pulse Rate [Left Finger] Pulse Rate from SpO2 Sensor 98 H 89 Pulse Rhythm [Left Finger] Pulse Strength [Left Finger] Respiratory Rate 20 15 15 Respiratory Effort / Characteristics Non-Labored Spontaneous Respiratory Depth Normal Respiratory Pattern Regular Blood Pressure 152/124 H 153/87 H Blood Pressure [Right Arm] Blood Pressure Mean 129 108 Blood Pressure Mean [Right Arm] Blood Pressure Position [Right Arm] Pulse Oximetry 100 100 Oxygen Delivery Method Room Air Sepsis Recent Fever Within 48 Hours No Sepsis New/Unexplained Change in Mental Status N/A Sepsis Action Taken by Nursing No Action Required 02/29/20 15:31 02/29/20 15:45 02/29/20 16:00 Temperature 36.7 C Temperature Source Oral Pulse Rate 94 H Pulse Rate [Left Finger] 97 H 111 H Pulse Rate from SpO2 Sensor 99 H Pulse Rhythm [Left Finger] Regular Regular Pulse Strength [Left Finger] Normal Normal Respiratory Rate 15 20 25 H Respiratory Effort / Characteristics Non-Labored Non-Labored Respiratory Depth Normal Normal Respiratory Pattern Regular Regular Blood Pressure 142/83 H Blood Pressure [Right Arm] 130/101 H 142/112 H Blood Pressure Mean 106 Blood Pressure Mean [Right Arm] 110 122 Blood Pressure Position [Right Arm] Lying Lying Pulse Oximetry 97 99 100 Oxygen Delivery Method Room Air Room Air Sepsis Recent Fever Within 48 Hours Sepsis New/Unexplained Change in Mental Status Sepsis Action Taken by Nursing 02/29/20 16:15 02/29/20 16:30 Temperature 36.7 C 36.8 C Temperature Source Oral Oral Pulse Rate Pulse Rate [Left Finger] 113 H 109 H Pulse Rate from SpO2 Sensor Pulse Rhythm [Left Finger] Regular Pulse Strength [Left Finger] Normal Respiratory Rate 20 17 Respiratory Effort / Characteristics Grunting Respiratory Depth Normal Respiratory Pattern Regular Blood Pressure Blood Pressure [Right Arm] 103/57 L 81/49 L Blood Pressure Mean Blood Pressure Mean [Right Arm] 72 59 Blood Pressure Position [Right Arm] Lying Pulse Oximetry 98 97 Oxygen Delivery Method Sepsis Recent Fever Within 48 Hours Sepsis New/Unexplained Change in Mental Status Sepsis Action Taken by Nursing Laboratory Data Result diagrams: 02/29/20 14:30 02/29/20 14:30 Lab Results 02/29/20 02/29/20 02/29/20 Range/Units 14:13 14:30 14:30 WBC 11.99 H (4.8-10.8) K/uL RBC 4.47 (4.2-5.4) M/uL Hgb 12.1 (12.0-16.0) g/dL POC Hgb 12.9 (12.0-16.0) g/dl Hct 37.4 (37-47) % POC Hct 38 (37-47) % MCV 83.7 (80-100) fL MCH 27.1 (25-34) pg MCHC 32.4 (32-36) g/dL RDW Std Deviation 48.7 H (36.4-46.3) fL RDW Coeff of Gilles 16.0 H (11.5-14.5) % Plt Count 295 (130-400) K/uL MPV 9.7 (7.4-10.4) fL Immature Gran % (Auto) 0.3 % Neut % (Auto) 76.9 % Lymph % (Auto) 14.8 % [place] % (Auto) 5.4 % Eos % (Auto) 2.3 % Baso % (Auto) 0.3 % Neut # (Auto) 9.22 H (1.4-6.5) K/uL Lymph # (Auto) 1.77 (1.2-3.4) K/uL [place] # (Auto) 0.65 H (0.11-0.59) K/uL Eos # (Auto) 0.28 (0-0.5) K/uL Baso # (Auto) 0.03 (0-0.2) K/uL Immature Gran # (Auto) 0.04 H (0.00-0.02) K/uL PT (9.0-12.0) Seconds INR (0.9-1.1) APTT (21.0-31.0) Seconds PTT Ratio POC Sodium 142 (135-144) mmol/L Sodium (136-145) mmol/L POC Potassium 4.0 (3.3-5.0) mmol/L Potassium (3.5-5.1) mmol/L POC Chloride 103 (101-112) mmol/L Chloride (98-107) mmol/L Carbon Dioxide (21-32) mmol/L POC Total CO2 27 (24-31) mmol/L Anion Gap (3-11) POC Anion Gap 16.0 (16-25) mmol/L POC BUN 9 (7-18) mg/dl BUN (7-18) mg/dl Creatinine (0.6-1.2) mg/dl POC Creatinine 0.7 (0.6-1.3) mg/dl Est Cr Clr Drug Dosing Est GFR ( Amer) Est GFR (Non-Af Amer) BUN/Creatinine Ratio (10-20) Glucose (70-99) mg/dl POC Glucose (other) 142 H (70-99) mg/dl Lactate (0.4-2.0) mmol/L Calcium (8.5-10.1) mg/dl POC Ioniz Calcium Natacha 1.22 (1.12-1.32) mmol/l Magnesium (1.8-2.4) mg/dl Total Bilirubin (0.2-1) mg/dl AST (15-37) U/L ALT (12-78) U/L Alkaline Phosphatase (45-117) U/L Troponin I (0-0.045) ng/ml Total Protein (6.4-8.2) gm/dl Albumin (3.4-5.0) gm/dl Globulin (2.5-4.0) gm/dl Albumin/Globulin Ratio (0.9-2) Urine Color Urine Appearance (Clear) Urine pH (4.5-7.5) Ur Specific Oscar (1.000-1.030) Urine Protein (Negative) Urine Glucose (UA) (Negative) Urine Ketones (Negative) Urine Blood (Negative) Urine Nitrite (Negative) Urine Bilirubin (Negative) Urine Urobilinogen (Negative) Ur Leukocyte Esterase (Negative) Urine WBC (Auto) (0-5) /hpf Urine RBC (Auto) (0-4) /hpf U Hyaline Cast (Auto) (0-5) /lpf U Epithel Cells (Auto) (0-5) /lpf Urine Bacteria (Auto) (Negative) Ur Renal Epithelial Cell SARS-CoV-2 Ag (Rapid) (Negative) Blood Type A Positive Antibody Screen NEGATIVE 02/29/20 02/29/20 02/29/20 Range/Units 14:30 14:30 14:40 WBC (4.8-10.8) K/uL RBC (4.2-5.4) M/uL Hgb (12.0-16.0) g/dL POC Hgb (12.0-16.0) g/dl Hct (37-47) % POC Hct (37-47) % MCV (80-100) fL MCH (25-34) pg MCHC (32-36) g/dL RDW Std Deviation (36.4-46.3) fL RDW Coeff of Gilles (11.5-14.5) % Plt Count (130-400) K/uL MPV (7.4-10.4) fL Immature Gran % (Auto) % Neut % (Auto) % Lymph % (Auto) % [place] % (Auto) % Eos % (Auto) % Baso % (Auto) % Neut # (Auto) (1.4-6.5) K/uL Lymph # (Auto) (1.2-3.4) K/uL [place] # (Auto) (0.11-0.59) K/uL Eos # (Auto) (0-0.5) K/uL Baso # (Auto) (0-0.2) K/uL Immature Gran # (Auto) (0.00-0.02) K/uL PT 17.6 H (9.0-12.0) Seconds INR 1.7 H (0.9-1.1) APTT 28.5 (21.0-31.0) Seconds PTT Ratio 1.0 POC Sodium (135-144) mmol/L Sodium 139 (136-145) mmol/L POC Potassium (3.3-5.0) mmol/L Potassium 4.2 (3.5-5.1) mmol/L POC Chloride (101-112) mmol/L Chloride 106 (98-107) mmol/L Carbon Dioxide 29 (21-32) mmol/L POC Total CO2 (24-31) mmol/L Anion Gap 4.0 (3-11) POC Anion Gap (16-25) mmol/L POC BUN (7-18) mg/dl BUN 9 (7-18) mg/dl Creatinine 0.86 (0.6-1.2) mg/dl POC Creatinine (0.6-1.3) mg/dl Est Cr Clr Drug Dosing Not Reportable Est GFR ( Amer) 71.4 Est GFR (Non-Af Amer) 61.6 BUN/Creatinine Ratio 10.7 (10-20) Glucose 148 H (70-99) mg/dl POC Glucose (other) (70-99) mg/dl Lactate 2.1 H* (0.4-2.0) mmol/L Calcium 8.6 (8.5-10.1) mg/dl POC Ioniz Calcium Natacha (1.12-1.32) mmol/l Magnesium 1.5 L (1.8-2.4) mg/dl Total Bilirubin 1.1 H (0.2-1) mg/dl AST 16 (15-37) U/L ALT 16 (12-78) U/L Alkaline Phosphatase 72 (45-117) U/L Troponin I < 0.015 (0-0.045) ng/ml Total Protein 6.9 (6.4-8.2) gm/dl Albumin 3.3 L (3.4-5.0) gm/dl Globulin 3.6 (2.5-4.0) gm/dl Albumin/Globulin Ratio 0.9 (0.9-2) Urine Color Urine Appearance (Clear) Urine pH (4.5-7.5) Ur Specific Oscar (1.000-1.030) Urine Protein (Negative) Urine Glucose (UA) (Negative) Urine Ketones (Negative) Urine Blood (Negative) Urine Nitrite (Negative) Urine Bilirubin (Negative) Urine Urobilinogen (Negative) Ur Leukocyte Esterase (Negative) Urine WBC (Auto) (0-5) /hpf Urine RBC (Auto) (0-4) /hpf U Hyaline Cast (Auto) (0-5) /lpf U Epithel Cells (Auto) (0-5) /lpf Urine Bacteria (Auto) (Negative) Ur Renal Epithelial Cell SARS-CoV-2 Ag (Rapid) (Negative) Blood Type Antibody Screen 02/29/20 02/29/20 Range/Units 15:50 16:10 WBC (4.8-10.8) K/uL RBC (4.2-5.4) M/uL Hgb (12.0-16.0) g/dL POC Hgb (12.0-16.0) g/dl Hct (37-47) % POC Hct (37-47) % MCV (80-100) fL MCH (25-34) pg MCHC (32-36) g/dL RDW Std Deviation (36.4-46.3) fL RDW Coeff of Gilles (11.5-14.5) % Plt Count (130-400) K/uL MPV (7.4-10.4) fL Immature Gran % (Auto) % Neut % (Auto) % Lymph % (Auto) % [place] % (Auto) % Eos % (Auto) % Baso % (Auto) % Neut # (Auto) (1.4-6.5) K/uL Lymph # (Auto) (1.2-3.4) K/uL [place] # (Auto) (0.11-0.59) K/uL Eos # (Auto) (0-0.5) K/uL Baso # (Auto) (0-0.2) K/uL Immature Gran # (Auto) (0.00-0.02) K/uL PT (9.0-12.0) Seconds INR (0.9-1.1) APTT (21.0-31.0) Seconds PTT Ratio POC Sodium (135-144) mmol/L Sodium (136-145) mmol/L POC Potassium (3.3-5.0) mmol/L Potassium (3.5-5.1) mmol/L POC Chloride (101-112) mmol/L Chloride (98-107) mmol/L Carbon Dioxide (21-32) mmol/L POC Total CO2 (24-31) mmol/L Anion Gap (3-11) POC Anion Gap (16-25) mmol/L POC BUN (7-18) mg/dl BUN (7-18) mg/dl Creatinine (0.6-1.2) mg/dl POC Creatinine (0.6-1.3) mg/dl Est Cr Clr Drug Dosing Est GFR ( Amer) Est GFR (Non-Af Amer) BUN/Creatinine Ratio (10-20) Glucose (70-99) mg/dl POC Glucose (other) (70-99) mg/dl Lactate (0.4-2.0) mmol/L Calcium (8.5-10.1) mg/dl POC Ioniz Calcium Natacha (1.12-1.32) mmol/l Magnesium (1.8-2.4) mg/dl Total Bilirubin (0.2-1) mg/dl AST (15-37) U/L ALT (12-78) U/L Alkaline Phosphatase (45-117) U/L Troponin I (0-0.045) ng/ml Total Protein (6.4-8.2) gm/dl Albumin (3.4-5.0) gm/dl Globulin (2.5-4.0) gm/dl Albumin/Globulin Ratio (0.9-2) Urine Color Yellow Urine Appearance Clear (Clear) Urine pH 5.0 (4.5-7.5) Ur Specific Oscar > 1.045 H (1.000-1.030) Urine Protein Negative (Negative) Urine Glucose (UA) Negative (Negative) Urine Ketones Negative (Negative) Urine Blood 2+ H (Negative) Urine Nitrite Negative (Negative) Urine Bilirubin Negative (Negative) Urine Urobilinogen Negative (Negative) Ur Leukocyte Esterase Negative (Negative) Urine WBC (Auto) 1-5 (0-5) /hpf Urine RBC (Auto) 0-4 (0-4) /hpf U Hyaline Cast (Auto) 5-10 H (0-5) /lpf U Epithel Cells (Auto) >30 H (0-5) /lpf Urine Bacteria (Auto) Negative (Negative) Ur Renal Epithelial Cell Not Reportable SARS-CoV-2 Ag (Rapid) Negative (Negative) Blood Type Antibody Screen Administered Medications Discontinued Medications Alteplase, Recombinant (Tpa For Stroke) 1 ea IV NOW STA; Protocol Stop: 02/29/20 15:08 Last Admin: 02/29/20 15:32 Dose: 1 ea Documented by: [id number] Diphenhydramine HCl (Diphenhydramine 50 Mg/Ml Vial) 50 mg IV NOW STA Stop: 02/29/20 16:31 Last Admin: 02/29/20 16:40 Dose: 50 mg Documented by: [id number] Famotidine (Famotidine 20mg/5ml Iv Push) 20 mg IV NOW STA Stop: 02/29/20 16:31 Last Admin: 02/29/20 16:40 Dose: 20 mg Documented by: [id number] Alteplase, Recombinant 7.4 mg/ (Syringe) 7.4 mls @ 7.4 mls/min IV ONCE ONE Stop: 02/29/20 15:18 Last Admin: 02/29/20 15:30 Dose: 7.4 mls/min Documented by: [id number] Cosigned by: [id number] Alteplase, Recombinant 66 mg/ (EMPTY BAG) 66 mls @ 66 mls/hr IV ONCE ONE Stop: 02/29/20 15:19 Last Infusion: 02/29/20 16:25 Dose: 0 mls/hr Documented by: [id number] Cosigned by: [id number] Admin: 02/29/20 15:31 Dose: 66 mls/hr Documented by: [id number] Cosigned by: [id number] Ioversol (Optiray 320 125ml) 118 ml IV ONCE ONE Stop: 02/29/20 14:28 Last Admin: 02/29/20 14:27 Dose: 1 ml Documented by: [id number] Labetalol HCl (Labetalol Hcl Iv 5 Mg/Ml 20ml) 10 mg IV NOW STA Stop: 02/29/20 16:12 Last Admin: 02/29/20 16:45 Dose: Not Given Documented by: [id number] Methylprednisolone (Methylprednisolone 125 Mg/2 Ml Vial) 125 mg IV NOW STA Stop: 02/29/20 16:31 Last Admin: 02/29/20 16:40 Dose: 125 mg Documented by: [id number] Ondansetron HCl (Ondansetron Inj 2 Mg/Ml 2 Ml Vial) Confirm Administered Dose 4 mg .ROUTE .STK-MED ONE Stop: 02/29/20 14:24 Last Admin: 02/29/20 14:25 Dose: 4 mg Documented by: [id number] Discharge Plan Visit Data Chief Complaint: Stroke Alert ED Provider: Alfonzo Rodas Discharge Problem: Stroke, Atrial fibrillation, Angioedema, Carotid artery occlusion Patient Disposition: Admitted As Inpatient Condition: Critical Discharge Instructions Interventions: ED Discharge Assessment Last Done: 02/29/20 17:30 Discharge Problem: Stroke Qualifiers: CVA mechanism: occlusion Precerebral and cerebral artery: middle cerebral art carlyle Laterality of affected vessel: left Qualified Code(s): I63.512 - Cerebral infarction due to unspecified occlusion or stenosis of left middle cerebral artery Atrial fibrillation Qualifiers: Atrial fibrillation type: unspecified chronic Qualified Code(s): I48.20 - Chronic atrial fibrillation, unspecified Angioedema Qualifiers: Encounter type: initial encounter Qualified Code(s): T78.3XXA - Angioneurotic edema, initial encounter Carotid artery occlusion Qualifiers: Laterality: left Qualified Code(s): I65.22 - Occlusion and stenosis of left carotid artery
[2020-02-29] MEDS ORDERED: LABETALOL HCL IV 5 MG/ML 20ML IV STA (16:11)
[2020-02-29 16:17] LABS: Appearance Urine Clear (Clear); Bacteria Urine Automated Negative (Negative); Bilirubin Urine Negative (Negative); Blood Urine 2+ (Negative); Color Urine Yellow; Epithelial Cell Urine Auto >30 /lpf (0-5); Glucose Urine UA Negative (Negative); Ketones Urine Negative (Negative); Leukocyte Esterase Urine Negative (Negative); Nitrite Urine Negative (Negative); Protein Urine Negative (Negative); RBC Urine Automated 0-4 /hpf (0-4); Specific Gravity Urine > 1.045 (1.000-1.030); Urobilinogen Urine Negative (Negative)
[2020-02-29] MEDS ORDERED: methylPREDNISolone 125 MG/2 ML VIAL IV STA (16:30)
[2020-02-29] MEDS ORDERED: FAMOTIDINE 20MG/5ML IV PUSH IV STA (16:30)
[2020-02-29] MEDS ORDERED: diphenhydrAMINE 50 MG/ML VIAL IV STA (16:30)
[2020-02-29] MEDS ORDERED: EPINEPHrine INJ 1 MG/ML AMP IM ONE (17:26)
[2020-02-29] MEDS ORDERED: ICU PROTOCOL FOR HYPERGLYCEMIA PRN (17:42)
[2020-02-29] MEDS ORDERED: LABETALOL HCL IV 5 MG/ML 20ML IV PRN (17:42)
[2020-02-29] MEDS ORDERED: EPINEPHrine INJ 1 MG/ML AMP SQ ONE (17:45)
[2020-02-29] MEDS ORDERED: PIPERACILL/TAZOBAC CONSULT ACTIVE PRN (17:48)
[2020-02-29] MEDS ORDERED: NORMOSOL-R 1,000 ML IV SCH (17:50)
[2020-02-29] MEDS ORDERED: PIPERACILLIN/TAZOBACTAM 3.375 GM in DEXTROSE 5% 100 ML IV ONE (18:00)
--- NOTE | 2020-02-29 19:33 | Critical Care Consultation ---
Date of Consultation February 29, 2020 Assessment & Plan (1) Acute CVA (cerebrovascular accident): 85-year-old female presents to the ICU post TPA administration, and displays angioedema after having an anaphylactic reaction to alteplase. She did receive Solu-Medrol, Benadryl and epinephrine subcu in the emergency department and she has reportedly showed some improvement since then. She received half dose alteplase. She is on long-term anticoagulation with Coumadin for A. fib and INR was 1.7, and ultimately decision was made by family and [place] neurology to proceed with TPA administration after she was found to have left MCA occlusion, and left carotid artery stenosis. Initial plan for patient was in the event that she were to decompensate or develop bleed that she would be transition to comfort care. I did discuss with the patient's daughter goals of care, who had called the ICU shortly after the patient's arrival. Ultimately family has decided to transition the patient to comfort care at this time, and comfort care measures have been initiated. Family has made plans to visit in the a.m. which has been approved. I spoke separately with the patient's son, and he would like to be informed along with the daughter of any changes in the patient's condition. Patient may transfer from ICU at this time. Please feel free to contact us if further assistance is needed. I have personally spent 36 minutes of critical care time in the direct management of this patient. This is a life/limb threatening event. This includes time spent evaluating patient, direct bedside care, chart review, placing orders, interpretation of diagnostic studies, discussion with consultants, patient, and family members, as well as other required patient management activities. This time is exclusive of all separately billable procedures, and teaching time and separate from and in addition to any other critical care service time. Thank you for allowing us to participate in the care of this patient. Please refer to my attending physician's documentation for any further recommendations. (2) Stroke: (3) Angioedema: (4) Carotid artery occlusion: (5) HTN (hypertension): (6) Atrial fibrillation: (7) Anemia: (8) GI bleed: (9) Depression: Supervising Physician Co-Signing Physician Notes I saw and discussed the patient with Smith Tamez, I agree with the above note. Patient seen and examined. 85 yo with PMHx of dementia came with stroke like symptoms. Patient got TPA in the ED which was complicated by anaphylaxis for which Epinephrine Subq was ordered. Patient didn't get full dose of TPA. At the time of examination patient is hemiparetic on the right side. + Babinsky on the right. Actively moving DOV and LL extremity. Not following commands. Gazing towards the left side. Patient is DNR/DNI. In ICU for post TPA monitoring. In any event of clinical deterioration, no aggressive measures. Keep patient comfortable. Aspiration precautions. History of Present Illness Attending Physician: Pieter Haq MD History of Present Illness 85-year-old female that presented earlier this afternoon to the emergency department as a stroke alert after having a witnessed change in mental status. No intracranial bleed on CT, however patient was on Coumadin initial INR was 1.9 with POC but final was 1.7. CT angiogram showed evidence of left carotid artery occlusion as well as acute left MCA thrombus. She was evaluated by [place] neurology and discussion was held with family in regards to transfer and TPA. Ultimately, patient's family was not interested and transfer and did consent to TPA administration. However, if patient were to decompensate or develop bleed they wanted to transition to comfort care. Patient received half dose TPA and developed anaphylactic reaction with tongue swelling and angioedema. She was given Solu-Medrol, Pepcid, and Benadryl and subcu epinephrine 0.5 mg was administered as well. She was made DNR/DNI, but transferred to the ICU for post TPA protocol. On arrival to the ICU patient is nonverbal, shows right-sided neglect and hemiplegia. She has positive Babinski reflex in the right side. Given the significance of the patient's deficits, long-term prognosis at this time is guarded. Family is aware of the patient's condition, and I did discuss with the patient's granddaughter and her daughter (POA) the patient's goals of care. At this time family is in agreement that they would like to transition the patient to comfort care. Comfort care orders have been placed. Family is currently improved for visitation, and has made plans to visit in the morning. They would like to be notified immediately if there are any changes in status overnight. Per family request, please call son and daughter separately for updates. Allergies Allergy/AdvReac Type Severity Reaction Status Date / Time No Known Allergies Allergy Unverified 02/29/20 15:33 Home Medications Medication Instructions Recorded Confirmed Type atorvastatin 20 mg PO QAM #0 tab 05/05/15 02/29/20 History warfarin 2 mg PO 4XWK #0 tab 08/24/16 02/29/20 History sertraline 100 mg PO QAM #0 tab 10/09/16 02/29/20 History metoprolol succinate 50 mg PO BID 04/17/18 02/29/20 History warfarin 1 mg PO TUTHSA 04/17/18 02/29/20 History lisinopril 30 mg PO DAILY 02/29/20 02/29/20 History Patient History Medical History Anemia Atrial fibrillation Depression Dyslipidemia GI bleed H/O secondary malignant neoplasm of retroperitoneum and peritoneum HTN (hypertension) Mass of hepatic flexure of colon 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 TIA (transient ischemic attack) Vertigo Surgical History S/P partial colectomy "04/26/98" S/P partial hysterectomy S/P small bowel resection "01/18/99" Social History Smoking Status: Never smoker Feels Safe at Home: Yes Review of Systems Review of Systems: Unobtainable due to cognitive status Physical Exam Constitutional: + altered mental status; + uncooperative Eyes: PERRL, conjunctivae normal, anicteric sclerae No nystagmus, gaze deviates to the left ENMT: Patient does have angioedema and swelling of tongue Neck: trachea midline, no thyromegaly Respiratory: Nonlabored breathing, no respiratory distress Cardiovascular: RRR, no murmur, no edema Heart Sounds: normal S1 and normal S2 Extremities: normal capillary refill; no edema Gastrointestinal (Abdomen): normal bowel sounds, soft, nontender, no hepatosplenomegaly Skin: no rashes, warm and dry Neurologic: Nonverbal, unable to follow commands, right side hemiparesis, deviated gaze to the left. Pupils equal round reactive to light. Babinski reflex positive in right foot. Psychiatric: Unable to assess as patient is currently nonverbal Results & Data Results & Data ([facility]) Vital Signs (Past 12 Hours) Vital Signs Temp Pulse Pulse Resp BP BP Pulse Ox 02/29/20 18:30 100 H 24 150/90 H 100 02/29/20 18:00 102 H 24 131/89 100 02/29/20 17:30 36.6 C 110 H 24 144/102 H 96 02/29/20 17:15 36.8 C 103 H 26 H 134/76 96 02/29/20 17:00 36.8 C 95 H 21 130/76 96 02/29/20 16:45 36.8 C 86 23 134/76 100 02/29/20 16:30 36.8 C 109 H 17 81/49 L 97 02/29/20 16:15 36.7 C 113 H 20 103/57 L 98 02/29/20 16:00 36.7 C 111 H 25 H 142/112 H 100 02/29/20 15:45 97 H 20 130/101 H 99 02/29/20 15:31 94 H 15 142/83 H 97 02/29/20 15:04 92 H 15 153/87 H 100 02/29/20 15:01 88 15 152/124 H 100 02/29/20 14:56 36.4 C L 20 02/29/20 14:45 86 19 144/97 H 100 02/29/20 14:42 87 18 141/99 H 100 02/29/20 14:39 97 H 23 172/159 H 100 Coding Level of Care Code Critical Care 1st 30-74 mins Diagnoses Acute CVA (cerebrovascular accident) I63.9 Stroke I63.512 CVA mechanism: occlusion Laterality of affected vessel: left Precerebral and cerebral artery: middle cerebral artery Angioedema T78.3XXA Encounter type: initial encounter Carotid artery occlusion I65.22 Laterality: left HTN (hypertension) I10 Atrial fibrillation I48.20 Atrial fibrillation type: unspecified chronic Anemia D64.9 GI bleed K92.2 Depression F32.9 (1) Carotid artery occlusion Laterality: left Qualified Code(s): I65.22 - Occlusion and stenosis of left carotid artery (2) Angioedema Encounter type: initial encounter Qualified Code(s): T78.3XXA - Angioneurotic edema, initial encounter (3) Atrial fibrillation Atrial fibrillation type: unspecified chronic Qualified Code(s): I48.20 - Chronic atrial fibrillation, unspecified (4) Stroke CVA mechanism: occlusion Laterality of affected vessel: left Precerebral and cerebral artery: middle cerebral artery Qualified Code(s): I63.512 - Cerebral infarction due to unspecified occlusion or stenosis of left middle cerebral artery
[2020-02-29] MEDS ORDERED: LORazepam 0.5 MG TAB PO PRN (20:07)
[2020-02-29] MEDS ORDERED: ONDANSETRON INJ 2 MG/ML 2 ML VIAL IV PRN (20:07)
[2020-02-29] MEDS ORDERED: ONDANSETRON 4 MG OD TAB SL PRN (20:07)
[2020-02-29] MEDS ORDERED: GLYCOPYRROLATE 0.2 MG/ML VIAL IV PRN (20:07)
[2020-02-29] MEDS ORDERED: ATROPINE SULFATE 1% OP SOLN 2 ML BTL SL PRN (20:07)
[2020-02-29] MEDS ORDERED: LORazepam 0.5 MG/1 ML VIAL IV PRN (20:07)
[2020-02-29] MEDS ORDERED: PROCHLORPERAZINE 5 MG in SYRINGE 4 ML IV PRN (20:07)
[2020-02-29] MEDS: MAGNESIUM SULFATE / D5W 1 GM/100 ML BAG IV SCH ×2 (20:45→20:46)
--- NOTE | 2020-02-29 22:44 | Electrocardiogram Report ---
Test Reason : Blood Pressure : / mmHG Vent. Rate : 092 BPM Atrial Rate : 062 BPM P-R Int : 000 ms QRS Dur : 076 ms QT Int : 384 ms P-R-T Axes : 000 058 -31 degrees QTc Int : 474 ms Poor data quality, interpretation may be adversely affected Atrial fibrillation Abnormal ECG When compared with ECG of 25-SEP-2018 08:01, No significant change Confirmed by Westley Castro ([id number]) on 02/29/2020 10:43:41 PM Referred By: REFERRED SELF Confirmed By:Westley Castro
[2020-03-01] MEDS ORDERED: PIPERACILLIN/TAZOBACTAM 3.375 GM in DEXTROSE 5% 100 ML IV SCH
[2020-03-01] MEDS: MoRPHine SULFATE 2 MG/ML CARP IV PRN ×3 (05:48→15:42)
--- NOTE | 2020-03-01 10:05 | Palliative Care Consultation ---
Date of Consultation March 01, 2020 Assessment & Plan (1) Palliative care encounter: This individual was brought to the [facility] with altered mental status. She has a history that includes: Afib, metastatic colon cancer, dementia, dyslipidemia, depression, hypertension, multiple TIAs, and CKD stage III. The patient was evaluated in the ED and ultimately was obtunded. The patient does live at her home and has caregivers assisting her. She slipped out of her chair and become unresponsive. TPA was administered, but she had an anaphylactic reaction to the TPA and it was discontinued. Initially, the patient was in the ICU, and conversation was held with the family regarding goals of care. the family at that time, did decide to focus on comfort measures only. Palliative Care was consulted to discuss goals of care and provide symptom management. I met with the patient in room 385-2. Her daughter, Patrica, was at the bedside with her. She was granted visitation, along with her brother and granddaughter, Raheel. The patient did not wake for me nor did she follow commands. She did move her left arm and her left foot; however, not necessarily meaningfully. Patrica did express that the last time she ate was two days ago. The patient has received two doses of Morphine in the past 24 hours and has a furrowed brow. Nursing did administer a dose while I was in the room. We will continue to monitor her decline over the next 24-48 hours. Should she remain stable without overall decline, will readdress discharge disposition to home with hospice vs SNF etc. All questions answered to family. For now, life expectancy appears to be days to a week or so. We will continue to reassess. (2) Acute CVA (cerebrovascular accident): (3) Vascular dementia: (4) H/O secondary malignant neoplasm of retroperitoneum and peritoneum: History of Present Illness Reason for Consultation: Goals of Care Requesting Physician: Bonifacio MEDINA Attending Physician: Maliha Cerrato DO History of Present Illness This individual was brought to the [facility] with altered mental status. She has a history that includes: Afib, metastatic colon cancer, dementia, dyslipidemia, depression, hypertension, multiple TIAs, and CKD stage III. The patient was evaluated in the ED and ultimately was obtunded. The patient does live at her home and has caregivers assisting her. She slipped out of her chair and become unresponsive. TPA was administered, but she had an anaphylactic reaction to the TPA and it was discontinued. Initially, the patient was in the ICU, and conversation was held with the family regarding goals of care. the family at that time, did decide to focus on comfort measures only. Palliative Care was consulted to discuss goals of care and provide symptom management. Please see A/P for further details. Thank you kindly for involving the palliative care team with this individual. We will follow and provide support for the family. Allergies Allergy/AdvReac Type Severity Reaction Status Date / Time No Known Allergies Allergy Unverified 02/29/20 15:33 Home Medications Medication Instructions Recorded Confirmed Type atorvastatin 20 mg PO QAM #0 tab 05/05/15 02/29/20 History warfarin 2 mg PO 4XWK #0 tab 08/24/16 02/29/20 History sertraline 100 mg PO QAM #0 tab 10/09/16 02/29/20 History metoprolol succinate 50 mg PO BID 04/17/18 02/29/20 History warfarin 1 mg PO TUTHSA 04/17/18 02/29/20 History lisinopril 30 mg PO DAILY 02/29/20 02/29/20 History Patient History Medical History (Updated 03/01/20 @ 16:30 by ADAM Cardenas) Anemia Atrial fibrillation Depression Dyslipidemia GI bleed H/O secondary malignant neoplasm of retroperitoneum and peritoneum HTN (hypertension) Mass of hepatic flexure of colon 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 Palliative care encounter Radiation enterocolitis TIA (transient ischemic attack) Vascular dementia Vertigo Surgical History S/P partial colectomy "04/26/98" S/P partial hysterectomy S/P small bowel resection "01/18/99" Social History Smoking Status: Never smoker Communication Ability: Unable marital status: / Feels Safe at Home: Yes Assistive Devices: None Review of Systems Review of Systems: Unobtainable due to reduced consciousness Physical Exam Constitutional: + acute distress, + ill appearing and + obese Respiratory: normal respiratory effort Auscultation: + diminished lung sounds Cardiovascular: Rate/Rhythm: regular rate and regular rhythm Heart Sounds: normal S1 and normal S2 Gastrointestinal (Abdomen): normal bowel sounds, soft, nontender, no hepatosplenomegaly Skin: no rashes, warm and dry Psychiatric: Orientation: + not alert PG Care Time/CCT Total # of Minutes Spent Total Time Spent with Patient: Total time spent is greater than 50% in coordination of care (as documented) at patient's floor/unit and/or counseling patient: 100 Coding Level of Care Code 21812 Inpt Consult Level 4 Diagnoses Palliative care encounter Z51.5 Acute CVA (cerebrovascular accident) I63.9 Vascular dementia F01.50 H/O secondary malignant neoplasm of retroperitoneum and peritoneum Z85.9 Time Spent (min) 100 Time Spent Midlevel Total time spent 100 minutes with > 50% of that time spent assessing the patient, discussing goals of care, providing symptom management, and collaborating with family and IDT
--- NOTE | 2020-03-01 17:52 | Hospitalist Progress Note ---
Date of Service March 01, 2020 Assessment & Plan (1) Comfort measures only status: Palliative has see the patient and has written orders. She appears very comfortable after this recent dose of morphine. (2) Acute CVA (cerebrovascular accident): stroke alert on arrival and was given TPA with subsequent allergic reaction and angioedema. She received Solu-Medrol, Benadryl, epinephrine, phenylephrine and the infusion was stopped. She was notably subtherapeutic on coumadin on arrival and was monitored overnight in the ICU. (3) Angioedema: Treated and this appears to have improved significantly today if not resolved. (4) DVT prophylaxis: Comfort measures DNR Dispo-morphine PRN, may need to move to SNF based on needs and clinical progress in the next 1-2 days. Maliha Cerrato DO [facility] and Anticipated Discharge Date Admission Date: February 29, 2020 Subjective 85 yo F who presented with a stoke, received TPA, had anaphylaxis, and was ultimately made comfort care. Palliative provider has seen the patient and discussed the palliative treatment plan goals with family who are in agreement. Visitation exception has been granted to this family. The patient is obtunded but resists me moving her around to examine her. She appears very comfortable and her breathing is regular and normal. Review of Systems Review of Systems: Unobtainable due to cognitive status Physical Exam Physical Exam: CONSTITUTIONAL: WNWD, vitals as above, generally well- appearing EYES: couldn't examine eyes and she had them shut tight. ENT: external ear and nose normal, MMM RESPIRATORY: clear to auscultation bilaterally, no crackles, rales or wheezes, normal respiratory effort CARDIOVASCULAR: regular rate and rhythm, S1 and 2 heard without murmurs, gallops or rubs, no JVD, no peripheral edema GASTROINTESTINAL: soft, nondistended, no guarding. MUSCULOSKELETAL: cannot assess 2/2 patient obtunded. SKIN: warm and dry NEUROLOGIC: obtunded, some resistance to movement of her LUE and LLE but her RUE and RLE are passive and flaccid. She withdraws to physical stimulus of being moved around for examination purposes. Results & Data Results & Data ([facility]) Laboratory Results Cardiac Enzymes 02/29/20 Range/Units 18:19 Troponin I < 0.015 (0-0.045) ng/ml Diagnostic Findings [facility], [id number] CT Scan Report Patient: ANASTASIA LEVY Date: 02/29/20MR#: [id number]: [address]Acct ID:[id number]: [facility]: [facility] Zip: [place], [place] [address]Vpn: 85Location: EDSex: FRoom/Bed:Att Phy:Diagnosis: STROKE ALERTPri Phy: Vipul Eduardo MD([facility]INUK)Service Date: 02/29/20Fa Phy:Interpreting Phy: Elmer Lau MDAdmit Phy: Ordering Phy: Alfonzo Rodas M.D. cc: ~ CT angio head w con CLINICAL HISTORY: Acute stroke TECHNIQUE: CT angiography of the head was performed in a dynamic helical fashion during intravenous administration of 118 cc of Optiray 320. MIP imaging was performed. A dose lowering technique was utilized adhering to the principles of ALARA. CT DOSE: 530.22 mGy.cm COMPARISON STUDY: No previous studies for comparison. FINDINGS: The left internal carotid artery is occluded. The anterior communicating artery is patent. There are no lesion suspicious for aneurysm. The dural venous sinuses appear patent. There is occlusion of the M1 segment of the left middle cerebral artery. There is stenosis of the P2 segment of the right posterior cerebral artery. IMPRESSION: 1. Left internal carotid artery occlusion 2. Occlusion of the M1 segment left middle cerebral artery 3. Stenosis of the P2 segment of the right posterior cerebral artery ACT 112: Negative or not required by law. Electronically signed by: Elmer Lau M.D. 02/29/2020 2:43 PM Dictated: 02/29/20 1437Transcribed: 02/29/20 1437 Medications Administered Current Inpatient Medications Atropine Sulfate (Atropine Sulfate 1% Op Soln 2 Ml Btl) 4 drops SL Q1H PRN PRN Reason: Secretions or Pulm Congestion Stop: 03/30/20 20:06 Glycopyrrolate (Glycopyrrolate 0.2 Mg/Ml Vial) 0.2 mg IV Q4H PRN PRN Reason: Secretions or Pulm Congestion Stop: 03/30/20 20:06 Prochlorperazine 5 mg/ Syringe 5 mls @ 5 mls/min IV Q6H PRN PRN Reason: Nausea And Vomiting Stop: 03/30/20 20:06 Lorazepam (Ativan) 0.5 mg in 1 mls @ 1 mls/min IV Q4H PRN PRN Reason: Anxiety/Agitation Stop: 03/30/20 20:06 Lorazepam (Lorazepam 0.5 Mg Tab) 0.5 mg PO Q4H PRN PRN Reason: Anxiety/Agitation Stop: 03/30/20 20:06 Morphine Sulfate (Morphine Sulfate 2 Mg/Ml Carp) 2 mg IV Q4H PRN PRN Reason: Pain or Respiratory Distress Stop: 03/14/20 20:06 Last Admin: 03/01/20 15:42 Dose: 2 mg Documented by: Ondansetron HCl (Ondansetron 4 Mg Od Tab) 4 mg SL Q4H PRN PRN Reason: Nausea And Vomiting Stop: 03/30/20 20:06
[2020-03-02] MEDS: MoRPHine SULFATE 2 MG/ML CARP IV PRN ×2 (02:33→11:12)
--- NOTE | 2020-03-02 16:30 | Palliative Care Progress Note ---
Date of Service March 02, 2020 Assessment & Plan (1) Palliative care encounter: Continued decline with no signs of active dying process. Morphine is effective for comfort. Continue with prn use. Will increase dose frequency to every two hours as needed. Called daughter, Patrica, twice at home and once on cell to update. No answer. (2) Acute CVA (cerebrovascular accident): Admission and Anticipated Discharge Date Admission Date: February 29, 2020 Subjective Unresponsive to verbal or tactile stimuli. Appears comfortable. Has had morphine x 2 today for discomfort which has been effective (12mg OME total). Review of Systems Review of Systems: Unobtainable due to cognitive status [place] Symptom Assessment Scale Pain 0/3 by painAD Dyspnea 0/3 by RDOS Drowsiness 3/3 Palliative Performance Score 10% Physical Exam Constitutional: no acute distress Respiratory: normal respiratory effort; no labored breathing Gastrointestinal (Abdomen): incontinent, no constipation Skin: no rashes, warm and dry no mottling PG Care Time/CCT Total # of Minutes Spent Total Time Spent with Patient: Total time spent is greater than 50% in coordination of care (as documented) at patient's floor/unit and/or counseling patient: 25 minutes with more than 50% of time spent on coordination of care and symptom management. Coding Level of Care Code 94992 Subseq Hosp Care Lvl 2 Diagnoses Palliative care encounter Z51.5 Acute CVA (cerebrovascular accident) I63.9 Time Spent (min) 25
--- NOTE | 2020-03-02 17:59 | Hospitalist Progress Note ---
Date of Service March 02, 2020 Assessment & Plan (1) Comfort measures only status: Palliative has see the patient and has written orders. She appears very comfortable on the current strategy with morphine. Would start to look for SNF options for hospice care, if this is the wish of the family. (2) Acute CVA (cerebrovascular accident): stroke alert on arrival and was given TPA with subsequent allergic reaction and angioedema. She received Solu-Medrol, Benadryl, epinephrine, phenylephrine and the infusion was stopped. She was notably subtherapeutic on coumadin on arrival and was monitored overnight in the ICU. Shortly after this she was transitioned to comfort care measures and moved to the floor. Still with residual deficits on the left side. (3) Angioedema: Treated and this appears to have improved significantly today if not resolved. (4) DVT prophylaxis: Comfort measures DNR Dispo-morphine PRN, may need to move to SNF based on needs and clinical progress in the next 1-2 days. Maliha [facility]errato [facility] and Anticipated Discharge Date Admission Date: February 29, 2020 Subjective cc: Acute stroke with reaction to TPA, comfort care measures Last dose of morphine today was around 11:00 which was several hours ago and the patient still appears very comfortable. She is not exhibiting any work of breathing or facial grimacing. She is unable to open her eyes and wake up to talk to me today. Review of Systems Review of Systems: Unobtainable due to cognitive status Physical Exam Physical Exam: CONSTITUTIONAL: WNWD, vitals as above, generally well- appearing EYES: couldn't examine eyes and she had them shut tight. ENT: external ear and nose normal, MMM RESPIRATORY: Bilateral equal breath sounds CARDIOVASCULAR: regular rate and rhythm, S1 and 2 heard without murmurs, gallops or rubs, no JVD, no peripheral edema GASTROINTESTINAL: soft, nondistended, no guarding. MUSCULOSKELETAL: cannot assess 2/2 patient obtunded. SKIN: warm and dry NEUROLOGIC: obtunded, some resistance to movement of her LUE and LLE but her RUE and RLE are passive and flaccid. She withdraws to physical stimulus of being moved around for examination purposes. Results & Data Results & Data ([facility]) Medications Administered Current Inpatient Medications Atropine Sulfate (Atropine Sulfate 1% Op Soln 2 Ml Btl) 4 drops SL Q1H PRN PRN Reason: Secretions or Pulm Congestion Stop: 03/30/20 20:06 Glycopyrrolate (Glycopyrrolate 0.2 Mg/Ml Vial) 0.2 mg IV Q4H PRN PRN Reason: Secretions or Pulm Congestion Stop: 03/30/20 20:06 Prochlorperazine 5 mg/ Syringe 5 mls @ 5 mls/min IV Q6H PRN PRN Reason: Nausea And Vomiting Stop: 03/30/20 20:06 Lorazepam (Ativan) 0.5 mg in 1 mls @ 1 mls/min IV Q4H PRN PRN Reason: Anxiety/Agitation Stop: 03/30/20 20:06 Lorazepam (Lorazepam 0.5 Mg Tab) 0.5 mg PO Q4H PRN PRN Reason: Anxiety/Agitation Stop: 03/30/20 20:06 Morphine Sulfate (Morphine Sulfate 2 Mg/Ml Carp) 2 mg IV Q2H PRN PRN Reason: Pain or Respiratory Distress Stop: 03/14/20 20:06 Ondansetron HCl (Ondansetron 4 Mg Od Tab) 4 mg SL Q4H PRN PRN Reason: Nausea And Vomiting Stop: 03/30/20 20:06
[2020-03-03] MEDS: MoRPHine SULFATE 2 MG/ML CARP IV PRN ×5 (01:34→23:26)
--- NOTE | 2020-03-03 10:21 | Palliative Care Progress Note ---
Date of Service March 03, 2020 Assessment & Plan (1) Palliative care encounter: Ms. Chavez continues to decline. She has utilized 3 doses of Morphine over the past day. Morphine continues to be effective for comfort, will continue Q2 PRN dosing. Discussed with nursing to administer Morphine for facial grimacing, furrowed brow, breathing changes, etc. Dhruv, Ms. Chavez's son was at the bedside and all questions answered. She has not eaten and is not waking much now. Would not transfer out of hospital due to declining stability. Palliative will continue to follow and offer support to family and symptom management to patient. Life expectancy a few days. (2) Acute CVA (cerebrovascular accident): Patient not moving right side Some sporadic, not necessarily purposeful movement Admission and Anticipated Discharge Date Admission Date: February 29, 2020 Subjective Pt did open her eyes this morning for her son, but has been minimally responsive to staff throughout the day. pt son at bedside and updated Review of Systems Review of Systems: [place] Symptom Assessment Scale Pain 0/3 by painAD Dyspnea 0/3 by visual inspection Drowsiness 3/3 Palliative Performance Score 10% Physical Exam Constitutional: + acute distress, + ill appearing and + obese Respiratory: normal respiratory effort Auscultation: + diminished lung sounds Cardiovascular: Rate/Rhythm: regular rate and regular rhythm Heart Sounds: normal S1 and normal S2 Gastrointestinal (Abdomen): normal bowel sounds, soft, nontender, no hepatosplenomegaly Skin: no rashes, warm and dry Psychiatric: Orientation: + not alert PG Care Time/CCT Total # of Minutes Spent Total Time Spent with Patient: Total time spent is greater than 50% in coordination of care (as documented) at patient's floor/unit and/or counseling patient: 35 Coding Level of Care Code 58438 Subseq Hosp Care Lvl 3 Diagnoses Palliative care encounter Z51.5 Acute CVA (cerebrovascular accident) I63.9 Time Spent (min) 35 Time Spent Midlevel Total time spent 35 minutes with > 50% of that time spent assessing the patient, discussing end of life symptoms and symptom management with family and IDT
--- NOTE | 2020-03-03 12:43 | Hospitalist Progress Note ---
Date of Service March 03, 2020 Assessment & Plan (1) Comfort measures only status: Palliative has see the patient and has written orders. She appears very comfortable on the current strategy with morphine. Would start to look for SNF options for hospice care, if this is the wish of the family. Condition is critical but stable Remains unstable to be transferred (2) Acute CVA (cerebrovascular accident): stroke alert on arrival and was given TPA with subsequent allergic reaction and angioedema. She received Solu-Medrol, Benadryl, epinephrine, phenylephrine and the infusion was stopped. She was notably subtherapeutic on coumadin on arrival and was monitored overnight in the ICU. Shortly after this she was transitioned to comfort care measures and moved to the floor. Still with residual deficits on the left side. Remains unresponsive Critical but stable We will continue current management to keep her comfortable The son agrees with the decision (3) Angioedema: Treated and this appears to have improved significantly today if not resolved. (4) DVT prophylaxis: Comfort measures DNR Dispo-morphine PRN, may need to move to SNF based on needs and clinical progress in the next 1-2 days. Admission and Anticipated Discharge Date Admission Date: February 29, 2020 Subjective 03/03/2020 The patient was seen and examined in medical floor in presence of the son She remains comfortable, responsive to vocal commands with opening eyes but has not been communicating Review of Systems Review of Systems: Unobtainable due to mental health condition Physical Exam Physical Exam: Lying in bed comfortably Constitutional: well developed, well nourished and + ill appearing; no acute distress ENMT: external ear and nose normal, oropharynx normal Neck: trachea midline, no thyromegaly Respiratory: no respiratory distress Auscultation: + diminished lung sounds; no crackles Cardiovascular: Rate/Rhythm: regular rate and regular rhythm Heart Sounds: + murmur (Trace edema bilaterally) Gastrointestinal (Abdomen): Inspection/Auscultation: normal bowel sounds; abdomen not distended Percussion/Palpation: abdomen soft; abdomen nontender Neurologic: Alert and awake. Not communicating Results & Data Results & Data ([place]) Medications Administered Current Inpatient Medications Atropine Sulfate (Atropine Sulfate 1% Op Soln 2 Ml Btl) 4 drops SL Q1H PRN PRN Reason: Secretions or Pulm Congestion Stop: 03/30/20 20:06 Glycopyrrolate (Glycopyrrolate 0.2 Mg/Ml Vial) 0.2 mg IV Q4H PRN PRN Reason: Secretions or Pulm Congestion Stop: 03/30/20 20:06 Prochlorperazine 5 mg/ Syringe 5 mls @ 5 mls/min IV Q6H PRN PRN Reason: Nausea And Vomiting Stop: 03/30/20 20:06 Lorazepam (Ativan) 0.5 mg in 1 mls @ 1 mls/min IV Q4H PRN PRN Reason: Anxiety/Agitation Stop: 03/30/20 20:06 Lorazepam (Lorazepam 0.5 Mg Tab) 0.5 mg PO Q4H PRN PRN Reason: Anxiety/Agitation Stop: 03/30/20 20:06 Morphine Sulfate (Morphine Sulfate 2 Mg/Ml Carp) 2 mg IV Q2H PRN PRN Reason: Pain or Respiratory Distress Stop: 03/14/20 20:06 Last Admin: 03/03/20 10:47 Dose: 2 mg Documented by: Ondansetron HCl (Ondansetron 4 Mg Od Tab) 4 mg SL Q4H PRN PRN Reason: Nausea And Vomiting Stop: 03/30/20 20:06
[2020-03-04] MEDS: MoRPHine SULFATE 2 MG/ML CARP IV PRN ×2 (02:53→09:14)
--- NOTE | 2020-03-04 14:11 | Hospitalist Progress Note ---
Date of Service March 04, 2020 Assessment & Plan (1) Comfort measures only status: Palliative has see the patient and has written orders. She appears very comfortable on the current strategy with morphine. Would start to look for SNF options for hospice care, if this is the wish of the family. Condition is critical but stable Remains unstable to be transferred Remains stable and comfortable (2) Acute CVA (cerebrovascular accident): stroke alert on arrival and was given TPA with subsequent allergic reaction and angioedema. She received Solu-Medrol, Benadryl, epinephrine, phenylephrine and the infusion was stopped. She was notably subtherapeutic on coumadin on arrival and was monitored overnight in the ICU. Shortly after this she was transitioned to comfort care measures and moved to the floor. Still with residual deficits on the left side. Remains unresponsive Critical but stable We will continue current management to keep her comfortable The son agrees with the decision Has been moving left-sided extremities with commands (3) Angioedema: Treated and this appears to have improved significantly today if not resolved. (4) DVT prophylaxis: Comfort measures DNR Dispo-morphine PRN, may need to move to SNF based on needs and clinical progress in the next 1-2 days. Admission and Anticipated Discharge Date Admission Date: February 29, 2020 Subjective 03/03/2020 The patient was seen and examined in medical floor in presence of the son She remains comfortable, responsive to vocal commands with opening eyes but has not been communicating 03/04/2020 The patient was seen and examined in presence of the son She remains semiresponsive but stable Review of Systems Review of Systems: Unobtainable due to reduced consciousness Physical Exam Physical Exam: Lying in bed comfortably Constitutional: well developed, well nourished and + ill appearing; no acute distress ENMT: external ear and nose normal, oropharynx normal Neck: trachea midline, no thyromegaly Respiratory: no respiratory distress Auscultation: + diminished lung sounds; no crackles Cardiovascular: Rate/Rhythm: regular rate and regular rhythm Heart Sounds: + murmur (Trace edema bilaterally) Gastrointestinal (Abdomen): Inspection/Auscultation: normal bowel sounds; abdomen not distended Percussion/Palpation: abdomen soft; abdomen nontender
--- NOTE | 2020-03-05 10:09 | Palliative Care Progress Note ---
Date of Service March 05, 2020 Assessment & Plan (1) Palliative care encounter: Met with son, Zackary, in room at bedside. Updated him that vital signs and urine output have been stable over last three days. Though she has not had any po intake for six days. While status can often change quickly, it would appear that she has days to live at this point. Discussed continuing comfort directed care in hospital vs home with hospice. Zackary recently went through caring for his father in law at home on hospice in September. Family would have unrestricted visitation with her at home on hospice. He is considering this and will discuss with family. I did also discuss this with case management if family decides that they would want to try hospice. (2) Comfort measures only status: Pain controlled with prn morphine. No audible secretions. Appears comfortable at this time. (3) Acute CVA (cerebrovascular accident): Admission and Anticipated Discharge Date Admission Date: February 29, 2020 Subjective Eyes open, not really tracking. Picking at sheets. She has not had po intake since 02/27. Last dose of morphine was 24 hours ago. Per RN, she seems comfortable at rest and with routine care. Review of Systems Review of Systems: Unobtainable due to cognitive status [facility] Symptom Assessment Scale Pain AD 0/3 Dyspnea by RDOS 0/3 Palliative Performace Score 20% Physical Exam Constitutional: no acute distress Respiratory: normal respiratory effort; no labored breathing Cardiovascular: Extremities: no edema no mottling Gastrointestinal (Abdomen): Percussion/Palpation: abdomen nontender Musculoskeletal: moving left arm and leg Skin: no rashes, warm and dry Neurologic: aphasic, right hemiparesis Genitourinary: Urine output decreased by stable last three days Results & Data ([facility]) Vital Signs (Past 12 Hours) Vital Signs Pulse Resp BP Pulse Ox 03/05/20 09:07 127 H 20 153/105 H 97 PG Care Time/CCT Total # of Minutes Spent Total Time Spent with Patient: Total time spent is greater than 50% in coordination of care (as documented) at patient's floor/unit and/or counseling patient: Total time spent 40 minutes with more than 50% of time spent on discussing prognosis, goals of care and coordination of care. Coding Level of Care Code 84674 Subseq Hosp Care Lvl 3 Diagnoses Palliative care encounter Z51.5 Comfort measures only status Z51.5 Acute CVA (cerebrovascular accident) I63.9 Time Spent (min) 40
--- NOTE | 2020-03-05 16:02 | Hospitalist Progress Note ---
Date of Service March 05, 2020 Assessment & Plan (1) Comfort measures only status: Palliative has see the patient and has written orders. She appears very comfortable on the current strategy with morphine. Would start to look for SNF options for hospice care, if this is the wish of the family. Condition is critical but stable Remains unstable to be transferred Remains stable and comfortable If remains stable over the weekend likely to be transferred to a facility/home with hospice care (2) Acute CVA (cerebrovascular accident): stroke alert on arrival and was given TPA with subsequent allergic reaction and angioedema. She received Solu-Medrol, Benadryl, epinephrine, phenylephrine and the infusion was stopped. She was notably subtherapeutic on coumadin on arrival and was monitored overnight in the ICU. Shortly after this she was transitioned to comfort care measures and moved to the floor. Still with residual deficits on the left side. Remains unresponsive Critical but stable We will continue current management to keep her comfortable The son agrees with the decision Has been moving left-sided extremities with commands (3) Angioedema: Treated and this appears to have improved significantly today if not resolved. (4) DVT prophylaxis: Comfort measures DNR Dispo-morphine PRN, may need to move to SNF based on needs and clinical progress in the next 1-2 days. Admission and Anticipated Discharge Date Admission Date: February 29, 2020 Subjective 03/03/2020 The patient was seen and examined in medical floor in presence of the son She remains comfortable, responsive to vocal commands with opening eyes but has not been communicating 03/04/2020 The patient was seen and examined in presence of the son She remains semiresponsive but stable 03/05/2020 The patient was seen and examined in presence of her son in medical floor She remains semiresponsive Has been moving left-sided extremities at times Review of Systems Review of Systems: Unobtainable due to reduced consciousness Physical Exam Physical Exam: Lying in bed comfortably Constitutional: well developed, well nourished and + ill appearing; no acute distress ENMT: external ear and nose normal, oropharynx normal Neck: trachea midline, no thyromegaly Respiratory: no respiratory distress Auscultation: + diminished lung sounds; no crackles Cardiovascular: Rate/Rhythm: regular rate and regular rhythm Heart Sounds: + murmur (Trace edema bilaterally) Gastrointestinal (Abdomen): Inspection/Auscultation: normal bowel sounds; abdomen not distended Percussion/Palpation: abdomen soft; abdomen nontender Neurologic: Minimally responsive to painful stimuli and vocal commands Results & Data Results & Data ([facility]) Vital Signs (Past 12 Hours) Vital Signs Pulse Resp BP Pulse Ox 03/05/20 09:07 127 H 20 153/105 H 97
[2020-03-05] MEDS: MoRPHine SULFATE 2 MG/ML CARP IV PRN (17:29)
--- NOTE | 2020-03-06 17:50 | Hospitalist Progress Note ---
Date of Service March 06, 2020 Assessment & Plan (1) Comfort measures only status: Palliative has see the patient and has written orders. She appears very comfortable on the current strategy with morphine. Would start to look for SNF options for hospice care, if this is the wish of the family. Condition is critical but stable Remains unstable to be transferred Remains stable and comfortable If remains stable over the weekend likely to be transferred to a facility/home with hospice care We will keep her comfortable (2) Acute CVA (cerebrovascular accident): stroke alert on arrival and was given TPA with subsequent allergic reaction and angioedema. She received Solu-Medrol, Benadryl, epinephrine, phenylephrine and the infusion was stopped. She was notably subtherapeutic on coumadin on arrival and was monitored overnight in the ICU. Shortly after this she was transitioned to comfort care measures and moved to the floor. Still with residual deficits on the left side. Remains unresponsive Critical but stable We will continue current management to keep her comfortable The son agrees with the decision Has been moving left-sided extremities with commands (3) Angioedema: Treated and this appears to have improved significantly today if not resolved. (4) DVT prophylaxis: Comfort measures DNR Dispo-morphine PRN, may need to move to SNF based on needs and clinical progress in the next 1-2 days. Admission and Anticipated Discharge Date Admission Date: February 29, 2020 Subjective 03/03/2020 The patient was seen and examined in medical floor in presence of the son She remains comfortable, responsive to vocal commands with opening eyes but has not been communicating 03/04/2020 The patient was seen and examined in presence of the son She remains semiresponsive but stable 03/05/2020 The patient was seen and examined in presence of her son in medical floor She remains semiresponsive Has been moving left-sided extremities at times 03/06/2020 The patient was seen and examined in medical floor Remains unconscious but stable Review of Systems Review of Systems: Unobtainable due to reduced consciousness Physical Exam Physical Exam: Unconscious in bed Constitutional: well developed and well nourished; no acute distress and not ill appearing ENMT: external ear and nose normal, oropharynx normal Neck: trachea midline, no thyromegaly Respiratory: no respiratory distress Auscultation: + diminished lung sounds; no crackles Cardiovascular: Rate/Rhythm: regular rate and regular rhythm Heart Sounds: + murmur (Trace edema bilaterally) Gastrointestinal (Abdomen): Inspection/Auscultation: normal bowel sounds; abdomen not distended Percussion/Palpation: abdomen soft; abdomen nontender
--- NOTE | 2020-03-07 13:27 | Hospitalist Progress Note ---
Date of Service March 07, 2020 Assessment & Plan (1) Comfort measures only status: Palliative has see the patient and has written orders. She appears very comfortable on the current strategy with morphine. Would start to look for SNF options for hospice care, if this is the wish of the family. Condition is critical but stable Remains unstable to be transferred Remains stable and comfortable If remains stable over the weekend likely to be transferred to a facility/home with hospice care We will keep her comfortable Remains stable we will plan for possible discharge with hospice care at home or in a facility tomorrow (2) Acute CVA (cerebrovascular accident): stroke alert on arrival and was given TPA with subsequent allergic reaction and angioedema. She received Solu-Medrol, Benadryl, epinephrine, phenylephrine and the infusion was stopped. She was notably subtherapeutic on coumadin on arrival and was monitored overnight in the ICU. Shortly after this she was transitioned to comfort care measures and moved to the floor. Still with residual deficits on the left side. Remains unresponsive Critical but stable We will continue current management to keep her comfortable The son agrees with the decision Has been moving left-sided extremities with commands (3) Angioedema: Treated and this appears to have improved significantly today if not resolved. (4) DVT prophylaxis: Comfort measures DNR Dispo-morphine PRN, may need to move to SNF based on needs and clinical progress in the next 1-2 days. Admission and Anticipated Discharge Date Admission Date: February 29, 2020 Subjective 03/03/2020 The patient was seen and examined in medical floor in presence of the son She remains comfortable, responsive to vocal commands with opening eyes but has not been communicating 03/04/2020 The patient was seen and examined in presence of the son She remains semiresponsive but stable 03/05/2020 The patient was seen and examined in presence of her son in medical floor She remains semiresponsive Has been moving left-sided extremities at times 03/06/2020 The patient was seen and examined in medical floor Remains unconscious but stable 03/07/2020 Patient was seen and examined in medical floor in presence of the son She remains unresponsive, critical but stable Review of Systems Review of Systems: Unobtainable due to reduced consciousness Physical Exam Physical Exam: Unconscious in bed without any apparent distress Constitutional: well developed and well nourished; no acute distress and not ill appearing ENMT: external ear and nose normal, oropharynx normal Neck: trachea midline, no thyromegaly Respiratory: no respiratory distress Auscultation: + diminished lung sounds; no crackles Cardiovascular: Rate/Rhythm: regular rate and regular rhythm Heart Sounds: + murmur (Trace edema bilaterally) Gastrointestinal (Abdomen): Inspection/Auscultation: normal bowel sounds; abdomen not distended Percussion/Palpation: abdomen soft; abdomen nontender
--- NOTE | 2020-03-08 09:21 | Palliative Care Progress Note ---
Date of Service March 08, 2020 Assessment & Plan (1) Palliative care encounter: Met with the patient in her room. Patient opened her eyes, did not necessarily track to me, but appeared to look at me once during the encounter. She did not follow commands. Patient appears very comfortable. She has not required medicinal intervention, including Morphine, since 03/05. Some hematuria noted in her diehl bag, would suggest changing her diehl out since she has had an indwelling for 8 days. Patient has even respirations, no signs of mottling. She is tachycardic, but pt continues to have urine output and is arousable. Suggested that her tachycardia could be linked to pain that she can not c ommunicate. Suggested she receive a dose of Morphine. Anticipate her life expectancy may be a few more days. Case management has nelson in close contact with family regarding returning home with hospice services as we did set this expectation this past week. Family has agreed for patient to return to her sonZackary's house with [facility] tomorrow Friday 03/09. Barring any other changes, she is stable for discharge. Called to pt sonZackary and left message. He has been in close contact with Heather from case management. IDT updated. (2) Comfort measures only status: Pain controlled with prn morphine. No audible secretions. Appears comfortable at this time. (3) Acute CVA (cerebrovascular accident): Patient not moving right side Some sporadic, not necessarily purposeful movement Admission and Anticipated Discharge Date Admission Date: February 29, 2020 Review of Systems Review of Systems: [place] Symptom Assessment Scale Pain AD 0/3 Dyspnea by RDOS 0/3 Palliative Performance Score 20% Physical Exam Constitutional: + obese Respiratory: normal respiratory effort Auscultation: + diminished lung sounds Cardiovascular: Rate/Rhythm: regular rate and regular rhythm Heart Sounds: normal S1 and normal S2 Gastrointestinal (Abdomen): normal bowel sounds, soft, nontender, no hepatosp lenomegaly Skin: no rashes, warm and dry Psychiatric: Orientation: + not alert PG Care Time/CCT Total # of Minutes Spent Total Time Spent with Patient: Total time spent is greater than 50% in coordination of care (as documented) at patient's floor/unit and/or counseling patient: 35 Coding Level of Care Code 52687 Subseq Hosp Care Lvl 3 Diagnoses Palliative care encounter Z51.5 Comfort measures only status Z51.5 Acute CVA (cerebrovascular accident) I63.9 Time Spent (min) 35 Time Spent Midlevel Total time spent 35 minutes with > 50% of that time spent assessing the patient, discussing goals of care with IDT and addressing symptom management
[2020-03-08] MEDS: MoRPHine SULFATE 2 MG/ML CARP IV PRN (13:25)
--- NOTE | 2020-03-08 14:19 | Hospitalist Progress Note ---
Date of Service March 08, 2020 Assessment & Plan (1) Comfort measures only status: Palliative has see the patient and has written orders. She appears very comfortable on the current strategy with morphine. Would start to look for SNF options for hospice care, if this is the wish of the family. Condition is critical but stable Remains unstable to be transferred Remains stable and comfortable If remains stable over the weekend likely to be transferred to a facility/home with hospice care We will keep her comfortable Remains stable we will plan for possible discharge with hospice care at home or in a facility tomorrow Remains critical but stable Appreciate palliative care input and recommendation Like to be discharged with home hospice tomorrow (2) Acute CVA (cerebrovascular accident): stroke alert on arrival and was given TPA with subsequent allergic reaction and angioedema. She received Solu-Medrol, Benadryl, epinephrine, phenylephrine and the infusion was stopped. She was notably subtherapeutic on coumadin on arrival and was monitored overnight in the ICU. Shortly after this she was transitioned to comfort care measures and moved to the floor. Still with residual deficits on the left side. Remains unresponsive Critical but stable We will continue current management to keep her comfortable The son agrees with the decision Has been moving left-sided extremities with commands Condition seems to be worse today when moving the left side with commands (3) Angioedema: Treated and this appears to have improved significantly today if not resolved. (4) DVT prophylaxis: Comfort measures DNR Dispo-morphine PRN, may need to move to SNF based on needs and clinical progress in the next 1-2 days. Possible transfer home with hospice tomorrow Admission and Anticipated Discharge Date Admission Date: February 29, 2020 Subjective 03/03/2020 The patient was seen and examined in medical floor in presence of the son She remains comfortable, responsive to vocal commands with opening eyes but has not been communicating 03/04/2020 The patient was seen and examined in presence of the son She remains semiresponsive but stable 03/05/2020 The patient was seen and examined in presence of her son in medical floor She remains semiresponsive Has been moving left-sided extremities at times 03/06/2020 The patient was seen and examined in medical floor Remains unconscious but stable 03/07/2020 Patient was seen and examined in medical floor in presence of the son She remains unresponsive, critical but stable 03/08/2020 The patient was seen and examined in medical floor He remains unresponsive and critical but hemodynamically stable Physical Exam Physical Exam: Unconscious in bed without any apparent distress Constitutional: well developed and well nourished; no acute distress and not ill appearing ENMT: external ear and nose normal, oropharynx normal Neck: trachea midline, no thyromegaly Respiratory: no respiratory distress Auscultation: + diminished lung sounds; no crackles Cardiovascular: Rate/Rhythm: regular rate and regular rhythm Heart Sounds: + murmur (Trace edema bilaterally) Gastrointestinal (Abdomen): Inspection/Auscultation: normal bowel sounds; abdomen not distended Percussion/Palpation: abdomen soft; abdomen nontender
--- NOTE | 2020-03-09 11:00 | Hospitalist Progress Note ---
Date of Service March 09, 2020 Assessment & Plan (1) Comfort measures only status: Palliative has see the patient and has written orders. She appears very comfortable on the current strategy with morphine. Would start to look for SNF options for hospice care, if this is the wish of the family. Condition is critical but stable Remains unstable to be transferred Remains stable and comfortable If remains stable over the weekend likely to be transferred to a facility/home with hospice care We will keep her comfortable Remains stable we will plan for possible discharge with hospice care at home or in a facility tomorrow Remains critical but stable Appreciate palliative care input and recommendation Like to be discharged with home hospice tomorrow She will be discharged home with hospice this afternoon (2) Acute CVA (cerebrovascular accident): stroke alert on arrival and was given TPA with subsequent allergic reaction and angioedema. She received Solu-Medrol, Benadryl, epinephrine, phenylephrine and the infusion was stopped. She was notably subtherapeutic on coumadin on arrival and was monitored overnight in the ICU. Shortly after this she was transitioned to comfort care measures and moved to the floor. Still with residual deficits on the left side. Remains unresponsive Critical but stable We will continue current management to keep her comfortable The son agrees with the decision Has been moving left-sided extremities with commands Condition seems to be worse today when moving the left side with commands Prognosis remains poor (3) Angioedema: Treated and this appears to have improved significantly today if not resolved. (4) DVT prophylaxis: Comfort measures DNR Dispo-morphine PRN, may need to move to SNF based on needs and clinical progress in the next 1-2 days. Home with hospice this afternoon at around 1 PM Admission and Anticipated Discharge Date Admission Date: February 29, 2020 Subjective 03/03/2020 The patient was seen and examined in medical floor in presence of the son She remains comfortable, responsive to vocal commands with opening eyes but has not been communicating 03/04/2020 The patient was seen and examined in presence of the son She remains semiresponsive but stable 03/05/2020 The patient was seen and examined in presence of her son in medical floor She remains semiresponsive Has been moving left-sided extremities at times 03/06/2020 The patient was seen and examined in medical floor Remains unconscious but stable 03/07/2020 Patient was seen and examined in medical floor in presence of the son She remains unresponsive, critical but stable 03/08/2020 The patient was seen and examined in medical floor He remains unresponsive and critical but hemodynamically stable 03/09/2020 The patient was seen and examined in medical floor She remains unresponsive and critical but stable She will be discharged home with hospice today Review of Systems Review of Systems: Unobtainable due to reduced consciousness Physical Exam Physical Exam: Unconscious in bed without any apparent distress Constitutional: well developed and well nourished; no acute distress and not ill appearing ENMT: external ear and nose normal, oropharynx normal Neck: trachea midline, no thyromegaly Respiratory: no respiratory distress Auscultation: + diminished lung sounds; no crackles Cardiovascular: Rate/Rhythm: regular rate and regular rhythm Heart Sounds: + murmur (Trace edema bilaterally) Gastrointestinal (Abdomen): Inspection/Auscultation: normal bowel sounds; abdomen not distended Percussion/Palpation: abdomen soft; abdomen nontender Neurologic: Occasional movements of the left-sided extremities
--- NOTE | 2020-03-09 18:33 | Discharge Summary ---
Date of Service March 09, 2020 Admission HPI Per Admitting Provider Patient is an 85-year-old female with history of atrial fibrillation, metastatic colon cancer, dementia, dyslipidemia, depression, hypertension, multiple TIAs, CKD stage III and other medical problems presents with history of altered mental status. Patient is obtunded while in ED and unable to provide any history secondary to mental status. Most of the history is obtained from patient's son at bedside, ER physician and old records. 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 At around 1:15 PM, patient slipped out of her chair and became obtunded. While in ED, patient is nonverbal and remains obtunded. She does not follow commands but still was able to move her extremities although decreased movement in right upper extremity noted. Stroke alert was called, and as per recommendations from daily neurology--TPA was administered based on CTA findings. Shortly after administering TPA's, patient had anaphylactic reaction to TPA and was discontinued. Patient received Solu-Medrol, Benadryl, famotidine, epinephrine and was transferred to ICU for further management. Patient son who is the POA confirmed the CODE STATUS to be DNI DNR. Admission Exam Per Admitting Provider Physical Exam: Physical Exam: Vitals signs as noted above General Appearance:Moderately built and nourished, no apparent distress Head: normocephalic, Atraumatic Eyes: normal inspection, sluggish pupillary reaction Neck: supple, Trachea midline Respiratory/Chest: Normal breath sounds, CTA, No accessory muscle use Cardiovascular: Irregularly irregular No murmur Abdomen/GI:Soft, Non tender, Bowel sounds present Extremities/Musculoskelatal:normal inspection, + B/L LE edema Neurologic/Psych: Obtunded, complete neurological exam could not be performed. Skin: normal color, warm Principal Diagnosis Acute stroke, remains unresponsive and not communicating with occasional movements of breath left-sided extremities Discharge Exam Constitutional well developed and well nourished; no acute distress and not ill appearing ENMT external ear and nose normal, oropharynx normal Neck trachea midline, no thyromegaly Respiratory no respiratory distress Auscultation: + diminished lung sounds; no crackles Cardiovascular Rate/Rhythm: regular rate and regular rhythm Heart Sounds: + murmur (Trace edema bilaterally) Gastrointestinal (Abdomen) Inspection/Auscultation: normal bowel sounds; abdomen not distended Percussion/Palpation: abdomen soft; abdomen nontender Discharge Data Allergies Allergy/AdvReac Type Severity Reaction Status Date / Time No Known Allergies Allergy Unverified 02/29/20 15:33 Consultations 02/29/20 15:28 ED Decision to Admit Stat 02/29/20 17:42 Consult Case Management - Discharge Planning Routine Consult Case Management - Discharge Planning Routine Consult Second Chef Routine 02/29/20 20:08 Consult Case Management - Discharge Planning Routine Consult Palliative Care Routine Ordered Studies 02/29/20 14:08 CT head/brain wo con Stat 02/29/20 14:14 CT angio head w con Stat CT angio neck with con Stat Hospital Course (1) Comfort measures only status: Palliative has see the patient and has written orders. She appears very comfortable on the current strategy with morphine. Would start to look for SNF options for hospice care, if this is the wish of the family. Condition is critical but stable Remains unstable to be transferred Remains stable and comfortable If remains stable over the weekend likely to be transferred to a facility/home with hospice care We will keep her comfortable Remains stable we will plan for possible discharge with hospice care at home or in a facility tomorrow Remains critical but stable Appreciate palliative care input and recommendation Like to be discharged with home hospice tomorrow She will be discharged home with hospice this afternoon (2) Acute CVA (cerebrovascular accident): stroke alert on arrival and was given TPA with subsequent allergic reaction and angioedema. She received Solu-Medrol, Benadryl, epinephrine, phenylephrine and the infusion was stopped. She was notably subtherapeutic on coumadin on arrival and was monitored overnight in the ICU. Shortly after this she was transitioned to comfort care measures and moved to the floor. Still with residual deficits on the left side. Remains unresponsive Critical but stable We will continue current management to keep her comfortable The son agrees with the decision Has been moving left-sided extremities with commands Condition seems to be worse today when moving the left side with commands Prognosis remains poor (3) Angioedema: Treated and this appears to have improved significantly today if not resolved. (4) DVT prophylaxis: Comfort measures DNR Dispo-morphine PRN, may need to move to SNF based on needs and clinical progress in the next 1-2 days. Home with hospice this afternoon at around 1 PM Total Time Total Time Spent Total Time Spent (In Minutes): 35 minutes Total Time Includes: Examination of the Patient, Discharge Planning, Medication Reconciliation and Communication With Other Providers Discharge Plan Discharge Items Patient Disposition: Hospice - Home Reason For Visit: STROKE Discharge Diagnosis: Acute stroke, remains unresponsive and not communicating with occasional movements of breath left-sided extremities Condition on Discharge: Critical Activity: As commented below Activity Comment: Needs ADL S Non-emergency contact: Primary Care Provider Call non-emergency contact if: you have any medication questions and your symptoms worsen Follow-up/Referrals: Vipul Eduardo MD [Primary Care Provider] - (As per hospice care) Diet: Other - See Diet Comment Diet Comment: Not being able to eat anything. As tolerated Addtl Attending Provider Instructions: Continue comfort and hospice care Pending Studies at Discharge: No Stand-Alone Forms: My [facility] Medications and DC Order Prescriptions: New lorazepam 0.5 mg Tablet 0.5 mg PO Q4H PRN (Reason: agitation) 5 Days Qty: 30 RF: 0 atropine 1 % Drops 4 drp sublingual Q1H PRN (Reason: secretions) 10 Days Qty: 1 RF: 0 ondansetron 4 mg Tablet,Disintegrating 4 mg sublingual Q4H PRN (Reason: nausea and vomiting) 10 Days Qty: 20 RF: 0 morphine 10 mg/5 mL solution 5 mg PO Q6H PRN (Reason: pain) Qty: 50 RF: 0 Discontinued atorvastatin 20 mg Tablet 20 mg PO QAM Qty: 0 RF: 0 warfarin 2 mg Tablet 2 mg PO 4XWK Qty: 0 RF: 0 sertraline 100 mg Tablet 100 mg PO QAM Qty: 0 RF: 0 metoprolol succinate 50 mg Tablet Extended Release 24 Hr 50 mg PO BID RF: 0 warfarin 2 mg Tablet 1 mg PO TUTHSA RF: 0 lisinopril 30 mg tablet 30 mg PO DAILY RF: 0 Discharge Orders: Discharge Order (Routine); Ordered 03/09/20 Ordered By: Narciso Yoo Admission Data Admit Date/Time: 02/29/20 16:39 Attending Provider: Narciso Yoo Admit Provider: Pieter Haq Primary Care Provider: Vipul Eduardo Other Providers: Pieter Haq ; Lenny Barragan ; Phuong Thacker ; Zoë Be ; Maliha Cerrato ; [facility] Other Interventions: Discharge Summary Assessment (RN) Last Done: 03/09/20 11:19
== END 2020-03-09 14:22 | disposition hospice, home (50) | DRG 61 ==
LOC: ED 14:04 → 1E 16:39 → SUATTDRO 16:39 → 1E 17:30 → 3N 21:24